=== PATIENT | female | born 1935 | race Caucasian/White ===

== ENCOUNTER 2020-02-25 03:10 | Emergency (ER) | payer MEDICARE, SELFPAY ==
--- NOTE | ~2020-02-25 | XR_ITS ---
EXAMINATION: XR shoulder RT min 2V INDICATION: Right shoulder pain, initial encounter TECHNIQUE: Four views of the right shoulder are submitted. COMPARISON: None FINDINGS: There is an acute, traumatic, closed greater tuberosity fracture of the right humerus. Alig nment at the glenohumeral and acromioclavicular joints appears normal. 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 Soft tissue swelling overlies the fracture. No additional acute osseous f indings are evident. IMPRESSION: 1. Acute greater tuberosity fracture of the right humerus. Reviewed, dictated and finalized at location A.
[2020-02-25 03:16] VITALS: BP 144/77; PULSE 74; RESP 18; TEMP 36.7; O2SAT 98
[2020-02-25 03:24] VITALS: RESP 18
[2020-02-25] MEDS: MORPHINE SULFATE 4 MG/ML INJ IV PUSH (03:51)
--- NOTE | 2020-02-25 03:53 | ED.FALL ---
HPI - Fall General Chief Complaint: Fall Stated Complaint: abd pain Time Seen by Provider: 02/25/20 03:14 History of Present Illness HPI Narrative: Patient is an 84-year-old female who presents ER with right shoulder pain. Patient was walking in her home with the lights off when she tripped over a case of bottled water fell onto her right side. Sudden onset pain. Did not strike her head or lose consciousness. No numbness or tingling to the extremity. Hurts at the shoulder anytime she moves it. Related Data Home Medications Medication Instructions Recorded Confirmed fluticasone propionate 50 2 spray NASAL DAILY 05/16/19 02/10/20 mcg/actuation nasal spray,suspension mirabegron 25 mg tablet,extended 25 mg PO DAILY 05/16/19 02/10/20 release 24 hr Allergies Allergy/AdvReac Type Severity Reaction Status Date / Time benzonatate Allergy Unknown Unknown Verified 02/25/20 03:22 ciprofloxacin Allergy Unknown Unknown Verified 02/25/20 03:22 diclofenac Allergy Unknown Unknown Verified 02/25/20 03:22 NSAIDS (Non-Steroidal Allergy Unknown Unknown Verified 02/25/20 03:22 Anti-Inflamma Review of Systems Gastrointestinal: Gastrointestinal: Denies nausea and Denies vomiting Genitourinary: Genitourinary: Denies nocturia and Denies dysuria Musculoskeletal: Musculoskeletal: Denies back pain, Reports arthralgias, Denies joint swelling and Denies muscle cramps Neurologic: Denies focal weakness and Denies numbness PMF Past Medical History Medical History (Updated 02/25/20 @ 03:58 by Ghulam Ang MD) Benzodiazepine dependence Bone spur of left foot Breast cancer History of recurrent UTI (urinary tract infection) HTN (hypertension) Knee pain Lymphoma Opioid use disorder Surgical History Surgical History H/O bilateral cataract extraction H/O breast reconstruction H/O hysterectomy with unilateral oophorectomy H/O: hysterectomy History of hip replacement History of knee replacement History of lumpectomy History of lumpectomy of left breast Social History Social History (Updated 02/10/20 @ 13:39 by Dilma Loza CMA) Smoking status: Former smoker Second hand tobacco smoke exposure: No Smoking end date: 06/26/90 Alcohol intake: current Substance use: never Substance use type: does not use Living arrangements: alone Occupation/Education: retired Gender identity (if verbalized by the patient): Female Exam Narrative: Exam Narrative: GENERAL: Well-appearing, well-nourished, and in no acute distress. HEAD: Normocephalic, atraumatic. ENT: Mucous membranes moist. CHEST: Clear to auscultation. No respiratory distress. HEART: Regular rate and rhythm. Normal peripheral pulses. EXTREMITIES: Focused exam of the right upper extremity reveals tenderness to the shoulder with limited range of motion due to pain. Normal range of motion no tenderness at the elbow or wrist. Neurovascular intact distal to the injury in the right upper extremity. SKIN: Warm, dry, no rash. NEURO: No focal deficits. Alert and oriented x3. Course Course Emergency Course: Patient informed of results. Placed in a sling by nursing staff. Contact orthopedic surgery. Follow-up outpatient. Vital Signs Vital signs: Vital Signs Temperature 98.1 F 02/25/20 03:16 Pulse Rate 74 02/25/20 03:16 Respiratory Rate 18 02/25/20 03:16 Blood Pressure 144/77 H 02/25/20 03:16 Pulse Oximetry 98 02/25/20 03:16 Temperature 98.1 F 02/25/20 03:16 Pulse Rate 74 02/25/20 03:16 Respiratory Rate 18 02/25/20 03:24 Blood Pressure 144/77 H 02/25/20 03:16 Pulse Oximetry 98 02/25/20 03:16 MDM - Fall Imaging Data My impression: X-ray right shoulder: Greater tuberosity fracture. Discharge Plan Discharge Clinical Impression: Closed fracture of greater tuberosity of humerus Patient Disposition: Home, Self-Care Condition: Stable Instructi
[2020-02-25 04:22] VITALS: BP 147/78; PULSE 77; RESP 17; O2SAT 96
--- NOTE | 2020-02-25 04:22 | PC.NURSE ---
sling applied to R arm
== END 2020-02-25 04:38 | disposition home or self-care (01) ==
PROVIDERS: Emergency Provider Emergency Medicine; PCP Family Medicine
DX: S42.251A Displaced fracture of greater tuberosity of right humerus, initial encounter for closed fracture (principal); I10 Essential (primary) hypertension; Z85.3 Personal history of malignant neoplasm of breast; Z85.72 Personal history of non-Hodgkin lymphomas; Z87.440 Personal history of urinary (tract) infections; Z98.42 Cataract extraction status, left eye; Z98.41 Cataract extraction status, right eye; Z96.649 Presence of unspecified artificial hip joint; Z96.659 Presence of unspecified artificial knee joint; Z87.891 Personal history of nicotine dependence; W18.09XA Striking against other object with subsequent fall, initial encounter
CPT/HCPCS: 73030; 96374; 99284; A4565; J2270

== ENCOUNTER 2020-03-04 02:23 | Outpatient (CLI) | payer MEDICARE, SELFPAY ==
[2020-03-04 19:20] LABS: SARS-CoV-2 RNA PCR Negative
== END 2020-03-04 02:24 | disposition home or self-care (01) ==
LOC: ANHCOVIDDT 02:24
PROVIDERS: PCP Family Medicine; Visit Provider Orthopaedic Surgery
DX: Z01.812 Encounter for preprocedural laboratory examination (principal); Z20.828 Contact with and (suspected) exposure to other viral communicable diseases
CPT/HCPCS: 87635; C9803; U0003

== ENCOUNTER 2020-03-06 14:52 | Inpatient (IN) | payer MEDICARE, SELFPAY ==
[2020-03-03 14:04] VITALS: BMI 28.3
[2020-03-06] VITALS (14 sets, daily range): BP systolic 134–178; BP diastolic 55–88; PULSE 76–97; RESP 12–18; TEMP 36.3–37.6; O2SAT 91–100; BMI 29.4; BMI 31.5
--- NOTE | ~2020-03-06 | XR_ITS ---
EXAMINATION: XR surgery orthopedic DATE: 03/06/2020 12:41 INDICATION: ORIF right humeral fracture. TECHNIQUE: 10 fluoroscopic spot images of the right humerus were obtained during procedure performed by Dr. Akins. Radiologist was not present for the imaging or procedure. The amount of fluoroscop y time used during this procedure was 1.5 minutes. COMPARISON: 02/25/2020 FINDINGS: Interval reduction and internal fixation of the previously noted comminuted fracture of the proximal right humerus with a lateral plate and screws. Alignment post fixation appears near-anatomic. There i s widening of the glenohumeral joint space which could be related to contraction or the presence of a joint effusion. IMPRESSION: 1. Near-anatomic alignment post open reduction internal fixation of a proximal right humeral fracture . Reviewed, dictated and finalized at location A. IMPRESSION: 1. Near-anatomic alignment post open reduction internal fixation of a proximal right humeral fracture.
[2020-03-06] MEDS: LACTATED RINGERS 1,000 ML 30 ML IV CONT ×2 (09:25→13:12)
[2020-03-06] MEDS: ACETAMINOPHEN 500 MG TABLET 1000 MG PO (09:27)
--- NOTE | 2020-03-06 09:39 | WPDANESEPPF ---
Anes - Initial Pre Proc Eval Procedure: Operation Date: 03/06/20 10:00 Proposed Procedures p Open Reduction Internal Fixation Right Proximal Humerus Fracture - Cruz Akins MD Date/Time: 03/06/20 09:39 Surgeon: Cruz Akins MD Pre Op Diagnosis: right proximal humerus fx Patient Data Age: 84 Gender: F Height: 5 ft 5 in Weight: 77.2 kg Allergies Allergy/AdvReac Type Severity Reaction Status Date / Time benzonatate Allergy Unknown Unknown Verified 03/06/20 09:11 ciprofloxacin Allergy Unknown Joint Pain Verified 03/06/20 09:11 diclofenac Allergy Unknown Confusion Verified 03/06/20 09:11 NSAIDS (Non-Steroidal Allergy Unknown Gastrointestinal Verified 03/06/20 09:11 Anti-Inflamma Upset/BLEEDING Home Medications Medication Instructions Recorded Confirmed Type fluticasone propionate 50 2 spray NASAL PRN PRN 05/16/19 03/06/20 History mcg/actuation nasal spray,suspension loratadine 5 mg-pseudoephedrine ER 1 tablet PO DAILY PRN #30 tablet 09/11/19 03/06/20 Rx 120 mg tablet,extended release,12hr alprazolam 0.5 mg tablet 0.5 mg PO TID PRN #90 tablet 11/28/19 03/06/20 Rx azelastine 137 mcg NASAL PRN PRN 03/03/20 03/06/20 History oxycodone-acetaminophen 1 tablet PO Q6H PRN 03/03/20 03/06/20 History Patient hx anesthesia problems: none Family hx anesthesia problems: none PMFSH Past Medical History Medical History Benzodiazepine dependence Bone spur of left foot Breast cancer History of recurrent UTI (urinary tract infection) HTN (hypertension) Knee pain Lymphoma Opioid use disorder Surgical History Surgical History H/O bilateral cataract extraction H/O breast reconstruction H/O hysterectomy with unilateral oophorectomy H/O: hysterectomy History of hip replacement History of knee replacement History of lumpectomy History of lumpectomy of left breast Social History Social History Smoking packs per day: 0.5 Smoking cigarettes per day: 10.0 Years smoked: 20 Smoking pack-years: 10.00 Smoking status: Former smoker Second hand tobacco smoke exposure: No Smoking end date: 06/26/94 Alcohol intake: current Substance use: never Substance use type: does not use Living arrangements: alone Gender identity (if verbalized by the patient): Female Spiritual care concerns: No Anes - Eval Final PreProcedure Day of Procedure 03/06/20 09:39 Patient weight: overweight Heart: regular rate and rhythm Lungs: clear to auscultation Airway: Mallampati scale class II Neurological: other (alert) Last oral intake: >/= 8 hours ASA classification: III Emergent: no Anesthetic plan: proceed Anesthesia type and monitoring: general ETT and standard monitoring Informed Consent: The patient's anesthetic plan and its attendant risks and benefits were discussed with the patient/family/POA. Questions were solicited and answers provided to the satisfaction of the patient/family/POA.
--- NOTE | 2020-03-06 09:59 | SUR.PREOP ---
IMMOBILIZER REMAINS ON PT FOR PAIN CONTROL
--- NOTE | 2020-03-06 10:00 | PM.PROC ---
Procedure Note - Detailed Date of procedure: 03/06/20 Pre-op diagnosis: right proximal humerus fx Post-op diagnosis: same Procedure performed: Open reduction internal fixation right displaced 3 part proximal humerus fracture. Description of procedure: Fixation with locking plate and suture. Greater tuberosity fragment reduced with suture. Bone quality fair. allograft cancellous bone chips placed at the lateral fracture to assist in supporting the impacted humeral head. Implants: [employer] proximal humeral locking plate system. Proximal seated plate, standard length. Anesthesia: GETA Surgeon: Cruz Akins MD Transport Analyst: Mary Jo Coto PA-C, 1st executive assistant to general counsel Estimated blood loss (mL): 200 Complications: None Condition: stable Disposition: PACU Findings: Preoperative antibiotics were given. A general anesthetic was administered. The patient was carefully placed in a slight beach chair position. The Mendez head waiter was used. Fluoroscopic images were taken to assure that AP and axillary lateral views could be taken. The shoulder was prepped and draped in the usual sterile fashion. The articulating arm rod was utilized. Longitudinal incision was created over the anterior shoulder. The deltopectoral interval was developed. The cephalic vein was protected and retracted medially. Significant hematoma and soft tissue swelling was encountered. The fracture site was carefully identified. Biceps tendon was used for orientation. Gentle manipulation brought the shaft in better alignment. The head impaction was disimpacted carefully. The greater tuberosity was sutured to the lesser and head fragment for initial provisional fixation. Thereby, creating a 2 part fracture. Bone quality was poor. The plate was fashioned to the lateral humerus. Biplanar fluoroscopy was used throughout the procedure to confirm anatomic reduction, and appropriate placement of all implants. Multiple diverging locking screws were placed proximally and distal fixation was obtained with the dynamic screw initially, followed by 2 locking screws. Supplemental suture fixation was used into the greater tuberosity to pull the fragment down into a nearly anatomic position. Overall the construct was quite stable. The wound was irrigated and closed with 1. Vicryl suture, 2 O Vicryl suture, running Quill suture followed by Steri-Strips. A Mepilex dressing was placed. The patient was placed in a sling, extubated, and brought to the recovery room in stable condition.
--- NOTE | 2020-03-06 10:02 | WPDHPUPDATE1 ---
History and Physical Update Update Date/Time: 03/06/20 10:02 History and Physical has been reviewed, including an updated exam of the patient. There are NO changes in the patient's condition. Risks, benefits, and alternatives have been discussed and questions answered. Patient agrees to proceed with procedure.
[2020-03-06] MEDS: ceFAZolin 2 GM/D5W 50 ML 2 GM/50 ML BAG IVPB (10:16)
--- NOTE | 2020-03-06 10:25 | SUR.PREOP ---
LATE NOTE, 0900; PT STATES OK TO USE LT ARM FOR IV AND BLOOD PRESSURE.
[2020-03-06] MEDS: BUPIVACAINE/EPINEPHRINE 0.5% 10 ML VIAL 20 ML INFILTRATE (10:45)
--- NOTE | 2020-03-06 14:31 | SUR.PHASEI ---
Dr. velasco is ok w/ BP and sending patient to floor.
--- NOTE | 2020-03-06 14:50 | ADMGEN ---
This patient, Fatmata Napier, was admitted to 2 Medical Room 256-. Patient/family oriented to hospital policies and general routines including ID bracelet, bed and alarms, visiting hours, pain management, procedures, bathroom and other care routines, personal items, smoking policy, room service/diet, and visiting hours. Valuables list has been completed. Information on how to activate the Rapid Response Team has been discussed. Patient/Family are encouraged to report perceived risks to care and to ask questions if they do not understand what they are told or what they should do.
[2020-03-06] MEDS: oxyCODONE/ACETAMINOPHEN 5-325 MG TABLET 2 TABLET PO ×2 (15:12→20:51)
[2020-03-06] MEDS: SODIUM CHLORIDE 0.9% IV 1,000 ML 125 ML IV CONT (15:13)
[2020-03-06] MEDS: ASPIRIN 81 MG ENTERIC TABLET PO (16:43)
[2020-03-06] MEDS: DOCUSATE SODIUM 100 MG CAPSULE PO (16:44)
--- NOTE | 2020-03-06 17:40 | PC.NURSE ---
Patient assisted to bathroom and tolerated activity well. Asked patient if she would like to sit up in the chair but patient declined and stated she would sit on the side of the bed to eat her dinner instead. Assisted to side of bed for dinner with bed alarm on.
[2020-03-06] MEDS: oxyCODONE/ACETAMINOPHEN 5-325 MG TABLET 1 TABLET PO (18:44)
[2020-03-06] MEDS: ALPRAZolam 0.5 MG TABLET PO (21:37)
[2020-03-07 00:37] VITALS: BP 119/49; PULSE 82; RESP 18; TEMP 36.7; O2SAT 95
[2020-03-07] MEDS: oxyCODONE/ACETAMINOPHEN 5-325 MG TABLET 1 TABLET PO ×3 (01:15→21:19)
[2020-03-07 04:37] VITALS: BP 146/51; PULSE 86; RESP 20; TEMP 37.3; O2SAT 93
[2020-03-07] MEDS: oxyCODONE/ACETAMINOPHEN 5-325 MG TABLET 2 TABLET PO ×2 (04:45→12:57)
[2020-03-07] MEDS: ASPIRIN 81 MG ENTERIC TABLET PO ×2 (08:10→17:12)
[2020-03-07] MEDS: DOCUSATE SODIUM 100 MG CAPSULE PO ×2 (08:10→17:12)
--- NOTE | 2020-03-07 09:28 | PM.PNORT ---
Progress Note: A&P Assessment and Plan (1) Displaced fracture of proximal end of right humerus: Code(s): S42.201A - Unspecified fracture of upper end of right humerus, initial encounter for closed fracture Status: Acute Assessment and Plan: Postop day 1 status post ORIF right proximal humerus. Doing well. Will start physical therapy and occupational therapy today. She will need 1-2 weeks of a rehab stay. Anticipate then home health care. She does live alone. She is significantly debilitated by the fracture at this time. Subjective Subjective Date/Time Seen: 03/07/20 09:28 Post Op day: 1 Interval history: Postop day 1 status post ORIF of the proximal humerus fracture. Patient is comfortable. Moderate pain. No neurologic deficit. She wishes to go to rehab, which is reasonable. Exam Narrative: Exam Narrative: Dressing intact. Moderate ecchymosis throughout the upper extremity and near the incision. She has a Mepilex dressing in place. No drainage. No erythema or warmth. No evidence for hematoma. Deltoid muscle fires. Axillary nerve sensation intact. Distal neurologic status normal. No edema mild edema. Alert oriented x3. Objective Data Vital Signs Vital Signs: Vital Signs - 24 hr 03/06/20 13:12 03/06/20 13:25 03/06/20 13:40 Temperature 36.4 C 36.4 C Pulse Rate 89 76 78 Respiratory Rate 15 14 16 Blood Pressure 173/81 H 176/77 H 161/73 H Pulse Oximetry 95 97 91 03/06/20 13:55 03/06/20 14:10 03/06/20 14:25 Temperature Pulse Rate 76 78 78 Respiratory Rate 16 18 12 Blood Pressure 175/80 H 176/79 H 169/88 H Pulse Oximetry 95 98 97 03/06/20 14:40 03/06/20 14:52 03/06/20 15:07 Temperature 36.3 C L 36.7 C Pulse Rate 79 79 79 Respiratory Rate 17 17 15 Blood Pressure 172/87 H 157/80 H 153/70 H Pulse Oximetry 97 100 100 03/06/20 15:37 03/06/20 15:52 03/06/20 16:37 Temperature 36.6 C 37.3 C Pulse Rate 77 78 77 Respiratory Rate 17 18 15 Blood Pressure 178/66 H 152/66 H Pulse Oximetry 99 95 100 03/06/20 18:50 03/07/20 00:37 03/07/20 04:37 Temperature 37.6 C 36.7 C 37.3 C Pulse Rate 97 82 86 Respiratory Rate 17 18 20 Blood Pressure 139/55 L 119/49 L 146/51 H Pulse Oximetry 98 95 93 Intake/Output Intake/Output: Intake & Output 03/04/20 03/05/20 03/06/20 03/07/20 23:59 23:59 23:59 23:59 Intake Total 985 190 Output Total 300 600 Balance 685 -410 Meds/Results Medications: Active Medications Generic Name Dose Route Start Last Admin Trade Name Freq PRN Reason Stop Dose Admin Alprazolam 0.5 mg 03/06/20 14:52 03/06/20 21:37 Xanax PO 0.5 mg TID PRN Administration anxiety Aspirin 81 mg 03/06/20 17:00 03/07/20 08:10 Aspirin Ec PO 81 mg BID ALBER Administration Azelastine HCl 1 spray 03/06/20 14:52 [place]elin NASAL PRN PRN Allergy Symptoms Docusate Sodium 100 mg 03/06/20 17:00 03/07/20 08:10 Colace Capsule PO 100 mg BID ALBER Administration Fluticasone Propionate 2 spray 03/06/20 14:52 Flonase 0.05% Nasal [place] NASAL PRN PRN Allergy Symptoms Non-Formulary Medication 1 tablet 03/06/20 14:52 Loratadine-Pseudoephedrine [Allergy Relief-D (Loratadine)] PO DAILY PRN sinus symptoms Oxycodone/Acetaminophen 1 tablet 03/06/20 14:52 03/07/20 01:15 Percocet 5-325 Mg PO 1 tablet Q6H PRN Administration pain Oxycodone/Acetaminophen 2 tablet 03/06/20 14:52 03/07/20 04:45 Percocet 5-325 Mg PO 2 tablet Q4H PRN Administration [facility] Results: ITS Impressions Intraoperative X-Ray 03/06/20 12:55 IMPRESSION: 1. Near-anatomic alignment post open reduction internal fixation of a proximal right humeral fracture.
[2020-03-07 10:15] VITALS: BP 136/60; PULSE 88; RESP 16; TEMP 37.2; O2SAT 93
[2020-03-07 14:00] VITALS: BP 132/60; PULSE 87; RESP 16; TEMP 36.6; O2SAT 95
[2020-03-07 18:00] VITALS: BP 148/60; PULSE 95; RESP 15; TEMP 36.7; O2SAT 96
[2020-03-07] MEDS: ALPRAZolam 0.5 MG TABLET PO (18:49)
[2020-03-07 22:54] VITALS: BP 144/56; PULSE 85; RESP 20; TEMP 36.6; O2SAT 96
[2020-03-08 05:55] VITALS: BP 154/65; PULSE 95; RESP 20; TEMP 36.6; O2SAT 93
[2020-03-08] MEDS: oxyCODONE/ACETAMINOPHEN 5-325 MG TABLET 1 TABLET PO ×3 (05:59→20:05)
[2020-03-08] MEDS: ASPIRIN 81 MG ENTERIC TABLET PO ×2 (08:34→16:56)
[2020-03-08] MEDS: DOCUSATE SODIUM 100 MG CAPSULE PO (08:34)
[2020-03-08] MEDS: ALPRAZolam 0.5 MG TABLET PO ×2 (10:07→16:56)
[2020-03-08 10:20] VITALS: BP 126/56; PULSE 81; RESP 16; TEMP 37.2; O2SAT 95
[2020-03-08 14:33] VITALS: BP 140/56; PULSE 79; RESP 15; TEMP 36.7; O2SAT 93
--- NOTE | 2020-03-08 16:23 | P.PNOP_ITS ---
Progress Note: A&P Assessment and Plan (1) Displaced fracture of proximal end of right humerus: Code(s): S42.201A - Unspecified fracture of upper end of right humerus, initial encounter for closed fracture Status: Acute Assessment and Plan: Pain adequately controlled. She had some confusion with 2 pain pills. The sling is ill-fitting but she can transition to the immobilizer. Making good progress with physical therapy. Neurologic status remains intact. Swelling is improving. Plan for rehab discharge tomorrow. Subjective Subjective Date/Time Seen: 03/08/20 16:23 Objective Data Vital Signs Vital Signs: Vital Signs - 24 hr 03/07/20 18:00 03/07/20 22:54 03/08/20 05:55 Temperature 36.7 C 36.6 C 36.6 C Pulse Rate 95 85 95 Respiratory Rate 15 20 20 Blood Pressure 148/60 H 144/56 H 154/65 H Pulse Oximetry 96 96 93 03/08/20 10:20 03/08/20 14:33 Temperature 37.2 C 36.7 C Pulse Rate 81 79 Respiratory Rate 16 15 Blood Pressure 126/56 L 140/56 L Pulse Oximetry 95 93 Intake/Output Intake/Output: Intake & Output 03/05/20 03/06/20 03/07/20 03/08/20 23:59 23:59 23:59 23:59 Intake Total 985 820 360 Output Total 300 1250 900 Balance 735 -836 -597 Meds/Results Medications: Active Medications Generic Name Dose Route Start Last Admin Trade Name Freq PRN Reason Stop Dose Admin Alprazolam 0.5 mg 03/06/20 14:52 03/08/20 10:07 Xanax PO 0.5 mg TID PRN Administration anxiety Aspirin 81 mg 03/06/20 17:00 03/08/20 08:34 Aspirin Ec PO 81 mg BID ALBER Administration Azelastine HCl 1 spray 03/06/20 14:52 Astelin NASAL PRN PRN Allergy Symptoms Docusate Sodium 100 mg 03/06/20 17:00 03/08/20 08:34 Colace Capsule PO 100 mg BID ALBER Administration Fluticasone Propionate 2 spray 03/06/20 14:52 Flonase 0.05% Nasal [place] NASAL PRN PRN Allergy Symptoms Mirabegron 25 mg 03/07/20 17:18 Myrbetriq PO DAILY PRN urinary frequency Oxycodone/Acetaminophen 1 tablet 03/06/20 14:52 03/08/20 13:17 Percocet 5-325 Mg PO 1 tablet Q6H PRN Administration pain Oxycodone/Acetaminophen 2 tablet 03/06/20 14:52 03/07/20 12:57 Percocet 5-325 Mg PO 2 tablet Q4H PRN Administration [facility] Results: ITS Impressions Intraoperative X-Ray 03/06/20 12:55 IMPRESSION: 1. Near-anatomic alignment post open reduction internal fixation of a proximal right humeral fracture.
[2020-03-08 18:15] VITALS: BP 144/65; PULSE 82; RESP 16; TEMP 37.2; O2SAT 95
[2020-03-08 20:00] VITALS: BP 138/58; PULSE 81; RESP 20; TEMP 36.9; O2SAT 100
[2020-03-09] MEDS: oxyCODONE/ACETAMINOPHEN 5-325 MG TABLET 1 TABLET PO ×3 (00:10→10:59)
[2020-03-09 04:00] VITALS: BP 118/64; PULSE 77; RESP 18; TEMP 36.9; O2SAT 97
[2020-03-09] MEDS: ALPRAZolam 0.5 MG TABLET PO (06:11)
[2020-03-09] MEDS: ASPIRIN 81 MG ENTERIC TABLET PO (08:15)
[2020-03-09 12:20] LABS: SARS-CoV-2 RNA PCR Negative
--- NOTE | 2020-03-25 17:07 | P.DS_ITS ---
DS: Admitting Diagnosis Admitting Diagnosis Admitting Diagnosis: right proximal humerus fx DS: Discharge Diagnosis Discharge Diagnosis (1) Displaced fracture of proximal end of right humerus: Code(s): S42.201A - Unspecified fracture of upper end of right humerus, initial encounter for closed fracture Status: Acute DS: Summary Hospital Course Reason for hospitalization: Open reduction and internal fixation of the displaced proximal humerus fracture. Hospital Course: Tolerated surgery well. Progressed appropriately with therapy. Status at Discharge Functional status at discharge: independent ambulation Overall status at discharge: patient is progressing back to baseline Time Spent with Patient Time attestation: Total time spent providing and/or coordinating discharge services: Exam Const: General: no acute distress Resp: Effort & Inspection: normal respiratory effort Skin: Other: Wound healing well. Mepilex dressing intact. No hematoma or drainage. Sling applied appropriately. Deltoid muscle fires. Axillary nerve sensation intact. Good coating machine helper strength. No edema. radial pulse palpable. Neuro: Motor exam (neuro): 5/5 motor strength present throughout Sensory Exam: normal sensation Psych: Mental Status: mental status grossly normal Speech and movement: Normal speech and movement present DS: Data Imaging Attestation: I personally reviewed and interpreted this imaging study as follows: ( Nearly anatomic ORIF of the right proximal humerus fracture. Implants intact.) Discharge Plan Discharge Attending physician on discharge: Cruz Akins Consulting providers: Shane Bill Discharging Clinician: Cruz Akins Patient Disposition: SNF Activity: may shower Diet: as tolerated Discharge Instructions: * Continue Mepilex dressing for 7 days. No further dressing needed. Steri- Strips can be removed. Use sling or immobilizer. May remove intermittently for comfort and hygiene and exercise. * Physical therapy and occupational consult evaluate and treat as indicated. Gentle range of motion passive and active-assist as tolerated. Patient Instructions: ORIF of an Arm Fracture (DC) Stand Alone Forms: General Discharge Information Discharge Medications: New oxycodone-acetaminophen 5-325 mg tablet 1 - 2 tablet PO Q6H MDD 8 tablets PRN (Reason: pain) Qty: 40 RF: 0 Continued fluticasone propionate [Allergy Relief (fluticasone)] 50 mcg/actuation spray,suspension 2 spray NASAL PRN PRN (Reason: Allergy Symptoms) RF: 0 azelastine 137 mcg (0.1 %) aerosol,spray 137 mcg NASAL PRN PRN (Reason: Allergy Symptoms) RF: 0 Myrbetriq 25 mg tablet extended release 24 hr 25 mg PO PRN PRN (Reason: urinary frequency) RF: 0 Allergy Relief-D (loratadine) 5-120 mg tablet extended release 12 hr 1 tablet PO DAILY PRN (Reason: sinus symptoms) Qty: 30 RF: 5 alprazolam 0.5 mg tablet 0.5 mg PO TID PRN (Reason: anxiety) Qty: 90 RF: 3 Discontinued oxycodone-acetaminophen 5-325 mg tablet 1 tablet PO Q6H PRN (Reason: pain) RF: 0 Date of admission: 03/06/20 14:52 Primary Care Provider: Ashlyn Pulido Admitting Provider: Cruz Akins Discharge Date/Time: 03/09/20 13:57 Attending physician on admission: Cruz Akins
== END 2020-03-09 13:57 | DRG 494 ==
LOC: ANH2MED 14:54
PROVIDERS: Admitting Provider Orthopaedic Surgery; PCP Family Medicine; Visit Provider Orthopaedic Surgery
PROC: 0PSC04Z Reposition Right Humeral Head with Internal Fixation Device, Open Approach (ICD-10-PCS; principal; 2020-03-06 10:00)
DX: S42.201A Unspecified fracture of upper end of right humerus, initial encounter for closed fracture (principal); Z87.891 Personal history of nicotine dependence; W19.XXXA Unspecified fall, initial encounter; Z23 Encounter for immunization; Z20.828 Contact with and (suspected) exposure to other viral communicable diseases
CPT/HCPCS: 87635; 90471; 90686; 97110; 97116; 97161; 97165; 97530; 97535; A4565; A9270; C1713; C9803; G0008; J0690; J2405; J2704; J3010; J7030; J7120; U0003

== ENCOUNTER 2020-05-11 09:05 | Emergency (ER) | payer MEDICARE, SELFPAY ==
--- NOTE | ~2020-05-11 | XR_ITS ---
EXAMINATION: XR tibia fibula LT 2V DATE: 05/11/2020 11:50 INDICATION: Left lower leg pain. TECHNIQUE: 2 views of left tibia and fibula were obtained. COMPARISON: Left knee radiographs 11/08/2013 FINDINGS: Bone alignment is normal. No fracture. There is mild left knee osteoarthritis. IMPRESSION: 1. Mild left knee osteoarthritis. Reviewed, dictated and finalized at location A. ASSISTANT
--- NOTE | ~2020-05-11 | US_ITS ---
EXAMINATION: US venous doppler [facility] EXAM DATE: 05/11/2020 10:34 INDICATION: left leg pain left lower leg swelling and bruising. TECHNIQUE: Multiple grayscale, color flow and Doppler images of the left lower extremity deep venous system were obtained and reviewed. There is no prior study for comparison. FINDINGS: The left common femoral, femoral and profunda veins demonstrate normal color flow, respirat ory variation, augmentation and compressibility. Compressibility, color flow confirmed within the le ft popliteal, posterior tibial, peroneal, and greater saphenous veins. IMPRESSION: 1. No left lower extremity deep venous thrombosis. Reviewed, dictated and finalized at location A. CIATE MATERIAL HANDLER
--- NOTE | ~2020-05-11 | CT_ITS ---
EXAMINATION: CT brain wo con DATE: 05/11/2020 13:35 INDICATION: Left leg paresis. TECHNIQUE: Computed tomography (CT) of the head was performed without intravenous contrast. The mA wa s adjusted according to patient size. Iterative reconstruction technique was employed. Exam dose: 52 9.67 mGy-cm total exam DLP. COMPARISON: 06/13/2019 CT brain FINDINGS: Bilateral vertebral artery and bilateral carotid siphon internal carotid artery calcificati ons are noted. No intracranial mass lesion or hemorrhage is evident. There is nonspecific diminished attenuation of the subcortical and periatrial ventricular cerebral white matter, likely due to chronic small vessel ischemic changes. No midline shift or mass effect. No subdural or epidural hematoma. No fracture or bone destruction of the cranial vault. Mastoid air cells and included paranasal sinuse s are unremarkable. IMPRESSION: Cerebral atherosclerosis and chronic small vessel ischemic changes of the cerebral white matter No acute intracranial finding Reviewed, dictated and finalized at Location A. Reviewed, dictated and finalized at location B. STOCKER
[2020-05-11 09:32] VITALS: BP 115/89; PULSE 69; RESP 18; TEMP 37.2; O2SAT 99
[2020-05-11 11:10] LABS: Basophils Absolute Auto 0.1 K/mm3 (0.0-0.1); Basophils Percent Auto 0.7 % (0.2-1.2); Eosinophils Absolute Auto 0.2 K/mm3 (0-0.3); Eosinophils Percent Auto 2.2 % (0-4.4); Immature Granulocyte Absolute 0.01 K/mm3 (0.00-0.031); Immature Granulocyte Percent A 0.1 % (0-0.5); Lymphocytes Absolute Auto 2.02 K/mm3 (0.9-3.2); Lymphocytes Percent Auto 27.6 % (18.3-44.2); Mean Corpuscular HGB Conc 33.3 g/dl (32-36); Mean Corpuscular Hemoglobin 33.2 pg (26-34); Mean Corpuscular Volume 99.5 fl (80-100); Mean Platelet Volume 8.7 fl (7.4-10.4); Monocytes Absolute Auto 0.6 K/mm3 (0.1-0.6); Monocytes Percent Auto 7.8 % (2.6-8.5); Neutrophils Absolute Auto 4.5 K/mm3 (1.3-6.7); Neutrophils Percent Auto 61.6 % (45.5-73.1); Platelet Count Result 268 k/mm3 (150-375); Red Blood Count 4.22 M/mm3 (4.2-5.4); White Blood Count 7.3 K/mm3 (4.5-10.0)
[2020-05-11 11:30] LABS: Alanine Aminotransferase 28 U/L (4-35); Albumin Level 4.4 g/dL (3.5-5.1); Alkaline Phosphatase 102 U/L (38-126); Anion Gap 8 mmol/L (8-16); Aspartate Amino Transferase 31 U/L (14-36); Bilirubin,Total 0.5 mg/dL (0.2-1.3); Blood Urea Nitrogen 15 mg/dL (7-17); Calcium 9.7 mg/dL (8.4-10.2); Carbon Dioxide 28 mmol/L (22-30); Chloride 103 mmol/L (98-107); Estimated CRCL calculation 52 ml/min; Estimated Glomerular Filt Rate > 60; Glucose 93 mg/dL (65-105); Potassium 3.8 mmol/L (3.4-5.0); Sodium 139 mmol/L (137-145)
[2020-05-11 12:40] VITALS: BP 148/70; PULSE 72; RESP 14; O2SAT 95
--- NOTE | 2020-05-11 13:07 | ED.GENADULT ---
HPI - General Adult General Chief complaint: Extremity Problem,Nontraumatic Stated complaint: leg pain Time Seen by Provider: 05/11/20 09:35 Source: patient and family History of Present Illness HPI narrative: Patient is a 85 y/o female complaining of left leg pain for 1-2 weeks. She describes her pain as aching and rates it as 5/10. She states that weight bearing aggravates her pain. She has difficulty with walking and she had several falls recently. Related Data Home Medications Medication Instructions Recorded Confirmed fluticasone propionate 50 2 spray NASAL PRN PRN 05/16/19 04/28/20 mcg/actuation nasal spray,suspension mirabegron [Myrbetriq] 25 mg PO PRN PRN 03/07/20 04/28/20 Allergies Allergy/AdvReac Type Severity Reaction Status Date / Time benzonatate Allergy Unknown Unknown Verified 05/11/20 09:38 ciprofloxacin Allergy Unknown Joint Pain Verified 05/11/20 09:38 diclofenac Allergy Unknown Confusion Verified 05/11/20 09:38 NSAIDS (Non-Steroidal Allergy Unknown Gastrointestinal Verified 05/11/20 09:38 Anti-Inflamma Upset/BLEEDING Review of Systems Constitutional: Constitutional: Denies chills, Denies fever(s), Denies headache(s) and Denies weakness Eyes: Eyes: Denies blurry vision ENT: Denies headache(s) and Denies neck pain Cardiovascular: Cardiovascular: Denies chest pain and Denies dyspnea Respiratory: Respiratory: Denies cough and Denies dyspnea Gastrointestinal: Gastrointestinal: Denies abdominal pain, Denies diarrhea, Denies nausea and Denies vomiting Genitourinary: Genitourinary: Denies hematuria and Denies dysuria Musculoskeletal: Musculoskeletal: Reports as per HPI, Denies back pain, Denies neck pain and Reports other (left lower leg pain) Neurologic: Denies headache(s) and Denies weakness [facility] Past Medical History Medical History Benzodiazepine dependence Bone spur of left foot Breast cancer History of recurrent UTI (urinary tract infection) HTN (hypertension) Knee pain Lymphoma Opioid use disorder Surgical History Surgical History H/O bilateral cataract extraction H/O breast reconstruction H/O hysterectomy with unilateral oophorectomy H/O: hysterectomy History of hip replacement History of knee replacement History of lumpectomy History of lumpectomy of left breast History of open reduction and internal fixation (ORIF) procedure (~03/06/20) Rt Proximal Humerus Family History Family History Other Carcinoma of colon Diabetes mellitus Family history of lung cancer Social History Social History Smoking packs per day: 0.5 Smoking cigarettes per day: 10.0 Years smoked: 20 Smoking pack-years: 10.00 Smoking status: Former smoker Second hand tobacco smoke exposure: No Smoking end date: 06/26/94 Alcohol intake: current Drinks per week: 1 Substance use: never Substance use type: does not use Gender identity (if verbalized by the patient): Female Spiritual care concerns: No Exam Const: General: no acute distress and well developed Orientation/consciousness: oriented to person, oriented to place, oriented to time and patient oriented x3 HENMT: Head: normocephalic Ears: external ears normal General nose exam: Normal external nose present Eyes: General: appearance normal, both eyes and all related structures Conjunctivae: conjunctivae normal Neck: Neck: normal visual inspection and full ROM Chest: Chest palpation & inspection: normal inspection of the chest and no tenderness Resp: Effort & Inspection: normal respiratory effort Auscultation: clear to auscultation bilaterally Cardio: Rate: regular rate Rhythm: regular rhythm GI: GI Palp: No abdominal tenderness and Yes Soft to palpation Skin: General skin exam: normal color,
[2020-05-11 14:16] VITALS: BP 132/70; PULSE 70; RESP 12; O2SAT 99
[2020-05-11 15:06] VITALS: BP 148/70; PULSE 96; RESP 12; O2SAT 100
== END 2020-05-11 15:06 | disposition home or self-care (01) ==
PROVIDERS: Emergency Provider Emergency Medicine; PCP Family Medicine
DX: M79.605 Pain in left leg (principal); R26.89 Other abnormalities of gait and mobility; Z85.3 Personal history of malignant neoplasm of breast; Z87.440 Personal history of urinary (tract) infections; I10 Essential (primary) hypertension; Z98.42 Cataract extraction status, left eye; Z98.41 Cataract extraction status, right eye; Z85.72 Personal history of non-Hodgkin lymphomas; Z96.649 Presence of unspecified artificial hip joint; Z96.659 Presence of unspecified artificial knee joint; Z87.891 Personal history of nicotine dependence; M17.12 Unilateral primary osteoarthritis, left knee; I67.2 Cerebral atherosclerosis
CPT/HCPCS: 36415; 70450; 73590; 80053; 85025; 93971; 99284

== ENCOUNTER → 2020-10-26 08:13 | Outpatient (CLI) | payer MEDICARE, SELFPAY ==
[2020-10-27 14:28] LABS: SARS-CoV-2 RNA PCR Negative
== END ==
PROVIDERS: Physician Assistant; PCP Family Medicine; Visit Provider Family Medicine
DX: R68.89 Other general symptoms and signs (principal); Z20.822 Contact with and (suspected) exposure to COVID-19
CPT/HCPCS: C9803; U0003; U0005

== ENCOUNTER 2021-10-03 16:42 | Emergency (ER) | payer MEDICARE, SELFPAY ==
[2021-10-03 17:14] VITALS: BP 122/63; PULSE 83; RESP 16; TEMP 36.2; O2SAT 97
--- NOTE | 2021-10-03 17:38 | ED.GENADULT ---
HPI - General Adult General Chief complaint: Eye Problems Stated complaint: drop hand engineering operator in eye Source: patient Mode of arrival: ambulatory Limitations: no limitations History of Present Illness HPI narrative: Patient presents for evaluation after getting a drop of hand engineering operator in her eye several hours ago. She states she mistakingly picked it up and accidentally placed a drop in her eye. She had some irritation immediately following the event. However, she was able to flush the eye and has no discomfort whatsoever at this time. She denies any redness, tearing, drainage or visual disturbance. She has no other concerns whatsoever. Related Data Home Medications Medication Instructions Recorded Confirmed Lactobacills gasseri-Bifidobac 1 cap PO DAILY 08/21/20 10/03/21 bifidum,longum 1.5 billion cell capsule cholecalciferol (vitamin D3) 75 75 mcg PO DAILY 08/21/20 10/03/21 mcg (3,000 unit) tablet pantoprazole 40 mg tablet,delayed 40 mg PO QAM 08/21/20 10/03/21 release Allergies Allergy/AdvReac Type Severity Reaction Status Date / Time benzonatate Allergy Unknown Unknown Verified 10/03/21 17:10 ciprofloxacin Allergy Unknown Joint Pain Verified 10/03/21 17:10 diclofenac Allergy Unknown Confusion Verified 10/03/21 17:10 NSAIDS (Non-Steroidal Allergy Unknown Gastrointestinal Verified 10/03/21 17:10 Anti-Inflamma Upset/BLEEDING Review of Systems Review of Systems: CONSTITUTIONAL: Denies fever, chills, or sweats. EYES: Reports right eye irritation earlier, now resolved. Denies any redness, tearing, drainage or visual disturbance. ENT: Denies rhinorrhea, congestion, sore throat, or otalgia. CARDIOVASCULAR: Denies chest pain, palpitations, or edema. RESPIRATORY: Denies cough or dyspnea. GASTROINTESTINAL: Denies abdominal pain, nausea, vomiting, or diarrhea. GENITOURINARY: Denies dysuria or hematuria. SKIN: Denies rash or itching. MUSCULOSKELETAL: Denies back pain, joint pain, or myalgia. NEUROLOGIC: Denies headache, numbness, dizziness, or weakness. PSYCHIATRIC: Denies anxiety or depression. [facility] Past Medical History Medical History Benzodiazepine dependence Bone spur of left foot Breast cancer PAULA (cerebral atherosclerosis) Chronic pain disorder DONNIE (generalized anxiety disorder) History of recurrent UTI (urinary tract infection) HTN (hypertension) Knee pain Lymphoma Opioid dependence Opioid use disorder Surgical History Surgical History H/O bilateral cataract extraction H/O breast reconstruction H/O hysterectomy with unilateral oophorectomy H/O: hysterectomy History of hip replacement History of knee replacement right History of lumpectomy History of lumpectomy of left breast History of open reduction and internal fixation (ORIF) procedure (~03/06/20) Rt Proximal Humerus Family History Family History Other Carcinoma of colon Diabetes mellitus Family history of lung cancer Social History Social History Social History: Smoking packs per day: 0.5 Smoking cigarettes per day: 10.0 Years smoked: 20 Smoking pack-years: 10.00 Smoking status: Former smoker Tobacco type: cigarettes Second hand tobacco smoke exposure: No Smoking end date: 06/26/94 Alcohol intake: former Substance use: never Substance use type: does not use Gender identity (if verbalized by the patient): Female Sexual Orientation (if Verbalized by the Patient): Straight or Heterosexual Spiritual care concerns: No Exam Narrative: GENERAL: Well-appearing, well-nourished, and in no acute distress. HEAD: Normocephalic, atraumatic. EYES: PERRLA and EOMI. There is no conjunctival injection or drainage from the eye. ENT: Nares clear, no rhinorr
== END 2021-10-03 17:55 | disposition home or self-care (01) ==
PROVIDERS: Emergency Provider Nurse Practitioner; PCP Family Medicine
DX: Z77.098 Contact with and (suspected) exposure to other hazardous, chiefly nonmedicinal, chemicals (principal); I10 Essential (primary) hypertension; Z85.3 Personal history of malignant neoplasm of breast; I67.2 Cerebral atherosclerosis; F41.1 Generalized anxiety disorder; Z85.72 Personal history of non-Hodgkin lymphomas; Z98.42 Cataract extraction status, left eye; Z98.41 Cataract extraction status, right eye; Z96.651 Presence of right artificial knee joint; Z96.649 Presence of unspecified artificial hip joint; Z87.891 Personal history of nicotine dependence
CPT/HCPCS: 99211; G0463

== ENCOUNTER 2022-06-16 10:39 | Observation (INO) | payer MEDICARE, SELFPAY ==
--- NOTE | ~2022-06-16 | MR_ITS ---
EXAMINATION: MR thoracic spine wo/w con DATE: 06/18/2022 12:58 INDICATION: Syringohydromyelia TECHNIQUE: Magnetic resonance imaging (MRI) of the thoracic spine was performed without and with 14 m L Multihance intravenous contrast and arise in the same contrast bolus as the cervical spine MRI whic h is been dictated separately. Sagittal localizer T1-weighted FSE of the cervicothoracic spine was ob tained. Sequences included sagittal T2-weighted FSE, sagittal T2-weighted FS FSE, sagittal T1-weighte d FSE and axial T1-weighted SE. Postcontrast sequences included axial T2-weighted FSE, sagittal T1-we ighted FS FSE, and axial T1-weighted FS SE. COMPARISON: Lumbar spine MR dated 06/17/2022 FINDINGS: 15 degree thoracic dextroscoliosis measured between T4 and T8. [id number] and T12 compression fractur es with 20% vertebral body height loss. Small Schmorl's nodes at the superior endplate of T7 and T8 a nd superior endplates of T9, T10 and T12. Mild fibrofatty and fibrous or degenerative endplate change s at a few levels throughout the thoracic spine. Marrow signal is otherwise unremarkable with no path ologic marrow replacing process. Moderate to severe disc height loss at T8-T9 and with right-sided do minance at T1-T2 and T2-T3 and left-sided predominance at T6-T7. Mild disc height loss at many of the remaining thoracic levels. Annular fissures and prominent disc bulges at T1-T2 and T2-T3 as well as at T11-T12 through L1-L2 resulting in mild central canal stenosis. There are smaller disc bulges and disc protrusions at several of the intervening levels which are without significant central canal janny nosis. There is central increased fluid signal in the cord beginning at T7-T8 and extending caudally to T11 and which is largest in transaxial dimensions at the level of T8 3 x 2 mm in maximal diameter. No abnormally enhancing cord lesions. The conus terminates at L1-L2. IMPRESSION: 1. 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 2. 15 degree thoracic dextroscoliosis with moderate to severe spondylosis. Reviewed, dictated and finalized at location A. LINE INSPECTOR IMPRESSION: 1. 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 2. 15 degree thoracic dextroscoliosis with moderate to severe spondylosis.
--- NOTE | ~2022-06-16 | XR_ITS ---
Lumbosacral Spine: AP, oblique, and lateral views Clinical History: Pain COMPARISON: 04/18/2018 Findings: 9 mm anterolisthesis of L4 over L5 is similar to prior exam. Facet joint degenerative mead es are similar to prior exam. Degenerative disc changes throughout the lumbar spine are similar to pr ior exam. The intervertebral disc spaces are preserved. The sacroiliac joints are normally outlined. Impression: No acute abnormality. Stable 9 mm anterolisthesis of L4 over L5. Additional degenerative changes are also similar to prior exam. Reviewed, dictated and finalized at location M. ITY WORKER FORGE Impression: No acute abnormality. Stable 9 mm anterolisthesis of L4 over L5. Additional degenerative changes are also similar to prior exam.
--- NOTE | ~2022-06-16 | MR_ITS ---
EXAMINATION: MR lumbar spine wo/w con DATE: 06/17/2022 09:15 INDICATION: Back pain. TECHNIQUE: Magnetic resonance imaging (MRI) of the lumbar spine was performed without and with 15 mL MultiHance intravenous contrast. COMPARISON: Lumbar spine radiographs 06/16/2022 FINDINGS: There is 17 degrees levoscoliosis of thoracolumbar spine. There is 3 mm anterolisthesis of L3 on L4 and 6 mm anterolisthesis of L4 on L5. There are chronic compression fractures of T10 and T12 with up to 1/5 loss of height. There is mildly decreased disc height at T11-T12, moderately decrease d disc height at T12-L1 and L2-L3, severely decreased disc height at L3-L4, mildly decreased disc hei ght at L4-L5, and severely decreased disc height at L5-S1 with endplate remodeling. There is ligament um flavum hypertrophy at most lumbar disc levels. Partially visualized is increased T2-weighted signa l intensity in the spinal cord at T9 and T10. The conus medullaris is at L1-L2. The following disc le vels are specifically discussed: L1-L2: The disc is bulging and has an annular fissure. There is mild right and severe left facet join t osteoarthritis. There is mild bilateral neural foraminal stenosis. There is mild central canal sten osis. L2-L3: The disc is bulging and has an annular fissure. There is severe bilateral facet joint osteoart hritis. There is mild right and moderate left neural foraminal stenosis. There is mild central canal stenosis. L3-L4: The disc is bulging and has an annular fissure. There is severe bilateral facet joint osteoart hritis. There is mild bilateral neural foraminal stenosis. There is mild central canal stenosis. L4-L5: The disc is bulging and has an annular fissure. There is severe bilateral facet joint osteoart hritis. There is mild right and moderate left neural foraminal stenosis. There is moderate central ca nal stenosis. L5-S1: The disc is bulging and has an annular fissure. There is severe bilateral facet joint osteoart hritis. There is mild bilateral neural foraminal stenosis. There is mild central canal stenosis. IMPRESSION: 1. Partially visualized increased T2-weighted signal intensity in the spinal cord at T8 and T9. 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 MRI of the cervical and thoracic spine without and with contrast i s recommended. 2. Severe lumbar spondylosis. 3. Thoracolumbar levoscoliosis. Reviewed, dictated and finalized at location A. ENT PARTNER IMPRESSION: 1. Partially visualized increased T2-weighted signal intensity in the spinal co rd at T8 and T9. 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 MRI of the cervical an d thoracic spine without and with contrast is recommended. 2. Severe lumbar spondylosis. 3. Thoracolumbar levoscoliosis.
--- NOTE | ~2022-06-16 | MR_ITS ---
EXAMINATION: MR cervical spine wo/w con DATE: 06/18/2022 12:58 INDICATION: Syringohydromyelia TECHNIQUE: Magnetic resonance imaging (MRI) of the cervical spine was performed without and with 14 m L Multihance intravenous contrast. Sequences included axial PD-weighted FSE-XL, sagittal T1-weighted SE, sagittal PD-weighted FS FRFSE-XL, axial T1-weighted SE, coronal PD-weighted FS FSE-XL, coronal T1 -weighted SE, axial T1-weighted FS SE. Postcontrast sequences included axial T1-weighted FS SE, sagit payal T1-wegihted FS SE, and sagittal STIR FSE-XL. COMPARISON: None FINDINGS: 15 degree cervical levocurvature. Straightening of the normal cervical lordosis. 2 mm anterolisthesis C7 on T1. Mild vertebral body height loss at C6 which appears chronic without signal changes. This m ay be degenerative in etiology with severe disc height loss and degenerative endplate remodeling at C 6-C7. Remaining vertebral body heights are normal. Additional severe disc height loss with developing fusion at the bilateral uncovertebral joints at C4-C5 and with pulmonary vascular degenerative endpl ate changes at C3-C4 and T1-T2. Moderate to severe right-sided predominant disc height loss at C5-C6. Mild disc height loss at C2-C3 and C7-T1. Cord signal intensity is normal with no syringohydromyelia or abnormally enhancing cord lesions in the cervical and visualized upper thoracic cord. Cerebellar tonsils remain well above the level of the foramen magnum with no Chiari malformation. Cervical soft tissues are unremarkable. The following disc levels are specifically discussed: C2-C3: The disc does not extend beyond the endplate margin. There is no uncovertebral joint osteoarth ritis. There is moderate left and severe right facet joint osteoarthritis. There is no neural foramin al stenosis. There is no central canal stenosis. C3-C4: Disc is bulging with annular fissure. There is moderate left and severe right uncovertebral mahesh int osteoarthritis. There is severe bilateral facet joint osteoarthritis. There is mild bilateral marielle ral foraminal stenosis. There is mild central canal stenosis with minimal flattening of the ventral s urface of the cord. C4-C5: Small central to left paracentral bridging posterior osteophyte. Bilateral uncovertebral joint s are fused with mild hypertrophic changes. Bilateral facet joints are also fused with prominent hype rtrophic change on the right and mild hypertrophic change on the left. There is mild bilateral neural foraminal stenosis. There is mild central canal stenosis with slight flattening of the left paracent ral ventral surface of the cord. C5-C6: Disc is bulging with annular fissure. There is severe bilateral uncovertebral joint osteoarthr itis. There is severe bilateral facet joint osteoarthritis. There is moderate bilateral neural forami nal stenosis. There is mild central canal stenosis with slight flattening of the left ventral surface of the cord. C6-C7: Posterior disc osteophyte complex. There is severe bilateral uncovertebral joint osteoarthriti s. There is mild left and moderate right facet joint osteoarthritis. There is moderate left and mild to moderate right neural foraminal stenosis. There is mild central canal stenosis with mild indentati on of the right ventral surface of the cord. C7-T1: Disc is mildly bulging with annular fissure. There is mild bilateral uncovertebral joint osteo arthritis. There is severe bilateral facet joint osteoarthritis. There is mild bilateral neural cade inal stenosis. There is mild central canal stenosis. IMPRESSION: 1. Severe cervical spondylosis. No acute osseous abnormality, cervical syringohydromyelia, abnormally enhancement or other abnormal cord lesions. Reviewed, dictated and finalized at location A. R COAT SPRAYER IMPRESS
--- NOTE | ~2022-06-16 | US_ITS ---
Duplex Sonography of the left extremity: Indication: Pain Sagittal and transverse B-mode images as well as color-flow imaging were performed on the left femora l and popliteal veins. B-mode examination was done without and with compression in the transverse pl ane. There is good visualization of the common femoral, proximal profunda femoral, superficial femor al, greater saphenous, and popliteal veins. Normal flow was seen on color-flow imaging. Normal compr essibility was demonstrated. Left posterior tibial, peroneal, and gastrocnemius veins also demonstrate normal flow and compressibi lity. Impression: No evidence of deep vein thrombosis involving the left lower extremity. Reviewed, dictated and finalized at location M. SKIDDER Impression: No evidence of deep vein thrombosis involving the left lower extrem ity.
--- NOTE | ~2022-06-16 | XR_ITS ---
EXAMINATION: XR knee LT min 4V DATE: 06/16/2022 14:03 INDICATION: Left knee pain radiating down the left lower leg. TECHNIQUE: Anteroposterior, 2 oblique and crosstable lateral views of the left knee were obtained COMPARISON: None. FINDINGS: Left total knee arthroplasty without patellar resurfacing which appears well seated in near-anatomic alignment. No fracture. Minimal left knee joint effusion versus synovitis at the suprapatellar pouch. Prominent enthesophyte at the proximal pole of the patella. IMPRESSION: 1. Left total knee arthroplasty. No acute osseous abnormality. Reviewed, dictated and finalized at location B. TAL LAPPER
--- NOTE | ~2022-06-16 | CT_ITS ---
EXAMINATION: CT brain wo con DATE: 06/16/2022 14:24 INDICATION: Left lower limb pain and weakness TECHNIQUE: Computed tomography (CT) of the head was performed without intravenous contrast. Sagittal and coronal reconstructions were performed. The mA was adjusted according to patient size. Iterative reconstruction technique was employed. The dose-length product was 605.33 mGy-cm. COMPARISON: 05/11/2020 FINDINGS: No acute intracranial hemorrhage, acute infarction or abnormal extra axial fluid collection. There is mild to moderate scattered white matter hypoattenuation consistent with chronic small vessel ischemi c disease. Ventricles are normal and symmetric. No mass/mass effect. The orbits, paranasal sinuses a nd mastoid air cells are normal. IMPRESSION: 1. No acute intracranial process. 2. Stable appearance of mild to moderate white matter hypoattenuation consistent with chronic small v essel ischemic disease. Reviewed, dictated and finalized at location B. NOLOGY INTERN IMPRESSION: 1. No acute intracranial process. 2. Stable appearance of mild to moderate white matter hypoattenuation consisten t with chronic small vessel ischemic disease.
[2022-06-16 11:03] VITALS: BP 134/70; PULSE 83; RESP 16; TEMP 36.1; O2SAT 100
--- NOTE | 2022-06-16 12:58 | ED.GENADULT ---
HPI - General Adult General Chief complaint: Back Pain/Injury Stated complaint: back, left knee pain Time Seen by Provider: 06/16/22 11:26 Source: patient, family and old records reviewed Mode of arrival: ambulatory Limitations: no limitations History of Present Illness HPI narrative: Patient is an 87 y/o female who presents to the ED with c/o LLE pain. Patient reports having pain for the last 5 to 6 days in her left lower extremity when she tries to ambulate. She denies any pain when laying or sitting, only when she attempts to bear weight on her left lower extremity. She has been using a walker for assistance with ambulation. She is afraid she is going to fall. She states pain is in entire leg and her leg feels . Denies numbness or tingling. Denies injury or fall. Denies specific hip or knee pain. Denies significant back pain. Denies swelling, wounds, redness to left lower extremity. Denies numbness, incontinence of bowel or bladder. Patient was seen at [facility] ED on Monday and had negative CT scans of her pelvis and back per patient's friend/POA via phone. Patient was prescribed Percocet and a Medrol Dosepak and has been taking these w/o relief. Related Data Home Medications Medication Instructions Recorded Confirmed Lactobacills gasseri-Bifidobac 1 cap PO DAILY 08/21/20 10/03/21 bifidum,longum 1.5 billion cell capsule (Probiotic Colon Care) cholecalciferol (vitamin D3) 75 75 mcg PO DAILY 08/21/20 10/03/21 mcg (3,000 unit) tablet pantoprazole 40 mg tablet,delayed 40 mg PO QAM 08/21/20 10/03/21 release Allergies Allergy/AdvReac Type Severity Reaction Status Date / Time benzonatate Allergy Unknown Unknown Verified 10/03/21 17:10 ciprofloxacin Allergy Unknown Joint Pain Verified 10/03/21 17:10 diclofenac Allergy Unknown Confusion Verified 10/03/21 17:10 NSAIDS (Non-Steroidal Allergy Unknown Gastrointestinal Verified 10/03/21 17:10 Anti-Inflamma Upset/BLEEDING Review of Systems Review of Systems: CONSTITUTIONAL: Denies fever, chills, or sweats. CARDIOVASCULAR: Denies chest pain. RESPIRATORY: Denies dyspnea. GI/: Denies nausea, vomiting, incontinence. SKIN: Denies wounds, swelling, redness to LLE. MUSCULOSKELETAL: Reports LLE pain. Denies back pain, hip or knee pain. NEUROLOGIC: Denies tingling, numbness, or weakness. All systems reviewed & are unremarkable except as noted in HPI and below PMFSH Past Medical History Medical History Benzodiazepine dependence Bone spur of left foot Breast cancer PAULA (cerebral atherosclerosis) Chronic pain disorder DONNIE (generalized anxiety disorder) History of recurrent UTI (urinary tract infection) HTN (hypertension) Knee pain Lymphoma Opioid dependence Opioid use disorder Surgical History Surgical History H/O bilateral cataract extraction H/O breast reconstruction H/O hysterectomy with unilateral oophorectomy H/O: hysterectomy History of hip replacement History of knee replacement right History of lumpectomy History of lumpectomy of left breast History of open reduction and internal fixation (ORIF) procedure (~03/06/20) Rt Proximal Humerus Family History Family History (Reviewed 10/03/21 @ 17:41 by Jorge A Dinero, [facility], ) Other Carcinoma of colon Diabetes mellitus Family history of lung cancer Social History Social History Social History: Smoking packs per day: 0.5 Smoking cigarettes per day: 10.0 Years smoked: 20 Smoking pack-years: 10.00 Smoking status: Former smoker Tobacco type: cigarettes Second hand tobacco smoke exposure: No Smoking end date: 06/26/94 Alcohol intake: former Substance use: never Substance use type: does not use Gender identity (if verbalized by the patient): Female Sexual Orientation (if Verbal
--- NOTE | 2022-06-16 18:04 | PC.NURSE ---
labs drawn by phlebotomy
[2022-06-16 18:09] LABS: Basophils Percent Auto 0.5 % (0.2-1.2); Eosinophils Absolute Auto 0.1 K/mm3 (0-0.3); Eosinophils Percent Auto 1.1 % (0-4.4); Hematocrit 42.2 % (37.0-47.0); Immature Granulocyte Absolute 0.01 K/mm3 (0.00-0.031); Immature Granulocyte Percent A 0.2 % (0-0.5); Lymphocytes Absolute Auto 1.27 K/mm3 (0.9-3.2); Lymphocytes Percent Auto 22.7 % (18.3-44.2); Mean Corpuscular HGB Conc 33.2 g/dl (32-36); Mean Corpuscular Hemoglobin 33.9 pg (26-34); Mean Corpuscular Volume 102.2 fl (80-100); Mean Platelet Volume 8.6 fl (7.4-10.4); Monocytes Absolute Auto 0.7 K/mm3 (0.1-0.6); Monocytes Percent Auto 11.6 % (2.6-8.5); Neutrophils Absolute Auto 3.6 K/mm3 (1.3-6.7); Neutrophils Percent Auto 63.9 % (45.5-73.1); Platelet Count Result 252 k/mm3 (150-375); Red Blood Count 4.13 M/mm3 (4.2-5.4); Red Cell Distribution Width 12.8 % (11.5-14.5); White Blood Count 5.6 K/mm3 (4.5-10.0)
[2022-06-16 18:21] LABS: Alanine Aminotransferase 25 U/L (6-35); Albumin Level 4.6 g/dL (3.5-5.1); Alkaline Phosphatase 108 U/L (38-126); Anion Gap 8 mmol/L (8-16); Aspartate Amino Transferase 27 U/L (14-36); Bilirubin,Total 0.8 mg/dL (0.2-1.3); Blood Urea Nitrogen 21 mg/dL (7-17); Calcium 9.4 mg/dL (8.4-10.2); Carbon Dioxide 27 mmol/L (22-30); Chloride 99 mmol/L (98-107); Estimated CRCL calculation 50 ml/min; Estimated Glomerular Filt Rate > 60; Glucose 91 mg/dL (65-110); Potassium 3.6 mmol/L (3.4-5.0); Sodium 134 mmol/L (137-145)
[2022-06-16 19:14] LABS: Influenza A QL RT-PCR Negative (Negative); Influenza B QL RT-PCR Negative (Negative); RSV RNA, RT-PCR Negative (Negative); SARS-CoV-2 RNA PCR Negative
--- NOTE | 2022-06-16 19:51 | PC.NURSE ---
Kaylee LEIGH notified that 4 RNs attempted IV access without success. Requested order for PO pain medications.
--- NOTE | 2022-06-16 20:12 | PM.IMHP ---
H&P: HPI History of Present Illness Date/Time: 06/16/22 20:12 Chief Complaint: Left knee pain Narrative: This is an 87-year-old female patient who resides in her own home. She stated that she is getting care at home but it within the next year she will probably need to go to in anesthesiologist assistant certified living. The patient stated that she has such severe pain to her left knee that she is not able to ambulate. This pain has been going on for 5-6 days. Patient has been using a walker for assistance with ambulation. She states that her entire leg and her foot feel . She denies numbness or tingling. She states that she does have some back pain at times. She is continent of bowel and bladder. The patient stated that she was scheduled to have an MRI to lower back tomorrow but since the weather is better she is not able to get over there. The patient stated that she was recently at [place] and her CT of the pelvis and back were negative. The patient has been on Percocet and a Medrol Dosepak. Without any relief. The patient is negative for influenza A/B RSV and COVID. Head CT was read as no acute intracranial process. Stable appearance of [id number] white matter hypoattenuation consistent with chronic small vessel ischemic disease. Knee x-ray was read as left total knee arthroplasty no acute osseous abnormality. Lumbar spine x-ray No acute abnormality. Stable 9 mm anterolisthesis of L4 over L5. Additional degenerative changes are also similar to prior exam. Ultrasound of the left leg shows no evidence of deep vein thrombosis involving the left lower extremity. ED staff attempted to ambulate the patient and the patient was unable to cooperate or bear weight on the left knee. Patient was given fentanyl in the emergency room. The patient is being admitted to observation status on the date of service of 06/16/2022 Review of Systems Review of Systems: See HPI All systems reviewed & are unremarkable except as noted in HPI and below Constitutional: Constitutional: Reports as per HPI and Reports no additional constitutional complaints Eyes: Eyes: Reports as per HPI and Reports no additional eye complaints ENT: Reports system reviewed and no additional complaints, except as documented and Reports Normal hearing present Cardiovascular: Cardiovascular: Reports no additional cardiovascular complaints Respiratory: Respiratory: Reports no additional respiratory complaints and Reports no additional respiratory complaints Gastrointestinal: Gastrointestinal: Reports as per HPI and Reports no additional gastrointestinal complaints Musculoskeletal: Musculoskeletal: Reports no additional musculoskeletal complaints Integumentary/Breasts: Skin/Breast: Reports system reviewed and no additional complaints, except as docu and Reports as per HPI Neurologic: Reports system reviewed and no additional complaints, except as documented, Reports as per HPI and Reports Normal hearing present Psychiatric: Psychiatric: Reports no additional psychiatric complaints and Reports as per HPI Endocrine: Endocrine: Reports no additional endocrine complaints Hematologic/Lymphatic: Hematologic/Lymphatic: Reports no additional hematologic/lymphatic complaints Allergic/Immunologic: Allergic/Immunologic: Reports no additional allergic/immunologic complaints [facility] Past Medical History Medical History (Updated 06/17/22 @ 00:25 by Christine Dior NP) Benzodiazepine dependence Bone spur of left foot Breast cancer PAULA (cerebral atherosclerosis) Chronic GERD Chronic pain disorder DONNIE (generalized anxiety disorder) History of recurrent UTI (urinary tract infection) HTN (hypertension) Knee pain Lymphoma Opioid dependence Opioid use disorder Surgical History Surgical History H/O bilateral cataract extraction H/O breast reconstruction H/O hysterectomy with unilateral oophorectomy H/O: hysterectomy History of hip repl
[2022-06-16 21:15] VITALS: BP 154/69; PULSE 82; RESP 18; TEMP 36.6; O2SAT 99
[2022-06-16 22:02] VITALS: BP 119/96; PULSE 77; RESP 20; TEMP 36.3; O2SAT 98; BMI 27.4
--- NOTE | 2022-06-16 22:08 | ADMGEN ---
This patient, Fatmata Napier, was admitted to Medical Room 249-01. Patient/family oriented to hospital policies and general routines including ID bracelet, bed and alarms, visiting hours, pain management, procedures, bathroom and other care routines, personal items, smoking policy, room service/diet, and visiting hours. Information on how to activate the Rapid Response Team has been discussed. Patient/Family are encouraged to report perceived risks to care and to ask questions if they do not understand what they are told or what they should do.
[2022-06-17 05:21] VITALS: BP 148/68; PULSE 73; RESP 18; TEMP 36.4; O2SAT 99
[2022-06-17 06:16] LABS: Basophils Percent Auto 0.6 % (0.2-1.2); Eosinophils Absolute Auto 0.1 K/mm3 (0-0.3); Eosinophils Percent Auto 0.9 % (0-4.4); Hematocrit 38.9 % (37.0-47.0); Hemoglobin 12.9 g/dL (12.0-15.0); Immature Granulocyte Absolute 0.01 K/mm3 (0.00-0.031); Immature Granulocyte Percent A 0.2 % (0-0.5); Lymphocytes Absolute Auto 1.08 K/mm3 (0.9-3.2); Lymphocytes Percent Auto 20.1 % (18.3-44.2); Mean Corpuscular HGB Conc 33.2 g/dl (32-36); Mean Corpuscular Hemoglobin 33.9 pg (26-34); Mean Corpuscular Volume 102.4 fl (80-100); Mean Platelet Volume 8.8 fl (7.4-10.4); Monocytes Absolute Auto 0.5 K/mm3 (0.1-0.6); Monocytes Percent Auto 9.9 % (2.6-8.5); Neutrophils Absolute Auto 3.7 K/mm3 (1.3-6.7); Neutrophils Percent Auto 68.3 % (45.5-73.1); Platelet Count Result 253 k/mm3 (150-375); Red Cell Distribution Width 12.7 % (11.5-14.5); White Blood Count 5.4 K/mm3 (4.5-10.0)
[2022-06-17 06:43] LABS: Alanine Aminotransferase 22 U/L (6-35); Albumin Level 3.9 g/dL (3.5-5.1); Alkaline Phosphatase 99 U/L (38-126); Anion Gap 5 mmol/L (8-16); Aspartate Amino Transferase 22 U/L (14-36); Bilirubin,Total 0.7 mg/dL (0.2-1.3); Blood Urea Nitrogen 19 mg/dL (7-17); Calcium 8.9 mg/dL (8.4-10.2); Carbon Dioxide 26 mmol/L (22-30); Chloride 107 mmol/L (98-107); Estimated CRCL calculation 58 ml/min; Estimated Glomerular Filt Rate > 60; Glucose 89 mg/dL (65-110); Lactate Dehydrogenase 160 U/L (120-246); Magnesium 2.2 mg/dL (1.6-2.3); Potassium 3.9 mmol/L (3.4-5.0); Sodium 138 mmol/L (137-145)
[2022-06-17] MEDS: FLUTICASONE PROPIONATE 0.05% NA SPR 16 GM BTL (*BKC) 1 SPRAY NASAL ×2 (08:28→16:44)
[2022-06-17] MEDS: PANTOPRAZOLE 40 MG TABLET PO (08:31)
[2022-06-17] MEDS: MIRABEGRON 25 MG ER TABLET PO (08:31)
[2022-06-17] MEDS: CHOLECALCIFEROL 1,000 UNITS TABLET 3000 UNITS PO (08:31)
[2022-06-17] MEDS: methylPREDNISolone 4 MG TABLET PO ×3 (08:31→20:59)
[2022-06-17 08:32] VITALS: RESP 18; O2SAT 99
[2022-06-17] MEDS: AZELASTINE HCL NASAL 0.1% 137 MCG/SPR 30 ML BTL 1 SPRAY NASAL ×2 (08:32→21:00)
--- NOTE | 2022-06-17 09:01 | PCPTNOTE ---
Pt off the floor for MRI. Will follow.
[2022-06-17 10:19] LABS: Folic Acid > 20.0 ng/mL (2.76->20)
[2022-06-17] MEDS: oxyCODONE/ACETAMINOPHEN (*CRX) 5-325 MG TABLET PO ×3 (10:47→20:57)
[2022-06-17] MEDS: ALPRAZolam (*CRX) 0.5 MG TABLET PO ×2 (13:13→20:57)
[2022-06-17 14:00] VITALS: BP 119/55; PULSE 85; RESP 16; TEMP 36.5; O2SAT 100
--- NOTE | 2022-06-17 16:44 | PM.IMPN ---
Progress Note: A&P Assessment and Plan (1) Acute pain of left lower extremity: Code(s): M79.605 - Pain in left leg Status: Acute Assessment and Plan: Patient presents to emergency room with inability to walk due to left leg weakness. Left lower extremity venous Doppler was negative for DVT Lumbar spine x-ray shows no acute abnormalities. Left knee x-ray shows left total knee arthroplasty without acute osseous abnormalities. Head CT shows no acute intracranial process. Lumbar spine MRI shows severe bilateral facet osteoarthritis at multiple levels, mild neural foraminal stenosis at multiple levels and mild -moderate central canal stenosis and multiple levels. Is also a partially visualized increased signal intensity in the spinal cord at T8-T9 which may be syringohydromyelia. This may have been noted at prior workup per patient's history and thus may be an old finding versus the etiology of her current condition. Patient's condition is improved with able to bear weight on the leg. This could be related to the steroids. Will continue steroid taper. Neurology consult. Will proceed with an MRI of the cervical and thoracic spine. Further recommendation as course dictates. Continue with PT and OT. Placement being arranged. (2) Unable to ambulate: Code(s): R26.2 - Difficulty in walking, not elsewhere classified Status: Acute Assessment and Plan: As above. Continue PT and OT. (3) DONNIE (generalized anxiety disorder): Code(s): F41.1 - Generalized anxiety disorder Status: Acute Assessment and Plan: Mood stable. Xanax available as needed. (4) Chronic GERD: Code(s): K21.9 - Gastro-esophageal reflux disease without esophagitis Status: Acute Assessment and Plan: Stable. Continue PPI. Subjective Date/time seen: 06/17/22 16:44 Interval history: 87yo female with HTN, DONNIE and breast CA here for left leg weakness. She has had this before in the past with similar workup. Surprisingly, this also happened around Xmas. She was told she had a 'bubble' in her back but felt to be chronic. She states her leg feels better. Able to bear weight on the left leg. She was able to walk to the bathroom but needed a WC to get back to the bed. Slept okay last night. No hx of MS or SLE. Exam Narrative: AF 97.7 119/55 85 16 100% ra Gen - NARD Chest - CTA bilaterally, nml RR CV - RRR S1/S2 Abd - Soft, NT/ND, Positive BS Ext - No pedal edema Neuro - Alert and oriented. Dorsiflexion and plantar flexion normal. No ankle clonus. No hyperreflexia. Left hip flexor 3-/5 Psych - Nml mood and affect Skin - Warm and dry Objective Data Vital Signs Vital Signs: Vital Signs - 24 hr 06/16/22 21:15 06/16/22 22:02 06/17/22 05:21 Temperature 97.8 F 97.4 F L 97.6 F Pulse Rate 82 77 73 Respiratory Rate 18 20 18 Blood Pressure 154/69 H 119/96 H 148/68 H Pulse Oximetry 99 98 99 Oxygen Delivery 06/17/22 10:10 06/17/22 08:32 06/17/22 11:25 Temperature Pulse Rate Respiratory Rate 18 Blood Pressure Pulse Oximetry 99 Oxygen Delivery Room Air Room Air Room Air 06/17/22 14:00 Temperature 97.7 F Pulse Rate 85 Respiratory Rate 16 Blood Pressure 119/55 L Pulse Oximetry 100 Oxygen Delivery Intake/Output Intake/Output: Intake & Output 06/14/22 06/15/22 06/16/22 06/17/22 23:59 23:59 23:59 23:59 Intake Total 565 Output Total 400 Balance 165 Meds/Results Medications: Active Medications Generic Name Dose Route Start Last Admin Trade Name Freq PRN Reason Stop Dose Admin Alprazolam 0.5 mg 06/17/22 00:16 06/17/22 13:13 Alprazolam (*Crx) 0.5 Mg Tablet PO 0.5 mg TID PRN Administration anxiety Azelastine HCl 1 spray 06/17/22 09:00 06/17/22 08:32 Azelastine Hcl Nasal 0.1% 137 Mcg/Spr 30 Ml Btl NASAL 1 spray Q12HR ALBER Administration Fentanyl Citrate 25 mcg 06/17/22 00:23 Fentanyl C
[2022-06-17 20:00] VITALS: PULSE 89; RESP 20; O2SAT 94
[2022-06-17 21:43] VITALS: BP 105/85; PULSE 89; RESP 20; TEMP 36.6; O2SAT 94
[2022-06-18 06:00] VITALS: BP 125/63; PULSE 71; RESP 16; TEMP 37.1; O2SAT 95
[2022-06-18] MEDS: PANTOPRAZOLE 40 MG TABLET PO (08:10)
[2022-06-18] MEDS: methylPREDNISolone 4 MG TABLET PO (08:10)
[2022-06-18] MEDS: CHOLECALCIFEROL 1,000 UNITS TABLET 3000 UNITS PO (08:10)
[2022-06-18] MEDS: AZELASTINE HCL NASAL 0.1% 137 MCG/SPR 30 ML BTL 1 SPRAY NASAL (08:10)
[2022-06-18] MEDS: MIRABEGRON 25 MG ER TABLET PO (08:10)
[2022-06-18] MEDS: oxyCODONE/ACETAMINOPHEN (*CRX) 5-325 MG TABLET PO ×3 (08:17→20:41)
--- NOTE | 2022-06-18 11:26 | PCPTNOTE ---
Attempted to see patient for PT, however patient out of room for testing.
--- NOTE | 2022-06-18 11:35 | PCPTNOTE ---
Patient refused treatment this session due to patient wanting to rest at this time. Encouraged patient to participate, however patient continued to refuse.
--- NOTE | 2022-06-18 12:16 | PM.IMPN ---
Progress Note: A&P Assessment and Plan (1) Acute pain of left lower extremity: Code(s): M79.605 - Pain in left leg Status: Acute Assessment and Plan: Patient presents to emergency room with inability to walk due to left leg weakness and pain. Left lower extremity venous Doppler was negative for DVT. Lumbar spine x-ray shows no acute abnormalities. Left knee x-ray shows left total knee arthroplasty without acute osseous abnormalities. Head CT shows no acute intracranial process. Lumbar spine MRI shows severe bilateral facet osteoarthritis at multiple levels, mild neural foraminal stenosis at multiple levels and mild -moderate central canal stenosis and multiple levels. 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 This may have been noted at prior workup per patient's history and thus may be an old finding versus the etiology of her current condition. Patient's condition is improving with able to walk better and exam is also improved. MRI of the cervical and thoracic spine ordered. Further recommendation as course dictates. Continue with PT and OT. Continue steroids. Placement being arranged. (2) Unable to ambulate: Code(s): R26.2 - Difficulty in walking, not elsewhere classified Status: Acute Assessment and Plan: As above. Continue PT and OT. (3) DONNIE (generalized anxiety disorder): Code(s): F41.1 - Generalized anxiety disorder Status: Acute Assessment and Plan: Mood stable. Xanax available as needed. (4) Chronic GERD: Code(s): K21.9 - Gastro-esophageal reflux disease without esophagitis Status: Acute Assessment and Plan: Stable. Continue PPI. Subjective Date/time seen: 06/18/22 12:16 Interval history: 87yo female with HTN, DONNIE and breast CA here for left leg weakness. No issues overnight. Slept well. She states she is now able to walk to the bathroom and back. Leg pain is improved Exam Narrative: AF 98.8 125/63 71 16 95% ra Gen - NARD Chest - CTA bilaterally, nml RR CV - RRR S1/S2 Abd - Soft, NT/ND, Positive BS Ext - No pedal edema Neuro - Dorsiflexion and plantar flexion normal. No ankle clonus. No hyperreflexia. Left hip flexor improved to 3/5 Psych - Nml mood and affect Skin - Warm and dry Objective Data Vital Signs Vital Signs: Vital Signs - 24 hr 06/17/22 14:00 06/17/22 21:43 06/17/22 20:00 Temperature 97.7 F 98 F Pulse Rate 85 89 89 Respiratory Rate 16 20 20 Blood Pressure 119/55 L 105/85 Pulse Oximetry 100 94 94 Oxygen Delivery Room Air 06/18/22 06:00 06/18/22 08:11 Temperature 98.8 F Pulse Rate 71 Respiratory Rate 16 Blood Pressure 125/63 Pulse Oximetry 95 Oxygen Delivery Room Air Intake/Output Intake/Output: Intake & Output 06/15/22 06/16/22 06/17/22 06/18/22 23:59 23:59 23:59 23:59 Intake Total 1635 120 Output Total 1000 Balance 635 120 Meds/Results Medications: Active Medications Generic Name Dose Route Start Last Admin Trade Name Freq PRN Reason Stop Dose Admin Alprazolam 0.5 mg 06/17/22 00:16 06/17/22 20:57 Alprazolam (*Crx) 0.5 Mg Tablet PO 0.5 mg TID PRN Administration anxiety Azelastine HCl 1 spray 06/18/22 12:03 Azelastine Hcl Nasal 0.1% 137 Mcg/Spr 30 Ml Btl NASAL Q12HR PRN Nasal Congestion Fentanyl Citrate 25 mcg 06/17/22 00:23 Fentanyl Citrate Inj (*Crx) 100 Mcg/2 Ml Vial IV PUSH Q4H PRN Pain Rated 7-10 Fluticasone Propionate 1 spray 06/17/22 09:00 06/18/22 08:11 Fluticasone Propionate 0.05% Na Spr 16 Gm Btl (*Bkc) NASAL Not Given BID ALBER Mirabegron 25 mg 06/17/22 00:16 06/18/22 08:10 Mirabegron 25 Mg Er Tablet PO 25 mg DAILY PRN Administration urinary frequency Oxycodone/Acetaminophen 1 - 2 tablet 06/17/22 00:16 06/18/22 08:17 Oxycodone/Acetaminophen (*Crx) 5-3
--- NOTE | 2022-06-18 13:12 | PCPTNOTE ---
Attempted to see patient for PT, however patient refused. Patient reported she just got back to the room from MRI and does not feel like doing PT today due to being worn out from testing. Patient reported she has been walking to and from bathroom with nursing.
[2022-06-18] MEDS: ALPRAZolam (*CRX) 0.5 MG TABLET PO ×2 (13:53→20:42)
[2022-06-18 14:00] VITALS: BP 127/62; PULSE 78; RESP 20; TEMP 36.8; O2SAT 91
[2022-06-18] MEDS: FLUTICASONE PROPIONATE 0.05% NA SPR 16 GM BTL (*BKC) 1 SPRAY NASAL (16:54)
[2022-06-18 20:00] VITALS: PULSE 90; RESP 16; O2SAT 95
[2022-06-18] MEDS: polyethylene glycoL 3350 17 GM POWD.PACK PO (20:42)
[2022-06-18 21:12] VITALS: BP 114/62; PULSE 90; RESP 16; TEMP 36.4; O2SAT 95
[2022-06-19 05:50] VITALS: BP 136/61; PULSE 69; RESP 16; TEMP 36.4; O2SAT 96
[2022-06-19] MEDS: CHOLECALCIFEROL 1,000 UNITS TABLET 3000 UNITS PO (08:27)
[2022-06-19] MEDS: FLUTICASONE PROPIONATE 0.05% NA SPR 16 GM BTL (*BKC) 1 SPRAY NASAL ×2 (08:27→16:57)
[2022-06-19] MEDS: oxyCODONE/ACETAMINOPHEN (*CRX) 5-325 MG TABLET PO ×3 (08:28→23:00)
[2022-06-19] MEDS: PANTOPRAZOLE 40 MG TABLET PO (08:28)
[2022-06-19] MEDS: ALPRAZolam (*CRX) 0.5 MG TABLET PO ×2 (10:22→23:00)
--- NOTE | 2022-06-19 14:25 | PM.IMPN ---
Progress Note: A&P Assessment and Plan (1) Acute pain of left lower extremity: Code(s): M79.605 - Pain in left leg Status: Acute Assessment and Plan: Patient presents to emergency room with inability to walk due to left leg weakness and pain. Left lower extremity venous Doppler was negative for DVT. Lumbar spine x-ray shows no acute abnormalities. Left knee x-ray shows left total knee arthroplasty without acute osseous abnormalities. Head CT shows no acute intracranial process. Lumbar spine MRI shows severe bilateral facet osteoarthritis at multiple levels, mild neural foraminal stenosis at multiple levels and mild -moderate central canal stenosis and multiple levels. 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 This may have been noted at prior workup per patient's history and thus may be an old finding versus the etiology of her current condition. Patient's condition is improving with able to walk better and exam is also improved. MRI of the cervical and thoracic spine ordered. Further recommendation as course dictates. Continue with PT and OT. Continue steroids. Placement being arranged. (2) Unable to ambulate: Code(s): R26.2 - Difficulty in walking, not elsewhere classified Status: Acute Assessment and Plan: As above. Continue PT and OT. (3) DONNIE (generalized anxiety disorder): Code(s): F41.1 - Generalized anxiety disorder Status: Acute Assessment and Plan: Mood stable. Xanax available as needed. (4) Chronic GERD: Code(s): K21.9 - Gastro-esophageal reflux disease without esophagitis Status: Acute Assessment and Plan: Stable. Continue PPI. Subjective Date/time seen: 06/19/22 14:25 No new complaints Exam Narrative: AF 98.8 125/63 71 16 95% ra Gen - NARD Chest - CTA bilaterally, nml RR CV - RRR S1/S2 Abd - Soft, NT/ND, Positive BS Ext - No pedal edema Neuro - Dorsiflexion and plantar flexion normal. No ankle clonus. No hyperreflexia. Left hip flexor improved to 3/5 Psych - Nml mood and affect Skin - Warm and dry Objective Data Vital Signs Vital Signs: Vital Signs - 24 hr 06/18/22 21:12 06/18/22 20:00 06/19/22 05:50 Temperature 97.6 F 97.6 F Pulse Rate 90 90 69 Respiratory Rate 16 16 16 Blood Pressure 114/62 136/61 Pulse Oximetry 95 95 96 Oxygen Delivery Room Air 06/19/22 08:00 Temperature Pulse Rate Respiratory Rate Blood Pressure Pulse Oximetry Oxygen Delivery Room Air Intake/Output Intake/Output: Intake & Output 06/16/22 06/17/22 06/18/22 06/19/22 23:59 23:59 23:59 23:59 Intake Total 4486 705 9714 Output Total 1000 550 700 Balance 635 390 680 Meds/Results Medications: Active Medications Generic Name Dose Route Start Last Admin Trade Name Freq PRN Reason Stop Dose Admin Alprazolam 0.5 mg 06/17/22 00:16 06/19/22 10:22 Alprazolam (*Crx) 0.5 Mg Tablet PO 0.5 mg TID PRN Administration anxiety Azelastine HCl 1 spray 06/18/22 12:03 Azelastine Hcl Nasal 0.1% 137 Mcg/Spr 30 Ml Btl NASAL Q12HR PRN Nasal Congestion Fentanyl Citrate 25 mcg 06/17/22 00:23 Fentanyl Citrate Inj (*Crx) 100 Mcg/2 Ml Vial IV PUSH Q4H PRN Pain Rated 7-10 Fluticasone Propionate 1 spray 06/17/22 09:00 06/19/22 08:27 Fluticasone Propionate 0.05% Na Spr 16 Gm Btl (*Bkc) NASAL 1 spray BID ALBER Administration Mirabegron 25 mg 06/17/22 00:16 06/18/22 08:10 Mirabegron 25 Mg Er Tablet PO 25 mg DAILY PRN Administration urinary frequency Oxycodone/Acetaminophen 1 - 2 tablet 06/17/22 00:16 06/19/22 08:28 Oxycodone/Acetaminophen (*Crx) 5-325 Mg Tablet PO 1 tablet Q6H PRN Administration Pain Rated 4-6 Pantoprazole Sodium 40 mg 06/17/22 09:00 06/19/22 08:28 Pantoprazole 40 Mg Tablet PO 40 mg QAM ALBER Administration Polye
[2022-06-19 14:26] VITALS: BP 132/65; PULSE 99; RESP 18; TEMP 36.8; O2SAT 97
[2022-06-19 21:15] VITALS: BP 125/51; PULSE 75; RESP 17; TEMP 36.5; O2SAT 96
[2022-06-20 05:10] VITALS: BP 124/67; PULSE 77; RESP 17; TEMP 36.8; O2SAT 98
--- NOTE | 2022-06-20 08:05 | PCOTNOTE ---
Attempted to see patient this AM, patient requested to wait to do therapy until after receiving pain pill for her back. Encouraged patient to get OOB and move to reduce pain, patient continued to ask to hold off until after med for pain. Will continue OT plan of care.
[2022-06-20] MEDS: oxyCODONE/ACETAMINOPHEN (*CRX) 5-325 MG TABLET PO (08:12)
[2022-06-20 08:15] VITALS: O2SAT 98
[2022-06-20] MEDS: FLUTICASONE PROPIONATE 0.05% NA SPR 16 GM BTL (*BKC) 1 SPRAY NASAL (08:15)
[2022-06-20] MEDS: CHOLECALCIFEROL 1,000 UNITS TABLET 3000 UNITS PO (08:16)
[2022-06-20] MEDS: PANTOPRAZOLE 40 MG TABLET PO (08:16)
[2022-06-20] MEDS: polyethylene glycoL 3350 17 GM POWD.PACK PO (08:21)
--- NOTE | 2022-06-20 11:35 | PM.DS ---
DS: Admitting Diagnosis Discharge Date June 20, 2022 Admitting Diagnosis Back pain weakness DS: Discharge Diagnosis Discharge Diagnosis (1) Acute pain of left lower extremity: Code(s): M79.605 - Pain in left leg Status: Acute Assessment and Plan: Likely related to osteoarthritis. Continue pain medication and prednisone on discharge. Syringomyelia noted of the thoracic spine. This is likely not contributing to her pain. (2) Unable to ambulate: Code(s): R26.2 - Difficulty in walking, not elsewhere classified Status: Acute Assessment and Plan: As above. Continue PT and OT. (3) DONNIE (generalized anxiety disorder): Code(s): F41.1 - Generalized anxiety disorder Status: Acute Assessment and Plan: Mood stable. Xanax available as needed. (4) Chronic GERD: Code(s): K21.9 - Gastro-esophageal reflux disease without esophagitis Status: Acute Assessment and Plan: Stable. Continue PPI. DS: Summary Hospital Course Hospital Course: This 87-year-old female comes in with back pain and inability to walk. MRIs of her spine reveal osteoarthritis which is likely the cause of her pain and debility. She will be discharged to skilled facility for ongoing rehab. Patient be sent home on prednisone and continue pain medication. 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 She will need to follow up with neurologist as an outpatient. Patient reports she has done this before and she has had some imaging before several years ago. She is not interested in any type of surgery or anything like that. Nonetheless this could be managed by her primary care physician. Time Spent with Patient Time attestation: Total time spent providing and/or coordinating discharge services: Exam Narrative: AF 98.8 125/63 71 16 95% ra Gen - NARD Chest - CTA bilaterally, nml RR CV - RRR S1/S2 Abd - Soft, NT/ND, Positive BS Ext - No pedal edema Neuro - Dorsiflexion and plantar flexion normal. No ankle clonus. No hyperreflexia. Left hip flexor improved to 3/5 Psych - Nml mood and affect Skin - Warm and dry Discharge Plan Discharge Attending physician on discharge: Greg Thomas Consulting providers: Kaylee Shepherd ; Andres Rangel Discharging Clinician: Greg Thomas Patient Disposition: SNF Activity: no preference Diet: as tolerated Patient Instructions: Antibiotic Form Stand Alone Forms: General Discharge Information Discharge Medications: New prednisone 10 mg tablet 10 mg PO DAILY Qty: 7 0RF Continued pantoprazole 40 mg tablet,delayed release (DR/EC) 40 mg PO QAM Probiotic Colon Care 1.5 billion cell capsule 1 cap PO DAILY cholecalciferol (vitamin D3) 75 mcg (3,000 unit) tablet 75 mcg PO DAILY fluticasone propionate 50 mcg/actuation spray,suspension 1 spray intranasal BID Qty: 30 3RF Rx Instructions: administer into each nostril oxycodone-acetaminophen [Percocet] 5-325 mg tablet 1 - 2 tablet PO Q6H MDD 8 tablets PRN (Reason: pain) alprazolam [Xanax] 0.5 mg tablet 0.5 mg PO TID PRN (Reason: anxiety) lactulose 10 gram/15 mL solution 10 g PO DAILY PRN (Reason: constipation) Qty: 473 0RF Myrbetriq 25 mg tablet extended release 24 hr 25 mg PO PRN PRN (Reason: urinary frequency) Qty: 30 2RF Allergy Relief-D (loratadine) 5-120 mg tablet extended release 12 hr 1 tablet PO DAILY PRN (Reason: sinus symptoms) Qty: 30 0RF azelastine 137 mcg (0.1 %) aerosol,spray See Rx Instructions .ROUTE .COMPLEX Qty: 30 0RF Dose Instruction: INHALE 1 PUFFS INTO EACH NOSTRIL EVERY 12 HOURS Rx Instructions: INHALE 1 PUFFS INTO EACH NOSTRIL EVERY 12 HOURS Discontinued methylprednisolone [Methylpred DP] 4 mg tablets,dose pack 4 mg PO PER PKG DIR Rx Instructions: ON DAY 4 Date of admissi
--- NOTE | 2022-06-20 12:10 | WPDNEURCNPN ---
Assessment and Plan Assessment and plan (1) Acute pain of left lower extremity: Code(s): M79.605 - Pain in left leg Status: Acute (2) Unable to ambulate: Code(s): R26.2 - Difficulty in walking, not elsewhere classified Status: Acute (3) Chronic pain disorder: Code(s): G89.4 - Chronic pain syndrome Status: Acute (4) Syringomyelia: Code(s): G95.0 - Syringomyelia and syringobulbia Status: Acute Plan 1. Chronic pain for which patient is under the treatment at [facility], but syringomyelia from T7 through T11 3x2mm in maximal trance Hudson dimensions without any enhancement or any other cord lesion 3. 15? thoracic dextroscoliosis with severe spondylosis 4. Chronic pain related to underlying arthritic condition as well as the underlying syringomyelia Consult date: 06/20/22 HPI: Fatmata Napier is a 87 year old female admitted to the hospital through the emergency room for the complaints of left lower extremity pain of 5 days duration aggravated by ambulation with relief from sitting or laying down in bed . she gave no history of associated numbness patient has been followed at [facility] for the chronic pain and has been receiving the pain relieving medication through the clinic, does have a history of lymphoma in the past and chronic pain disorder has undergone hip replacement and knee replacement in addition to auris of the right humerus, she is a former smoker 10 packs year years smoked 20 and former alcohol intake initial examination in the emergency room documented decreased range of motion of the left lower extremity due to the pain inability to lift the left lower extremity of the bed with minimal calf tenderness no edema and no midline spinal tenderness vital signs were stable initial CT scan of the head in the emergency room was negative she was notably stiff in her lower extremities even after receiving the pain medications and was unable ambulate which resulted in the admission routine labs were normal venous Doppler study of left lower extremity was negative was no acute fracture on lumbar spine x-rays and a CT scan of the head was stable except the changes compatible with chronic small vessel ischemic disease since admission she has been gradually improving pain medications are prednisone therapy was continued as mentioned before, lumbar spine MR regular lumbar levoscoliosis with some signal change at the level of T8 and T9 raising the possibility of syringomyelia and thoracic spine MRI documented central increased fluid signal intensity in the lower thoracic cord extending from T7 T8 through T11 measuring up to 3x2mm in maximal dimension that is compatible with single hydromyelia in addition to underlying 15? thoracic deck stroke scoliosis and severe spondylosis Review of Systems Review of Systems: All systems reviewed & are unremarkable except as noted in HPI and below PMFSH Past Medical History Medical History (Updated 06/20/22 @ 12:20 by Andres Rangel MD) Benzodiazepine dependence Bone spur of left foot Breast cancer PAULA (cerebral atherosclerosis) Chronic GERD Chronic pain disorder DONNIE (generalized anxiety disorder) History of recurrent UTI (urinary tract infection) HTN (hypertension) Knee pain Lymphoma Opioid dependence Opioid use disorder Surgical History Surgical History H/O bilateral cataract extraction H/O breast reconstruction H/O hysterectomy with unilateral oophorectomy H/O: hysterectomy History of hip replacement History of knee replacement right History of lumpectomy History of lumpectomy of left breast History of open reduction and internal fixation (ORIF) procedure (~03/06/20) Rt Proximal Humerus Family History Family History Other Carcinoma of colon Diabetes mellitus Family history of lung cancer Social History Social His
[2022-06-20 13:16] LABS: EDCOVIDSCREEN Negative (Negative)
[2022-06-20] MEDS: ALPRAZolam (*CRX) 0.5 MG TABLET PO (13:59)
== END 2022-06-20 15:10 ==
LOC: ANHED 16:55 → ANH2MED 06-17 08:33 → ANH3MEDSUR 06-22 08:52
PROVIDERS: Nurse Practitioner; Physician Assistant; Admitting Provider Internal Medicine; Emergency Provider Emergency Medicine; PCP Family Medicine; Visit Provider Chiropractor
DX: M79.662 Pain in left lower leg (principal); R26.2 Difficulty in walking, not elsewhere classified; G89.4 Chronic pain syndrome; I10 Essential (primary) hypertension; G95.0 Syringomyelia and syringobulbia; K21.9 Gastro-esophageal reflux disease without esophagitis; F41.1 Generalized anxiety disorder; I70.0 Atherosclerosis of aorta; M47.816 Spondylosis without myelopathy or radiculopathy, lumbar region; M41.35 Thoracogenic scoliosis, thoracolumbar region; R90.82 White matter disease, unspecified; Z20.822 Contact with and (suspected) exposure to COVID-19; Z85.3 Personal history of malignant neoplasm of breast; Z96.649 Presence of unspecified artificial hip joint; Z96.651 Presence of right artificial knee joint; Z87.891 Personal history of nicotine dependence; Z79.891 Long term (current) use of opiate analgesic; Z79.899 Other long term (current) drug therapy
CPT/HCPCS: 36415; 70450; 72110; 72156; 72157; 72158; 73564; 80053; 82607; 82746; 83615; 83735; 84443; 85025; 87426; 87637; 93971; 97110; 97161; 97165; 97530; 97535; 99285; A9270; A9577; C9803; G0378; J3010

== ENCOUNTER 2022-06-26 17:18 | Inpatient (IN) | payer MEDICARE, SELFPAY ==
--- NOTE | ~2022-06-26 | CT_ITS ---
EXAMINATION: CT pelvis wo con DATE: 06/26/2022 23:52 INDICATION: Left hip and pelvic pain. TECHNIQUE: Computed tomography (CT) of the pelvis was performed without intravenous contrast. Automat ed exposure control and iterative reconstruction technique were employed. The dose-length product was 719.32 mGy-cm. COMPARISON: None FINDINGS: There are no dilated loops of bowel. There are no pathologically enlarged lymph nodes. Ther e is no free intraperitoneal fluid. There is a total right hip arthroplasty in near-anatomic alignmen t. No periprosthetic lucency to suggest loosening or infection. There is a subcapital fracture of lef t femoral neck. The distal fracture fragment demonstrates 17 degrees posterior angulation, 27 degrees varus angulation, and impaction. There is moderate left hip osteoarthritis. There is severe lumbar s pondylosis. IMPRESSION: 1. Subcapital fracture of left femoral neck. 2. Moderate left hip osteoporosis. 3. Total right hip arthroplasty in near-anatomic alignment. Reviewed, dictated and finalized at location A. COLLECTION COORDINATOR
--- NOTE | ~2022-06-26 | XR_ITS ---
EXAM: XR hip LT 2V w AP pelvis DATE: 06/27/2022 14:47 HISTORY: left hip fracture . COMPARISON: 04/02/2018, CT pelvis 06/26/2022. FINDINGS: Uncomplicated right hip arthroplasty. Decreased mineralization. Redemonstration of the sub capital left femoral neck fracture, with slightly increased degree of superior displacement and media l angulation. No lytic or blastic lesion. Degenerative change in the lumbar spine. Moderate left hip osteoarthritis. No erosion or periosteal change. Soft tissues within normal limits. IMPRESSION: Slightly increased superior displacement and medial angulation of the left subcapital fem oral neck fracture. Reviewed, dictated and finalized at location K. R AND INSPECTOR IMPRESSION: Slightly increased superior displacement and medial angulation of t he left subcapital femoral neck fracture.
--- NOTE | ~2022-06-26 | XR_ITS ---
Left Hip Technique: AP and lateral views Clinical History: Status post hip arthroplasty Findings: Patient is status post left hip arthroplasty. Orthopedic hardware alignment appears anatomi c. No hardware complication is evident. Subcutaneous emphysema and swelling is likely postoperative in nature. No acute osseous fracture is seen. Impression: Status post total left hip arthroplasty, without evidence of hardware complication. Reviewed, dictated and finalized at location . E EXAMINER Impression: Status post total left hip arthroplasty, without evidence of hardware complicat ion.
--- NOTE | ~2022-06-26 | XR_ITS ---
EXAMINATION: XR hip LT 2V w AP pelvis DATE: 07/04/2022 09:32 INDICATION: Total hip arthroplasties presenting with severe left hip pain. TECHNIQUE: Anteroposterior view of the pelvis and anteroposterior and cross-table lateral views of th e left hip were obtained. COMPARISON: 06/29/2022 and 06/27/2022 FINDINGS: Bilateral total hip arthroplasties which remain in near anatomic alignment with no evident dislocatio n or fracture. Mild to moderate bilateral sacroiliac osteoarthritis. Severe lumbar spondylosis. IMPRESSION: 1. Expected appearance of bilateral total hip arthroplasties which remain in near anatomic alignment with no acute osseous abnormality. Reviewed, dictated and finalized at location A. GEMENT AIDE IMPRESSION: 1. Expected appearance of bilateral total hip arthroplasties which remain in ne ar anatomic alignment with no acute osseous abnormality.
[2022-06-26 18:18] VITALS: BP 136/83; PULSE 99; RESP 18; TEMP 36.8; O2SAT 97
--- NOTE | 2022-06-26 23:00 | ED.GENADULT ---
HPI - General Adult General Chief complaint: Extremity Problem,Nontraumatic Stated complaint: left hip/graoin pain Time Seen by Provider: 06/26/22 22:53 Source: RN notes reviewed History of Present Illness HPI narrative: Patient presents emergency department from home for left hip pain. Patient states that she has been having severe pain in her left hip and groin for the past 2 days. She denies any trauma or injury states that she is unable to walk she has taken a total of 4 Percocets today with no change in her pain. Patient was recently admitted to the hospital for pain in the left leg secondary to being unable to walk last week and had just been discharged on Monday the . Patient that she had been doing better and went to rehab but now is back to the point where she cannot ambulate she has any fevers or chills she denies any abdominal pain nausea or vomiting she denies any numbness or weakness of the extremities or any other symptoms she denies falling Related Data Home Medications Medication Instructions Recorded Confirmed Lactobacills gasseri-Bifidobac 1 cap PO DAILY 08/21/20 06/16/22 bifidum,longum 1.5 billion cell capsule (Probiotic Colon Care) cholecalciferol (vitamin D3) 75 75 mcg PO DAILY 08/21/20 06/16/22 mcg (3,000 unit) tablet pantoprazole 40 mg tablet,delayed 40 mg PO QAM 08/21/20 06/16/22 release alprazolam 0.5 mg tablet (Xanax) 0.5 mg PO TID PRN anxiety 06/16/22 06/16/22 oxycodone-acetaminophen 5 mg-325 1 - 2 tablet PO Q6H PRN pain 06/16/22 06/16/22 mg tablet (Percocet) Allergies Allergy/AdvReac Type Severity Reaction Status Date / Time benzonatate Allergy Unknown Unknown Verified 06/16/22 22:16 ciprofloxacin Allergy Unknown Joint Pain Verified 06/16/22 22:16 diclofenac Allergy Unknown Confusion Verified 06/16/22 22:16 NSAIDS (Non-Steroidal Allergy Unknown Gastrointestinal Verified 06/16/22 22:16 Anti-Inflamma Upset/BLEEDING Review of Systems Review of Systems: Gen.: Denies fevers or chills ENT: Denies congestion Respiratory: Denies shortness of breath CV: Denies chest pain GI: Denies abdominal pain nausea, emesis or diarrhea denies burning, urgency, frequency or hematuria Musculoskeletal: See HPI Neuro: Denies numbness, tingling, weakness or focal weakness Skin: Denies rash Except as documented, all other systems reviewed and negative [facility] Past Medical History Medical History Benzodiazepine dependence Bone spur of left foot Breast cancer PAULA (cerebral atherosclerosis) Chronic GERD Chronic pain disorder DONNIE (generalized anxiety disorder) History of recurrent UTI (urinary tract infection) HTN (hypertension) Knee pain Lymphoma Opioid dependence Opioid use disorder Surgical History Surgical History H/O bilateral cataract extraction H/O breast reconstruction H/O hysterectomy with unilateral oophorectomy H/O: hysterectomy History of hip replacement History of knee replacement right History of lumpectomy History of lumpectomy of left breast History of open reduction and internal fixation (ORIF) procedure (~03/06/20) Rt Proximal Humerus Family History Family History Other Carcinoma of colon Diabetes mellitus Family history of lung cancer Social History Social History Social History: The patient is . She is a retired [employer]. 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 Her friend laureen hammonds is her durable power personal injury attorney for healthcare. The patient is a former smoker. She denies any alcohol marijuana or illicit drugs. Code status full code Smoking packs per day: 0.5 Smoking cigarettes per day: 10.0 Years smoked: 20 Smoking pack-years: 10.00 Smoking status: Former smoker Tobacco type: cigarettes Second hand tobacco smoke exposu
--- NOTE | 2022-06-27 00:41 | PC.NURSE ---
Multiple attempts by this automotive glass technician and RN unsuccessful for lab draw. Phlebotomy called
[2022-06-27] MEDS: MORPHINE SULFATE (*CRX) 2 MG/ML INJ IV PUSH ×5 (01:20→23:02)
[2022-06-27 01:45] LABS: Influenza A QL RT-PCR Negative (Negative); Influenza B QL RT-PCR Negative (Negative); SARS-CoV-2 RNA PCR Negative
[2022-06-27] MEDS: SODIUM CHLORIDE 0.9% IV 1,000 ML 999 ML IV CONT (02:16)
[2022-06-27 02:28] LABS: Add Urine Microscopic? NO; Appearance Urine Clear (Clear); Bilirubin Urine Negative (Negative); Blood Urine Negative (Negative); Color Urine Yellow (Yellow); Glucose Urine UA Negative (Negative); Ketones Urine Negative (Negative); Leukocyte Esterase Ur Negative LEU/UL (Negative); Nitrate Urine Negative (Negative); Protein Urine Negative (Negative); Specific Grav Ur 1.015 (1.001-1.035); Urobilinogen Urine 0.2 mg/dL (<2.0); pH Urine 6.5 (5.0-9.0)
[2022-06-27 02:34] LABS: Bacteria Urine Trace /hpf; RBC Urine 0-2 /hpf (0-2); WBC Urine 0-3 /hpf
[2022-06-27 04:46] VITALS: BMI 61.7
[2022-06-27 04:54] VITALS: BP 176/72; PULSE 81; RESP 18; TEMP 36.2; O2SAT 97
[2022-06-27] MEDS: SODIUM CHLORIDE 0.9% IV 1,000 ML 100 ML IV CONT (05:08)
[2022-06-27] MEDS: ALPRAZolam (*CRX) 0.5 MG TABLET PO ×2 (05:15→23:02)
--- NOTE | 2022-06-27 05:48 | PM.IMHP ---
H&P: HPI History of Present Illness Date/Time: 06/27/22 05:48 Chief Complaint: Left hip pain Narrative: Patient is 87-year-old female with past medical history of breast cancer, generalized anxiety disorder, GERD, essential hypertension, history of lymphoma who presents ED with left hip pain. Of note patient was recently hospitalized from 06/16/2022- 06/20/22 with similar complaints. At that time imaging was negative for fracture and patient was told she had pain likely secondary to osteoarthritis and was given prednisone and pain meds on discharge. Of so patient was found to have syringomyelia on thoracic spine which was thought to be unrelated. she work with PT and OT. She did with home med now presents from home with worsening left hip pain for last 2 days. She has been taking Percocet for pain control which appears not to be helping anymore. In the ED: CT pelvis shows signs of left femoral neck fracture. orthopedics Dr. Akins was consulted. patient to be admitted for acute left femoral neck fracture. Review of Systems Review of Systems: Constitutional: No Fever, No Chills, No Night Sweats, No Fatigue, No Malaise ENT/Mouth: No Hearing Changes, No Ear Pain, No Nasal Congestion, No Sinus Pain, No Hoarseness, No sore throat, No Rhinorrhea, No Swallowing Difficulty Eyes: No Eye Pain, No Redness, No Vision Changes Cardiovascular: No Chest Pain, No Palpitations, No Dyspnea on Exertion, No Orthopnea, No Claudication, No Edema Respiratory: No Cough, No Sputum, No Wheezing, No Shortness of Breath Gastrointestinal: No Nausea, No Vomiting, No Diarrhea, No Constipation, No Abdominal Pain, No Heartburn, No Hematochezia, No Melena Genitourinary: No Dysuria, No Urinary Frequency, No Hematuria, No Urinary Incontinence, No Urgency Musculoskeletal: left hip pain Skin: No Skin Lesions, No Pruritis, No Hair Changes Neuro: No Weakness, No Numbness, No Paresthesias, No Loss of Consciousness, No Syncope, No Dizziness, No Headache Psych: No Anxiety/Panic, No Depression, No Insomnia Heme: No Bruising, No Bleeding Lymph: No Adenopathy Endocrine: No Polyuria, No Polydipsia, No Temperature Intolerance PMFSH Past Medical History Medical History Benzodiazepine dependence Bone spur of left foot Breast cancer PAULA (cerebral atherosclerosis) Chronic GERD Chronic pain disorder DONNIE (generalized anxiety disorder) History of recurrent UTI (urinary tract infection) HTN (hypertension) Knee pain Lymphoma Opioid dependence Opioid use disorder Surgical History Surgical History H/O bilateral cataract extraction H/O breast reconstruction H/O hysterectomy with unilateral oophorectomy H/O: hysterectomy History of hip replacement History of knee replacement right History of lumpectomy History of lumpectomy of left breast History of open reduction and internal fixation (ORIF) procedure (~03/06/20) Rt Proximal Humerus Family History Family History Other Carcinoma of colon Diabetes mellitus Family history of lung cancer Social History Social History Social History: The patient is . She is a retired [employer]. 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 Her friend laureen hammonds is her durable power attorney recruiter for healthcare. The patient is a former smoker. She denies any alcohol marijuana or illicit drugs. Code status full code Smoking packs per day: 0.5 Smoking cigarettes per day: 10.0 Years smoked: 20 Smoking pack-years: 10.00 Smoking status: Former smoker Tobacco type: cigarettes Second hand tobacco smoke exposure: No Smoking end date: 06/26/94 Alcohol intake: never Substance use: never Substance use type: does not use Lack of Transportation: No Lack of Food: Never True Curr
[2022-06-27 06:01] LABS: Basophils Percent Auto 0.4 % (0.2-1.2); Eosinophils Absolute Auto 0.1 K/mm3 (0-0.3); Eosinophils Percent Auto 0.6 % (0-4.4); Hematocrit 46.2 % (37.0-47.0); Hemoglobin 15.1 g/dL (12.0-15.0); Immature Granulocyte Absolute 0.03 K/mm3 (0.00-0.031); Immature Granulocyte Percent A 0.3 % (0-0.5); Immature Platelet Fraction Pct 2.3 % (0.9-11.2); Lymphocytes Absolute Auto 1.11 K/mm3 (0.9-3.2); Lymphocytes Percent Auto 11.6 % (18.3-44.2); Mean Corpuscular HGB Conc 32.7 g/dl (32-36); Mean Corpuscular Hemoglobin 33.6 pg (26-34); Mean Corpuscular Volume 102.9 fl (80-100); Monocytes Absolute Auto 0.7 K/mm3 (0.1-0.6); Monocytes Percent Auto 7.3 % (2.6-8.5); Neutrophils Absolute Auto 7.6 K/mm3 (1.3-6.7); Neutrophils Percent Auto 79.8 % (45.5-73.1); Platelet Count Result 194 k/mm3 (150-375); Red Blood Count 4.49 M/mm3 (4.2-5.4); Red Cell Distribution Width 12.8 % (11.5-14.5); White Blood Count 9.6 K/mm3 (4.5-10.0)
[2022-06-27 06:15] LABS: Prothrombin Time 12.6 Seconds (11.1-14.7)
[2022-06-27 06:16] LABS: Partial Thromboplastin Time 29.2 SECONDS (22.3-36.8)
[2022-06-27 06:30] LABS: Anion Gap 10 mmol/L (8-16); Blood Urea Nitrogen 17 mg/dL (7-17); Calcium 9.2 mg/dL (8.4-10.2); Carbon Dioxide 24 mmol/L (22-30); Chloride 106 mmol/L (98-107); Estimated CRCL calculation 92 ml/min; Estimated Glomerular Filt Rate > 60; Glucose 95 mg/dL (65-110); Potassium 3.8 mmol/L (3.4-5.0); Sodium 140 mmol/L (137-145)
[2022-06-27] MEDS: FLUTICASONE PROPIONATE 0.05% NA SPR 16 GM BTL (*BKC) 1 SPRAY NASAL ×2 (08:46→17:14)
[2022-06-27] MEDS: CHOLECALCIFEROL 1,000 UNITS TABLET 3000 UNITS PO (08:46)
[2022-06-27 10:36] VITALS: BP 138/60; PULSE 82; RESP 16; TEMP 36.1; O2SAT 93
[2022-06-27] MEDS: HEPARIN SODIUM 5,000 UNITS/ML VIAL 5000 UNITS SUB-Q ×2 (12:11→20:03)
--- NOTE | 2022-06-27 12:26 | PM.IMPN ---
Progress Note: A&P Assessment and Plan (1) Closed fracture of neck of left femur: Code(s): S72.002A - Fracture of unspecified part of neck of left femur, initial encounter for closed fracture Status: Acute Plan # left femoral neck fracture - likely underlying osteoporosis. patient was complaining of left hip pain during recent hospitalization, at that time imaging was negative for fracture. perhaps patient was developing this fracture and had an area that was prone to injury. she was treated with steroids and pain control - orthopedics Dr. Akins consulted - pain control: Tylenol, [place], morphine - try to obtain labs, very difficult stick, may need ultrasound-guided IV - while NPO continue IV fluids normal saline 100 cc/hour # other chronic conditions - constipation: At home use lactulose p.r.n. - likely osteoporosis: Continue home vitamin-D supplement - allergies: Continue fluticasone, loratadine - anxiety: Continue home Xanax Diet: NPO for surgery DVT prophylaxis: Will start postop Code status: Do not resuscitate Disposition: Pending clinical course likely surgery then rehab afterwards Subjective Date/time seen: 06/27/22 12:26 No complaints Exam Narrative: - GENERAL: pleasant older woman in no acute distress. Well-nourished. - EYES: EOMI. Anicteric. - HENT: Moist mucous membranes. - LUNGS: Clear to auscultation bilaterally, no wheezing, rhonchi, or rales. - CARDIOVASCULAR: Regular rate and rhythm. No murmur. No JVD. - ABDOMEN: Soft, non-tender and non-distended. No palpable masses. - EXTREMITIES: No edema. Peripheral pulses 2+. Non-tender. left lower extremity internally rotated, tender on any manipulation - NEUROLOGIC: No focal neurological deficits. CN II-XII grossly intact. - PSYCHIATRIC: Awake, Alert and oriented x 3. intelligent, Appropriate mood and affect. - SKIN: No rashes or lesions. Warm. - LYMPH: No cervical lymphadenopathy. Objective Data Vital Signs Vital Signs: Vital Signs - 24 hr 06/26/22 18:18 06/27/22 04:23 06/27/22 04:54 Temperature 98.2 F 97.2 F L Pulse Rate 99 81 Respiratory Rate 18 18 Blood Pressure 136/83 176/72 H Pulse Oximetry 97 97 Oxygen Delivery Room Air Room Air 06/27/22 10:36 Temperature 97.0 F L Pulse Rate 82 Respiratory Rate 16 Blood Pressure 138/60 Pulse Oximetry 93 Oxygen Delivery Intake/Output Intake/Output: Intake & Output 06/24/22 06/25/22 06/26/22 06/27/22 23:59 23:59 23:59 23:59 Intake Total 1100 Output Total 450 Balance 650 Meds/Results Medications: Active Medications Generic Name Dose Route Start Last Admin Trade Name Freq PRN Reason Stop Dose Admin Acetaminophen 650 mg 06/27/22 05:00 Acetaminophen 325 Mg Tablet PO Q4H PRN Mild Pain (1-3) or Fever Hydrocodone Bitart/Acetaminophen 1 tab 06/27/22 05:00 Hydrocodone/Acetaminophen (*Crx) 5-325 Mg Tablet PO Q4H PRN Moderate Pain (4-6) Al Hydrox/Mg Hydrox/Simethicone 30 ml 06/27/22 05:00 Mag Hydrox/Al Hydrox/Simeth 30 Ml Udc PO QID PRN Dyspepsia Alprazolam 0.5 mg 06/27/22 04:59 06/27/22 05:15 Alprazolam (*Crx) 0.5 Mg Tablet PO 0.5 mg TID PRN Administration anxiety Azelastine HCl 1 spray 06/27/22 21:00 Azelastine Hcl Nasal 0.1% 137 Mcg/Spr 30 Ml Btl NASAL HS ALBER Bisacodyl 5 mg 06/27/22 05:00 Bisacodyl 5 Mg Tablet Ec PO DAILY PRN Constipation Fluticasone Propionate 1 spray 06/27/22 09:00 06/27/22 08:46 Fluticasone Propionate 0.05% Na Spr 16 Gm Btl (*Bkc) NASAL 1 spray BID ALBER Administration Heparin Sodium (Porcine) 5,000 units 06/27/22 09:00 06/27/22 12:11 Heparin Sodium 5,000 Units/Ml Vial SUB-Q 5,000 units Q12HR ALBER Administration Sodium Chloride 1,000 mls @ 100 mls/hr 06/27/22 02:10 06/27/22 05:08 Normal Saline Iv IV CONT 100 mls/hr .Q10H ALBER Administration Lactulose 10 gm 06/27/22 05:08 Lactulose 20 Gm/30 Ml Udc PO
--- NOTE | 2022-06-27 13:04 | PM.CNOR ---
Assessment and Plan Assessment and plan (1) Closed fracture of neck of left femur: Code(s): S72.002A - Fracture of unspecified part of neck of left femur, initial encounter for closed fracture Status: Acute Assessment and Plan: Left subcapital femoral neck fracture. No fall. Patient had been having leg pain for weeks and was discharged from the hospital June 20 to rehab. Patient states she was doing better and yesterday 06/26/21 she was ambulating just fine and putting away her Randall decorations. That evening after sitting in a recliner, she states she could not get up or walk. Patient does take chronic narcotic pain medications. CT scan reviewed and reviewed left subcapital femoral neck fracture. Moderate left hip osteoarthritis. Xray ordered. Will consult with Dr. Akins tomorrow regarding definitive plan. Likely surgical intervention with Bipolar hemiarthroplasty vs total hip arthroplasty. Patient may have Oxycodone for pain control. Discussed plan with patient. She shows good understanding. History of Present Illness HPI Consult date: 06/27/22 Chief complaint: Left Femoral Neck Fracture Narrative: Patient was admitted through the emergency room for definitive treatment for left subcapital femoral neck fracture. Patient states yesterday 06/26/21 she was able to walk around just fine. In the evening, was unable to get up and walk after sitting in a recliner. She states she did not fall. Notes she has had pain that she thought was knee pain for the last few weeks. Patient was recently admitted to the hospital for pain in the left leg secondary to being unable to walk last week and had just been discharged on MondayJune 20.?Today she notes pain in the left hip that is tolerable and rest. Patient does take chronic pain medications. History of proximal humerus fracture in [address] Akins. History of Total hip arthroplasty on the right. Review of Systems Review of Systems: All systems reviewed & are unremarkable except as noted in HPI and below PMFSH Past Medical History Medical History Benzodiazepine dependence Bone spur of left foot Breast cancer PAULA (cerebral atherosclerosis) Chronic GERD Chronic pain disorder DONNIE (generalized anxiety disorder) History of recurrent UTI (urinary tract infection) HTN (hypertension) Knee pain Lymphoma Opioid dependence Opioid use disorder Surgical History Surgical History H/O bilateral cataract extraction H/O breast reconstruction H/O hysterectomy with unilateral oophorectomy H/O: hysterectomy History of hip replacement History of knee replacement right History of lumpectomy History of lumpectomy of left breast History of open reduction and internal fixation (ORIF) procedure (~03/06/20) Rt Proximal Humerus Family History Family History Other Carcinoma of colon Diabetes mellitus Family history of lung cancer Social History Social History Social History: The patient is . 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 Her friend laureen hammonds is her durable power director of exhibit development for healthcare. The patient is a former smoker. She denies any alcohol marijuana or illicit drugs. Code status full code Smoking packs per day: 0.5 Smoking cigarettes per day: 10.0 Years smoked: 20 Smoking pack-years: 10.00 Smoking status: Former smoker Tobacco type: cigarettes Second hand tobacco smoke exposure: No Smoking end date: 06/26/94 Alcohol intake: never Substance use: never Substance use type: does not use Lack of Transportation: No Lack of Food: Never True Current Housing: I Have Housing Concerned About Future Housing: No Difficulty Paying Gas/Electric Bills: No Difficulty
[2022-06-27] MEDS: oxyCODONE HCL (*CRX) 5 MG TAB IR 10 MG PO (14:17)
[2022-06-27] MEDS: ACETAMINOPHEN 500 MG TABLET 1000 MG PO ×3 (14:17→23:01)
[2022-06-27] MEDS: AZELASTINE HCL NASAL 0.1% 137 MCG/SPR 30 ML BTL 1 SPRAY NASAL (20:04)
[2022-06-27 21:52] VITALS: BP 135/76; PULSE 75; RESP 14; TEMP 36.1; O2SAT 93
[2022-06-28 05:52] VITALS: BP 139/63; PULSE 66; RESP 14; TEMP 36.3; O2SAT 95
[2022-06-28] MEDS: ACETAMINOPHEN 500 MG TABLET 1000 MG PO ×4 (06:06→23:03)
[2022-06-28 07:18] LABS: Alanine Aminotransferase 22 U/L (6-35); Albumin Level 3.4 g/dL (3.5-5.1); Alkaline Phosphatase 102 U/L (38-126); Anion Gap 5 mmol/L (8-16); Aspartate Amino Transferase 25 U/L (14-36); Bilirubin,Total 0.7 mg/dL (0.2-1.3); Blood Urea Nitrogen 14 mg/dL (7-17); Calcium 8.8 mg/dL (8.4-10.2); Carbon Dioxide 26 mmol/L (22-30); Chloride 103 mmol/L (98-107); Estimated CRCL calculation 60 ml/min; Estimated Glomerular Filt Rate > 60; Glucose 85 mg/dL (65-110); Potassium 3.8 mmol/L (3.4-5.0); Sodium 134 mmol/L (137-145)
[2022-06-28 07:25] LABS: Basophils Absolute Auto 0.1 K/mm3 (0.0-0.1); Basophils Percent Auto 1.2 % (0.2-1.2); Eosinophils Absolute Auto 0.1 K/mm3 (0-0.3); Eosinophils Percent Auto 2.6 % (0-4.4); Hemoglobin 12.7 g/dL (12.0-15.0); Immature Granulocyte Absolute 0.01 K/mm3 (0.00-0.031); Immature Granulocyte Percent A 0.2 % (0-0.5); Lymphocytes Absolute Auto 1.09 K/mm3 (0.9-3.2); Mean Corpuscular HGB Conc 32.6 g/dl (32-36); Mean Corpuscular Hemoglobin 33.2 pg (26-34); Mean Corpuscular Volume 101.8 fl (80-100); Mean Platelet Volume 8.9 fl (7.4-10.4); Monocytes Absolute Auto 0.5 K/mm3 (0.1-0.6); Monocytes Percent Auto 9.9 % (2.6-8.5); Neutrophils Absolute Auto 3.2 K/mm3 (1.3-6.7); Neutrophils Percent Auto 64.1 % (45.5-73.1); Platelet Count Result 207 k/mm3 (150-375); Red Blood Count 3.83 M/mm3 (4.2-5.4); Red Cell Distribution Width 12.8 % (11.5-14.5)
[2022-06-28] MEDS: oxyCODONE HCL (*CRX) 5 MG TAB IR 10 MG PO ×3 (08:57→17:03)
[2022-06-28] MEDS: CHOLECALCIFEROL 1,000 UNITS TABLET 3000 UNITS PO (08:58)
[2022-06-28] MEDS: HEPARIN SODIUM 5,000 UNITS/ML VIAL 5000 UNITS SUB-Q ×2 (08:58→20:20)
[2022-06-28] MEDS: FLUTICASONE PROPIONATE 0.05% NA SPR 16 GM BTL (*BKC) 1 SPRAY NASAL (08:58)
--- NOTE | 2022-06-28 12:26 | PM.IMPN ---
Progress Note: A&P Assessment and Plan (1) Closed fracture of neck of left femur: Code(s): S72.002A - Fracture of unspecified part of neck of left femur, initial encounter for closed fracture Status: Acute Plan # left femoral neck fracture - likely underlying osteoporosis. patient was complaining of left hip pain during recent hospitalization, at that time imaging was negative for fracture. perhaps patient was developing this fracture and had an area that was prone to injury. she was treated with steroids and pain control - orthopedics Dr. Akins consulted - pain control: Tylenol, [place], morphine - try to obtain labs, very difficult stick, may need ultrasound-guided IV - while NPO continue IV fluids normal saline 100 cc/hour # other chronic conditions - constipation: At home use lactulose p.r.n. - likely osteoporosis: Continue home vitamin-D supplement - allergies: Continue fluticasone, loratadine - anxiety: Continue home Xanax Diet: NPO for surgery DVT prophylaxis: Will start postop Code status: Do not resuscitate Disposition: Pending clinical course likely surgery then rehab afterwards Subjective Date/time seen: 06/28/22 12:26 Pain under control. No new complaints Exam Narrative: - GENERAL: pleasant older woman in no acute distress. Well-nourished. - EYES: EOMI. Anicteric. - HENT: Moist mucous membranes. - LUNGS: Clear to auscultation bilaterally, no wheezing, rhonchi, or rales. - CARDIOVASCULAR: Regular rate and rhythm. No murmur. No JVD. - ABDOMEN: Soft, non-tender and non-distended. No palpable masses. - EXTREMITIES: No edema. Peripheral pulses 2+. Non-tender. left lower extremity internally rotated, tender on any manipulation - NEUROLOGIC: No focal neurological deficits. CN II-XII grossly intact. - PSYCHIATRIC: Awake, Alert and oriented x 3. intelligent, Appropriate mood and affect. - SKIN: No rashes or lesions. Warm. - LYMPH: No cervical lymphadenopathy. Objective Data Vital Signs Vital Signs: Vital Signs - 24 hr 06/27/22 21:52 06/27/22 20:00 06/28/22 05:52 Temperature 97.0 F L 97.3 F L Pulse Rate 75 66 Respiratory Rate 14 14 Blood Pressure 135/76 139/63 Pulse Oximetry 93 95 Oxygen Delivery Room Air Intake/Output Intake/Output: Intake & Output 06/25/22 06/26/22 06/27/22 06/28/22 23:59 23:59 23:59 23:59 Intake Total 2790 740 Output Total 1350 900 Balance 1440 -160 Meds/Results Medications: Active Medications Generic Name Dose Route Start Last Admin Trade Name Freq PRN Reason Stop Dose Admin Acetaminophen 1,000 mg 06/27/22 14:05 06/28/22 06:06 Acetaminophen 500 Mg Tablet PO 1,000 mg Q6HR ALBER Administration Al Hydrox/Mg Hydrox/Simethicone 30 ml 06/27/22 05:00 Mag Hydrox/Al Hydrox/Simeth 30 Ml Udc PO QID PRN Dyspepsia Alprazolam 0.5 mg 06/27/22 04:59 06/27/22 23:02 Alprazolam (*Crx) 0.5 Mg Tablet PO 0.5 mg TID PRN Administration anxiety Azelastine HCl 1 spray 06/27/22 21:00 06/27/22 20:04 Azelastine Hcl Nasal 0.1% 137 Mcg/Spr 30 Ml Btl NASAL 1 spray HS ALBER Administration Bisacodyl 5 mg 06/27/22 05:00 Bisacodyl 5 Mg Tablet Ec PO DAILY PRN Constipation Sodium Chloride 38.7 ml/ 0 ml 06/29/22 06:00 Morphine Sulfate 2 mg/ INFILTRATE 06/29/22 06:01 Ropivacaine 200 mg/ ONCE ONE Epinephrine HCl 0.3 mg Fluticasone Propionate 1 spray 06/27/22 09:00 06/28/22 08:58 Fluticasone Propionate 0.05% Na Spr 16 Gm Btl (*Bkc) NASAL 1 spray BID ALBER Administration Heparin Sodium (Porcine) 5,000 units 06/27/22 09:00 06/28/22 08:58 Heparin Sodium 5,000 Units/Ml Vial SUB-Q 5,000 units Q12HR ALBER Administration Lactulose 10 gm 06/27/22 05:08 Lactulose 20 Gm/30 Ml Udc PO DAILY PRN constipation Loratadine/Pseudoephedrine Sulfate 1 tab 06/27/22 05:09 Loratadine/Pseudoephedrine (*Crx) 10/240 Mg Tablet Er 24 Hr PO DAILY PRN sinus symptoms
--- NOTE | 2022-06-28 13:12 | WPDANESEPPF ---
Anes - Initial Pre Proc Eval Procedure: Operation Date: 06/29/22 09:00 Proposed Procedures p Left Total Hip Arthroplasty - Cruz Akins MD <Olvin Gill MD - Last Filed: 06/30/22 12:46> Date/Time: 06/28/22 13:12 <Olvin Gill MD - Last Filed: 06/30/22 12:46> Surgeon: Donta Delgado DO <Olvin Gill MD - Last Filed: 06/30/22 12:46> Pre Op Diagnosis: Left Femoral Neck Fracture <Olvin Gill MD - Last Filed: 06/30/22 12:46> Patient Data Age: 87 Gender: F Height: 1.65 m Weight: 81.5 kg <Olvin Gill MD - Last Filed: 06/30/22 12:46> Last Vital Signs Temp 36.3 C L 06/28/22 05:52 Pulse 66 06/28/22 05:52 Resp 14 06/28/22 05:52 BP 139/63 06/28/22 05:52 Pulse Ox 95 06/28/22 05:52 O2 Del Method Room Air 06/27/22 20:00 <Olvin Gill MD - Last Filed: 06/30/22 12:46> Allergies Allergy/AdvReac Type Severity Reaction Status Date / Time benzonatate Allergy Unknown Unknown Verified 06/27/22 04:42 ciprofloxacin Allergy Unknown Joint Pain Verified 06/27/22 04:42 diclofenac Allergy Unknown Confusion Verified 06/27/22 04:42 NSAIDS (Non-Steroidal Allergy Unknown Gastrointestinal Verified 06/27/22 04:42 Anti-Inflamma Upset/BLEEDING <Olvin Gill MD - Last Filed: 06/30/22 12:46> Home Medications Medication Instructions Recorded Confirmed Type cholecalciferol (vitamin D3) 75 75 mcg PO DAILY 08/21/20 06/27/22 History mcg (3,000 unit) tablet fluticasone propionate 50 1 spray intranasal BID #30 mL 10/30/20 06/27/22 Rx mcg/actuation nasal spray,suspension lactulose 10 gram/15 mL oral 10 g (15 mL) PO DAILY PRN 02/21/21 06/27/22 Rx solution constipation #473 mL loratadine 5 mg-pseudoephedrine ER 1 tablet PO DAILY PRN sinus 05/26/21 06/27/22 Rx 120 mg tablet,extended symptoms #30 tabs release,12hr (Allergy Relief-D (loratadine)) alprazolam 0.5 mg tablet (Xanax) 0.5 mg PO TID PRN anxiety 06/16/22 06/27/22 History oxycodone-acetaminophen 5 mg-325 1 - 2 tablet PO Q4H PRN pain 06/16/22 06/27/22 History mg tablet (Percocet) azelastine 137 mcg (0.1 %) nasal 1 spray intranasal DAILY 06/27/22 06/27/22 History spray aerosol <Olvin Gill MD - Last Filed: 06/30/22 12:46> Laboratory Tests 06/28/22 06/28/22 06:37 06:37 WBC 5.0 K/mm3 K/mm3 (4.5-10.0) RBC 3.83 M/mm3 L M/mm3 (4.2-5.4) Hgb 12.7 g/dL g/dL (12.0-15.0) Hct 39.0 % % (37.0-47.0) MCV 101.8 fl H fl (80-100) MCH 33.2 pg pg (26-34) MCHC 32.6 g/dl g/dl (32-36) RDW 12.8 % % (11.5-14.5) Plt Count 207 k/mm3 k/mm3 (150-375) MPV 8.9 fl fl (7.4-10.4) Immature Gran % (Auto) 0.2 % % (0-0.5) Neut % (Auto) 64.1 % % (45.5-73.1) Lymph % (Auto) 22.0 % % (18.3-44.2) [place] % (Auto) 9.9 % H % (2.6-8.5) Eos % (Auto) 2.6 % % (0-4.4) Baso % (Auto) 1.2 % % (0.2-1.2) Lymph # (Auto) 1.09 K/mm3 K/mm3 (0.9-3.2) [place] # (Auto) 0.5 K/mm3 K/mm3 (0.1-0.6) Eos # (Auto) 0.1 K/mm3 K/mm3 (0-0.3) Baso # (Auto) 0.1 K/mm3 K/mm3 (0.0-0.1) Abs Immat Gran (auto) 0.01 K/mm3 K/mm3 (0.00-0.031) Absolute Neuts (auto) 3.2 K/mm3 K/mm3 (1.3-6.7) Absolute Nucleated RBC 0.0 K/mm3 K/mm3 (0.0-0.012) Nucleated RBC % 0.0 % % (0.0-0.2) Sodium 134 mmol/L L mmol/L (137-145) Potassium 3.8 mmol/L mmol/L (3.4-5.0) Chloride 103 mmol/L mmol/L (98-107) Carbon Dioxide 26 mmol/L mmol/L (22-30) Anion Gap 5 mmol/L L mmol/L (8-16) BUN 14 mg/dL mg/dL (7-17) Creatinine 0.60 mg/dL L mg/dL (0.7-1.0) Estim Creat Clear Calc 60 ml/min ml/min Estimated GFR > 60 (59 - ) Glucose 85 mg/dL mg/dL (65-110) Calcium 8.8 mg/dL mg/dL (8.4-10.2) Total Bilirubin 0.7 mg/dL mg/dL (0.2-1.3)
[2022-06-28 14:00] VITALS: BP 139/67; PULSE 76; RESP 18; TEMP 36.4; O2SAT 94
--- NOTE | 2022-06-28 15:25 | PM.CNOR ---
Assessment and Plan Assessment and plan (1) Closed fracture of neck of left femur: Code(s): S72.002A - Fracture of unspecified part of neck of left femur, initial encounter for closed fracture Status: Acute Assessment and Plan: Displaced femoral neck fracture. Prodrome of hip pain over several months. Not relieved by knee arthroplasty and therapy. Acute worsening likely due to displacement of a chronic pathological fracture. Due to the fact that she is a community ambulator and has chronic hip pain, I recommend total hip arthroplasty. We discussed the risks, benefits, and alternatives to surgery. Proceed with left total hip arthroplasty. History of Present Illness HPI Consult date: 06/28/22 Chief complaint: Left Femoral Neck Fracture Narrative: Patient was admitted through the emergency room for definitive treatment for left subcapital femoral neck fracture. Patient states that on 06/26/21 she was able to walk around just fine. In the evening, was unable to get up and walk after sitting in a recliner. She states she did not fall. Notes she has had pain that she thought was knee pain for the last few weeks. Patient was recently admitted to the hospital for pain in the left leg secondary to being unable to walk last week and had just been discharged on MondayJune 20. Review of Systems Review of Systems: All systems reviewed & are unremarkable except as noted in HPI and below PMFSH Past Medical History Medical History Benzodiazepine dependence Bone spur of left foot Breast cancer PAULA (cerebral atherosclerosis) Chronic GERD Chronic pain disorder DONNIE (generalized anxiety disorder) History of recurrent UTI (urinary tract infection) HTN (hypertension) Knee pain Lymphoma Opioid dependence Opioid use disorder Surgical History Surgical History H/O bilateral cataract extraction H/O breast reconstruction H/O hysterectomy with unilateral oophorectomy H/O: hysterectomy History of hip replacement History of knee replacement right History of lumpectomy History of lumpectomy of left breast History of open reduction and internal fixation (ORIF) procedure (~03/06/20) Rt Proximal Humerus Family History Family History Other Carcinoma of colon Diabetes mellitus Family history of lung cancer Social History Social History Social History: The patient is . 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 Her friend laureen hammonds is her durable power banking attorney for healthcare. The patient is a former smoker. She denies any alcohol marijuana or illicit drugs. Code status full code Smoking packs per day: 0.5 Smoking cigarettes per day: 10.0 Years smoked: 20 Smoking pack-years: 10.00 Smoking status: Former smoker Tobacco type: cigarettes Second hand tobacco smoke exposure: No Smoking end date: 06/26/94 Alcohol intake: never Substance use: never Substance use type: does not use Lack of Transportation: No Lack of Food: Never True Current Housing: I Have Housing Concerned About Future Housing: No Difficulty Paying Gas/Electric Bills: No Difficulty Paying for Meds: No Currently Unemployed: No Education: Master's Degree or Higher Difficulty w/ Childcare or Family Care: No Gender identity (if verbalized by the patient): Female Sexual Orientation (if Verbalized by the Patient): Straight or Heterosexual Spiritual care concerns: No Meds Home Medications and Allergies Home Medications Medication Instructions Recorded Confirmed Type cholecalciferol (vitamin D3) 75 75 mcg PO DAILY 08/21/20 06/27/22 History mcg (3,000 unit) tablet fluticasone propionate 50 1 spray intranasal BID #30 mL 10/30/20 06/27/22 Rx mcg/actuatio
[2022-06-28] MEDS: ALPRAZolam (*CRX) 0.5 MG TABLET PO ×2 (15:39→23:04)
[2022-06-28] MEDS: AZELASTINE HCL NASAL 0.1% 137 MCG/SPR 30 ML BTL 1 SPRAY NASAL (20:20)
[2022-06-28 22:00] VITALS: BP 139/65; PULSE 81; RESP 18; TEMP 36.3; O2SAT 93
[2022-06-28] MEDS: MORPHINE SULFATE (*CRX) 2 MG/ML INJ IV PUSH (23:03)
[2022-06-28 23:31] VITALS: O2SAT 93
[2022-06-29] VITALS (14 sets, daily range): BP systolic 118–159; BP diastolic 53–87; PULSE 70–115; RESP 12–22; TEMP 36.2–37.3; O2SAT 93–100
[2022-06-29] MEDS: ACETAMINOPHEN 500 MG TABLET 1000 MG PO ×3 (06:09→17:50)
--- NOTE | 2022-06-29 07:47 | WPDANESEPPF ---
Anes - Initial Pre Proc Eval Procedure: Operation Date: 06/29/22 09:00 Proposed Procedures p Left Total Hip Arthroplasty - Cruz Akins MD Date/Time: 06/29/22 07:47 Surgeon: Donta Delgado DO Pre Op Diagnosis: Left Femoral Neck Fracture Patient Data Age: 87 Gender: F Height: 1.65 m Weight: 81.5 kg Last Vital Signs Temp 36.4 C L 06/29/22 06:00 Pulse 72 06/29/22 06:00 Resp 16 06/29/22 06:00 BP 118/53 L 06/29/22 06:00 Pulse Ox 96 06/29/22 06:00 O2 Del Method Room Air 06/28/22 23:31 Allergies Allergy/AdvReac Type Severity Reaction Status Date / Time benzonatate Allergy Unknown Unknown Verified 06/27/22 04:42 ciprofloxacin Allergy Unknown Joint Pain Verified 06/27/22 04:42 diclofenac Allergy Unknown Confusion Verified 06/27/22 04:42 NSAIDS (Non-Steroidal Allergy Unknown Gastrointestinal Verified 06/27/22 04:42 Anti-Inflamma Upset/BLEEDING Home Medications Medication Instructions Recorded Confirmed Type cholecalciferol (vitamin D3) 75 75 mcg PO DAILY 08/21/20 06/27/22 History mcg (3,000 unit) tablet fluticasone propionate 50 1 spray intranasal BID #30 mL 10/30/20 06/27/22 Rx mcg/actuation nasal spray,suspension lactulose 10 gram/15 mL oral 10 g (15 mL) PO DAILY PRN 02/21/21 06/27/22 Rx solution constipation #473 mL loratadine 5 mg-pseudoephedrine ER 1 tablet PO DAILY PRN sinus 05/26/21 06/27/22 Rx 120 mg tablet,extended symptoms #30 tabs release,12hr (Allergy Relief-D (loratadine)) alprazolam 0.5 mg tablet (Xanax) 0.5 mg PO TID PRN anxiety 06/16/22 06/27/22 History oxycodone-acetaminophen 5 mg-325 1 - 2 tablet PO Q4H PRN pain 06/16/22 06/27/22 History mg tablet (Percocet) azelastine 137 mcg (0.1 %) nasal 1 spray intranasal DAILY 06/27/22 06/27/22 History spray aerosol Results Review: All pre-operative results and documents have been reviewed as part of the pre-operative evaluation. [facility] Past Medical History Medical History (Updated 06/29/22 @ 07:50 by Ernesto Grider DO) Benzodiazepine dependence Bone spur of left foot Breast cancer PAULA (cerebral atherosclerosis) Chronic GERD Chronic pain disorder DONNIE (generalized anxiety disorder) History of recurrent UTI (urinary tract infection) HTN (hypertension) Knee pain Lymphoma Neuropathy Opioid dependence Opioid use disorder Surgical History Surgical History (Updated 06/29/22 @ 07:50 by Ernesto Grider DO) H/O bilateral cataract extraction H/O breast reconstruction H/O hysterectomy with unilateral oophorectomy H/O: hysterectomy History of appendectomy History of hip replacement History of knee replacement right History of lumpectomy History of lumpectomy of left breast History of open reduction and internal fixation (ORIF) procedure (~03/06/20) Rt Proximal Humerus Family History Family History Other Carcinoma of colon Diabetes mellitus Family history of lung cancer Social History Social History Social History: The patient is . 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 Her friend laureen hammonds is her durable power ip technology transactions attorney for healthcare. The patient is a former smoker. She denies any alcohol marijuana or illicit drugs. Code status full code Smoking packs per day: 0.5 Smoking cigarettes per day: 10.0 Years smoked: 20 Smoking pack-years: 10.00 Smoking status: Former smoker Tobacco type: cigarettes Second hand tobacco smoke exposure: No Smoking end date: 06/26/94 Alcohol intake: never Substance use: never Substance use type: does not use Lack of Transportation: No Lack of Food: Never True Current Housing: I Have Housing Concerned About Future Housing: No Difficulty Paying Gas/Electric Bills: No Difficulty Paying for Meds: No Currently Unemployed: No Education: M
[2022-06-29] MEDS: LACTATED RINGERS 1,000 ML 30 ML IV CONT ×2 (08:20→11:40)
[2022-06-29] MEDS: TRANEXAMIC ACID 1,000MG/ISO100 1,000 MG/100 ML BAG 200 MG IVPB (08:21)
--- NOTE | 2022-06-29 08:53 | WPDHPUPDATE1 ---
History and Physical Update Update Date/Time: 06/29/22 08:53 History and Physical has been reviewed, including an updated exam of the patient. There are NO changes in the patient's condition. Risks, benefits, and alternatives have been discussed and questions answered. Patient agrees to proceed with procedure.
[2022-06-29] MEDS: ceFAZolin 2 GM/D5W 50 ML 2 GM/50 ML BAG IVPB ×2 (08:58→17:45)
[2022-06-29] MEDS: fentaNYL CITRATE INJ (*CRX) 100 MCG/2 ML VIAL 25 MCG IV PUSH ×3 (11:49→12:23)
[2022-06-29] MEDS: MORPHINE SULFATE (*CRX) 2 MG/ML INJ IV PUSH (13:20)
--- NOTE | 2022-06-29 15:04 | PCPTNOTE ---
Attempted PT evaluation, pt refused due to pain and I want to talk to my doctor first. RN aware. Will Follow.
--- NOTE | 2022-06-29 15:35 | PCOTNOTE ---
Attempted to see pt. for occupational therapy evaluation. Pt. lightly sleeping, awoke pt. for therapy, requesting to be seen tomorrow. Nursing aware.
[2022-06-29] MEDS: oxyCODONE HCL (*CRX) 5 MG TAB IR PO ×2 (16:03→17:49)
[2022-06-29] MEDS: FLUTICASONE PROPIONATE 0.05% NA SPR 16 GM BTL (*BKC) 1 SPRAY NASAL (16:05)
[2022-06-29] MEDS: CHOLECALCIFEROL 1,000 UNITS TABLET 3000 UNITS PO (16:05)
[2022-06-29] MEDS: HEPARIN SODIUM 5,000 UNITS/ML VIAL 5000 UNITS SUB-Q ×2 (16:05→21:21)
[2022-06-29] MEDS: SENNA/DOCUSATE SODIUM TABLET 2 TAB PO (16:06)
--- NOTE | 2022-06-29 16:38 | W.PM.PROC2 ---
Procedure Note - Detailed Date of Procedure 06/29/22 Pre-op Diagnosis Left Femoral Neck Fracture Post-op Diagnosis Other (1.Left hip displaced femoral neck fracture 2.Left hip chronic abductor muscle tear.) Procedure Performed 1.Left Total Hip Arthroplasty 2.Left hip abductor muscle repair. Surgeon Cruz Akins MD Anesthesia General Findings Abductor muscle high-grade partial tear of the gluteus medius. Obesity. Tissue laxity noted. Fair bone quality. Description of Procedure The patient was given preoperative antibiotics. A general anesthetic was administered. The patient was carefully placed in the lateral decubitus position on the PEG board. The shoulders and hips were carefully positioned for component and leg length positioning reference. The hip was prepped and draped in the usual sterile fashion. A longitudinal incision was created over the posterior aspect of the greater trochanter. Careful dissection was brought down through the deep fascia with electrocautery. A minimally invasive optimized posterior approach to the hip was performed. The short external rotators and capsule were taken down in an L-shaped capsulotomy. The tissue was tagged for later repair using number 2 high strength suture. The femoral neck was measured and taken in situ. The femoral head was removed. The acetabulum was carefully exposed. The inferior capsule was released. The labrum was resected. The acetabulum was sequentially reamed to the intended cup size. The cup was impacted into position with excellent press-fit. Typical anatomic landmarks, including the bony contact points as well as the inferior transverse acetabular ligament were used to confirm cup positioning with preoperative templating. A single screw was placed superiorly for additional acetabular component stability. Attention was turned to the femur, which was carefully exposed. The hip was reamed and then broached sequentially. Excellent press-fit was obtained with the broach. The hip was trialed. Measurements were utilized, including the lesser trochanter as well as the center of the femoral head and the tip of the trochanter, and excellent assessment of the offset and leg lengths were confirmed. The real component was impacted into position. Trialing confirmed appropriate leg length and offset with soft tissue balancing as well apparent feel of the leg, both at the knee and the heel. Soft tissues were assessed using the the iliotibial band. Reduction of the posterior capsule and external rotators were also used as a secondary assessment. The +5 head provided optimal soft tissue stability and removed the laxity in the tissues. Given her higher risk for dislocation, it was felt that the increased stability from the +5 head was optimal, despite slight leg lengthening. The hip was copiously irrigated with pulsatile lavage antibiotic solution periodically throughout the procedure. The real components were then assembled and reduced. The hip was stable throughout typical maneuvers, including extension, external rotation to 70 degrees, the position of sleep as well as flexion to 90 degrees with internal rotation past 30 degrees. The shake test confirmed stability without impingement. Osteophytes were removed as necessary. The short external rotators and capsule were repaired back to the posterior trochanter through drill holes. The gluteus medius abductor muscle showed high-grade partial tearing. Multiple 5. Ethibond sutures were passed through the tendon in into the greater trochanter bone. This provided a margin convergence and reattachment to the bone in a typical fashion. The repair was penn. The deep fascia was repaired with running number 2 Quill suture, followed by 0 Stratafix suture and 2-0 Stratafix suture in the dermis. Steri-Strips were placed on the skin, followed by a sterile silver occlusive dressing. There were no complications. Meticulous hemostasis was maintained with
--- NOTE | 2022-06-29 17:07 | PM.IMPN ---
Progress Note: A&P Assessment and Plan (1) Closed fracture of neck of left femur: Code(s): S72.002A - Fracture of unspecified part of neck of left femur, initial encounter for closed fracture Status: Acute Plan # left femoral neck fracture - likely underlying osteoporosis. patient was complaining of left hip pain during recent hospitalization, at that time imaging was negative for fracture. perhaps patient was developing this fracture and had an area that was prone to injury. she was treated with steroids and pain control - orthopedics Dr. Akins consulted, performed of hip arthroplasty on June 29 - pain control: Tylenol, [place], morphine -consult PT OT # other chronic conditions - constipation: At home use lactulose p.r.n. - likely osteoporosis: Continue home vitamin-D supplement - allergies: Continue fluticasone, loratadine - anxiety: Continue home Xanax Diet: Resume with okay for orthopedic surgeon DVT prophylaxis: Will start postop per orthopedic recommendations Code status: Do not resuscitate Disposition: Pending clinical course likely surgery then rehab afterwards Subjective Date/time seen: 06/29/22 17:07 Saw and examined patient today, patient underwent left total hip arthroplasty under general anesthesia. Extubated successfully, without complication. One ascites and patient, patient denies chest pain, shortness of breath, and limping, nausea vomiting diarrhea, patient is afebrile, hemodynamically stable Exam Narrative: - GENERAL: pleasant older woman in no acute distress. Well-nourished. - EYES: EOMI. Anicteric. - HENT: Moist mucous membranes. - LUNGS: Clear to auscultation bilaterally, no wheezing, rhonchi, or rales. - CARDIOVASCULAR: Regular rate and rhythm. No murmur. No JVD. - ABDOMEN: Soft, non-tender and non-distended. No palpable masses. - EXTREMITIES: No edema. Peripheral pulses 2+. Non-tender. left hip is restricted with movement, some tender on any manipulation, surgical wound dry and clean - NEUROLOGIC: No focal neurological deficits. CN II-XII grossly intact. - PSYCHIATRIC: Awake, Alert and oriented x 3. intelligent, Appropriate mood and affect. - SKIN: No rashes or lesions. Warm. - LYMPH: No cervical lymphadenopathy. Objective Data Vital Signs Vital Signs: Vital Signs - 24 hr 06/28/22 22:00 06/28/22 20:00 06/28/22 23:31 Temperature 97.3 F L Pulse Rate 81 Respiratory Rate 18 Blood Pressure 139/65 Pulse Oximetry 93 93 Oxygen Delivery Room Air Room Air Oxygen Flow Rate 06/29/22 06:00 06/29/22 08:14 06/29/22 11:40 Temperature 97.5 F L 98.1 F 97.1 F L Pulse Rate 72 70 80 Respiratory Rate 16 16 22 H Blood Pressure 118/53 L 122/54 L 150/63 H Pulse Oximetry 96 94 100 Oxygen Delivery Room Air Simple Face Mask Oxygen Flow Rate 8 06/29/22 11:55 06/29/22 12:10 06/29/22 12:25 Temperature Pulse Rate 80 72 74 Respiratory Rate 18 16 12 Blood Pressure 154/77 H 154/59 H 145/58 H Pulse Oximetry 100 100 97 Oxygen Delivery Simple Face Mask Simple Face Mask Nasal Cannula Oxygen Flow Rate 8 8 2 06/29/22 12:40 06/29/22 12:50 06/29/22 13:15 Temperature 97.8 F Pulse Rate 79 83 89 Respiratory Rate 18 18 16 Blood Pressure 153/68 H 151/67 H 153/71 H Pulse Oximetry 98 97 97 Oxygen Delivery Nasal Cannula Nasal Cannula Oxygen Flow Rate 2 2 06/29/22 13:30 06/29/22 14:00 06/29/22 15:00 Temperature 98.7 F 98.5 F 98.0 F Pulse Rate 88 90 97 Respiratory Rate 18 16 18 Blood Pressure 151/87 H 159/66 H 153/78 H Pulse Oximetry 97 97 93 Oxygen Delivery Oxygen Flow Rate Intake/Output Intake/Output: Intake & Output 06/26/22 06/27/22 06/28/22 06/29/22 23:59 23:59 23:59 23:59 Intake Total 2790 1580 750 Output Total 1350 1850 610 Balance 1440 -270 140 Meds/Results Medications: Active Medications Generic Name Dose Route Start Last Admin Trade Name Freq PRN Reason Stop Dose Admin Acetaminophen 1,000 mg 06/27/22 14:05
--- NOTE | 2022-06-29 20:08 | PC.NURSE ---
This RN gave 5mg oxycodone IR at 1603. Pain decreasing. At 1749, pt c/o pain increasing. This RN made aware by previous day RN pt sees a pain doctor and regularly takes oxycodone. Gave 2-5mg to equate the 10 mg she was eligible to have, but that I was unaware she would likely need. Pt states she will take all the meds she can have as soon as she can. I let her know we would ask pain score and treat accordingly. At bedside shift report, pt told night nurse just to bring the meds as often as she can. Re-educated pt about pain scale.
[2022-06-29] MEDS: AZELASTINE HCL NASAL 0.1% 137 MCG/SPR 30 ML BTL 1 SPRAY NASAL (21:16)
[2022-06-29] MEDS: FAMOTIDINE 20 MG TABLET PO (21:16)
[2022-06-29] MEDS: oxyCODONE HCL (*CRX) 5 MG TAB IR 10 MG PO (21:16)
[2022-06-29] MEDS: ALPRAZolam (*CRX) 0.5 MG TABLET PO (22:54)
[2022-06-30] VITALS: BP 152/65; PULSE 108; RESP 18; TEMP 36.8; O2SAT 96
[2022-06-30] MEDS: oxyCODONE HCL (*CRX) 5 MG TAB IR PO ×2 (01:05→05:52)
--- NOTE | 2022-06-30 01:16 | PC.NURSE ---
Patient has been continuously asking for pain medication throughout night. She has been slightly confused since beginning of shift, making statements that don't make sense and preforming unusual actions like using the remote for the wrong TV. Patient requested a xanax which was given, and shortly requested another pain pill after. I told her I did not feel comfortable giving her that much pain medication close together with the xanax, due to her acts of confusion. Patient got angry with me and refused tylenol, stating she only wanted the oxycodone. Had conversation with patient that I did not feel comfortable giving her any more narcotics until more time has passed. She has stated multiple times that pain is 6/10.
[2022-06-30] MEDS: ceFAZolin 2 GM/D5W 50 ML 2 GM/50 ML BAG IVPB ×2 (01:59→08:31)
[2022-06-30 04:00] VITALS: BP 121/48; PULSE 96; RESP 16; TEMP 36.6; O2SAT 92
--- NOTE | 2022-06-30 04:37 | PC.NURSE ---
Patient is confused. Asked if she was in hospital. Reoriented her to surroundings. Stated she just got up and out of bed which is not true. Will continue to monitor. Resting comfortably now.
[2022-06-30 07:11] LABS: Basophils Percent Auto 0.2 % (0.2-1.2); Hematocrit 37.3 % (37.0-47.0); Hemoglobin 12.5 g/dL (12.0-15.0); Immature Granulocyte Absolute 0.05 K/mm3 (0.00-0.031); Immature Granulocyte Percent A 0.4 % (0-0.5); Immature Platelet Fraction Pct 4.1 % (0.9-11.2); Lymphocytes Absolute Auto 0.94 K/mm3 (0.9-3.2); Lymphocytes Percent Auto 7.7 % (18.3-44.2); Mean Corpuscular HGB Conc 33.5 g/dl (32-36); Mean Corpuscular Hemoglobin 33.6 pg (26-34); Mean Corpuscular Volume 100.3 fl (80-100); Mean Platelet Volume 9.9 fl (7.4-10.4); Monocytes Percent Auto 8.6 % (2.6-8.5); Neutrophils Absolute Auto 10.1 K/mm3 (1.3-6.7); Neutrophils Percent Auto 83.1 % (45.5-73.1); Platelet Count Result 163 k/mm3 (150-375); Red Blood Count 3.72 M/mm3 (4.2-5.4); White Blood Count 12.1 K/mm3 (4.5-10.0)
[2022-06-30 07:21] LABS: Alanine Aminotransferase 34 U/L (6-35); Albumin Level 3.4 g/dL (3.5-5.1); Alkaline Phosphatase 116 U/L (38-126); Anion Gap 4 mmol/L (8-16); Aspartate Amino Transferase 43 U/L (14-36); Bilirubin,Total 0.8 mg/dL (0.2-1.3); Blood Urea Nitrogen 14 mg/dL (7-17); Calcium 8.6 mg/dL (8.4-10.2); Carbon Dioxide 25 mmol/L (22-30); Chloride 103 mmol/L (98-107); Estimated CRCL calculation 52 ml/min; Estimated Glomerular Filt Rate > 60; Glucose 119 mg/dL (65-110); Potassium 4.6 mmol/L (3.4-5.0); Sodium 132 mmol/L (137-145)
--- NOTE | 2022-06-30 08:11 | PM.PNORT ---
Progress Note: A&P Assessment and Plan (1) Closed fracture of neck of left femur: Code(s): S72.002A - Fracture of unspecified part of neck of left femur, initial encounter for closed fracture Status: Acute Plan Postop day 1: Total hip arthroplasty post hip fracture. Patient tolerated procedure well. She was found to have an abductor tendon tear. This was repaired at the time of surgery. I recommend partial weight bearing with a walker for the next 4 weeks. Pain manageable with pain medication. No numbness or tingling. We had a lengthy discussion regarding postoperative wound care, limitations, expectations, and exercises. Patient shows good understanding. Patient has had initial physical therapy. We discussed the importance of participating with physical therapy. Patient's pain has been difficult to control. She is on chronic pain medications. Patient is refusing compression socks. Discussed the importance of them to decrease risk of blood clots. Ortho instructions: (DOS: 06/29/21) D/C to SNF/rehab Follow up in 4 weeks with xrays in the office. Please call for appointment. [facility] orthopedics Wound Care: Hip: Remove Mepilex dressing at 7 days post op. Remove steristrips at 14 days post op. May shower. No soaking. PT: Partial weight bearing with a walker for 4 weeks. DVT prophylaxis: continue Lovenox for 30 days total Pain medication: Oxycodone Subjective Subjective Date/Time Seen: 06/30/22 08:11 Interval history: Patient resting comfortably in bed. Notes pain at rest. No other complaints. Review of Systems Review of Systems: All systems reviewed & are unremarkable except as noted in HPI and below Exam Narrative: Overweight 87 y/o female. Resting comfortably in bed. Not wearing compression socks bilaterally. Dressing dry and intact with no drainage. Mild swelling. No ecchymosis. No erythema. No hematoma. Range of motion limited due to pain. Calf nontender. Thigh nontender. Neurologic status intact. No varicosities. Distal pulses palpable. Objective Data Vital Signs Vital Signs: Vital Signs - 24 hr 06/29/22 08:14 06/29/22 11:40 06/29/22 11:55 Temperature 98.1 F 97.1 F L Pulse Rate 70 80 80 Respiratory Rate 16 22 H 18 Blood Pressure 122/54 L 150/63 H 154/77 H Pulse Oximetry 94 100 100 Oxygen Delivery Room Air Simple Face Mask Simple Face Mask Oxygen Flow Rate 8 8 06/29/22 12:10 06/29/22 12:25 06/29/22 12:40 Temperature Pulse Rate 72 74 79 Respiratory Rate 16 12 18 Blood Pressure 154/59 H 145/58 H 153/68 H Pulse Oximetry 100 97 98 Oxygen Delivery Simple Face Mask Nasal Cannula Nasal Cannula Oxygen Flow Rate 8 2 2 06/29/22 12:50 06/29/22 13:15 06/29/22 13:30 Temperature 97.8 F 98.7 F Pulse Rate 83 89 88 Respiratory Rate 18 16 18 Blood Pressure 151/67 H 153/71 H 151/87 H Pulse Oximetry 97 97 97 Oxygen Delivery Nasal Cannula Oxygen Flow Rate 2 06/29/22 14:00 06/29/22 15:00 06/29/22 18:00 Temperature 98.5 F 98.0 F 99.2 F Pulse Rate 90 97 115 H Respiratory Rate 16 18 16 Blood Pressure 159/66 H 153/78 H 146/69 H Pulse Oximetry 97 93 93 Oxygen Delivery Oxygen Flow Rate 06/29/22 21:00 06/30/22 00:00 06/29/22 21:16 Temperature 97.6 F 98.2 F Pulse Rate 97 108 H Respiratory Rate 18 18 Blood Pressure 132/58 L 152/65 H Pulse Oximetry 94 96 Oxygen Delivery Room Air Oxygen Flow Rate 06/30/22 04:00 Temperature 97.9 F Pulse Rate 96 Respiratory Rate 16 Blood Pressure 121/48 L Pulse Oximetry 92 Oxygen Delivery Oxygen Flow Rate Intake/Output Intake/Output: Intake & Output 06/27/22 06/28/22 06/29/22 06/30/22 23:59 23:59 23:59 23:59 Intake Total 2790 1580 1120 200 Output Total 1350 1850 1360 700 Balance 5840 -455 -240 -500 Meds/Results Medications: Active Medications Generic Name Dose Route Start Last Admin Trade Name Freq PRN Reason Stop Dose Admin Acetaminophen 1,000 mg 06/27/22 14:05
[2022-06-30] MEDS: HEPARIN SODIUM 5,000 UNITS/ML VIAL 5000 UNITS SUB-Q ×2 (08:31→22:03)
[2022-06-30] MEDS: polyethylene glycoL 3350 17 GM POWD.PACK PO (08:32)
[2022-06-30] MEDS: FAMOTIDINE 20 MG TABLET PO ×2 (08:32→22:03)
[2022-06-30] MEDS: CYCLOBENZAPRINE HCL 10 MG TABLET PO (08:32)
[2022-06-30] MEDS: SENNA/DOCUSATE SODIUM TABLET 2 TAB PO (08:32)
[2022-06-30 08:33] LABS: Atypical Lymphocytes Present; Platelet Estimate Adequate (Adequate); Schistocytes None Seen (NORMAL)
--- NOTE | 2022-06-30 09:48 | P.PNAN_ITS ---
Anes - Prog Note Post-Op Date/Time: 06/30/22 09:48 Cardiovascular status: normal Respiratory status: normal Airway patency: baseline Mental status: baseline Post-Op hydration status: normal Vital Signs: Last Vital Signs Temp 36.6 C 06/30/22 04:00 Pulse 96 06/30/22 04:00 Resp 16 06/30/22 04:00 BP 121/48 L 06/30/22 04:00 Pulse Ox 92 06/30/22 04:00 O2 Del Method Nasal Cannula 06/30/22 08:21 O2 Flow Rate 2 06/30/22 08:21 Pain Score (VAS): 09/02 I/O: Intake & Output 06/29/22 06/30/22 06/30/22 23:59 07:59 15:59 Intake Total 370 200 Output Total 750 700 Balance -380 -500 Laboratory Tests 06/30/22 06:35 06/30/22 06:35 06/30/22 06/30/22 06:35 06:35 WBC 12.1 H RBC 3.72 L Hgb 12.5 Hct 37.3 MCV 100.3 H MCH 33.6 MCHC 33.5 RDW 13.0 Plt Count 163 MPV 9.9 Immature Gran % (Auto) 0.4 Neut % (Auto) 83.1 H Lymph % (Auto) 7.7 L [place] % (Auto) 8.6 H Eos % (Auto) 0.0 Baso % (Auto) 0.2 Lymph # (Auto) 0.94 [place] # (Auto) 1.0 H Eos # (Auto) 0.0 Baso # (Auto) 0.0 Abs Immat Gran (auto) 0.05 H Absolute Neuts (auto) 10.1 H Absolute Nucleated RBC 0.0 Nucleated RBC % 0.0 Atypical Lymphocytes Present Platelet Estimate Adequate % Immature Plt Fraction 4.1 Schistocytes None seen Sodium 132 L Potassium 4.6 Chloride 103 Carbon Dioxide 25 Anion Gap 4 L BUN 14 Creatinine 0.70 Estim Creat Clear Calc 52 Estimated GFR > 60 Glucose 119 H Calcium 8.6 Total Bilirubin 0.8 AST 43 H ALT 34 Alkaline Phosphatase 116 Total Protein 6.0 L Albumin 3.4 L Post-procedural complaints: none Patient Feedback: Patient satisfied with anesthetic care.
[2022-06-30 09:56] VITALS: BP 116/61; PULSE 104; RESP 18; TEMP 37; O2SAT 95
[2022-06-30] MEDS: oxyCODONE HCL (*CRX) 5 MG TAB IR 10 MG PO (11:42)
[2022-06-30] MEDS: ACETAMINOPHEN 500 MG TABLET 1000 MG PO ×2 (11:44→23:58)
[2022-06-30] MEDS: CHOLECALCIFEROL 1,000 UNITS TABLET 3000 UNITS PO (11:45)
--- NOTE | 2022-06-30 12:06 | PC.NURSE ---
Pt acting very odd and suspicious. Pt opening dividing curtain in room; demanding to fix the pump of the other pt. Pt states she knows how to take her meds, that we just need to bring them when she asks. Pt annoyed with roommate pump beeping and is talking about shutting off her phone as people won't quit calling. Pt A/Ox2, thinks people are talking about her when this RN is talking to bed 1 pt. Pt very aggressive with and offended by PT and OT seeing her and encouraging her. She stated that she is not going to follow the doctor's advice as last time she did it caused her hip to break. Informed Ashish, ENGINEERING MANAGER/PA, who stated that she is a well known pt to them who often has random thought patterns and takes pain medication prior to admission.
[2022-06-30 14:30] VITALS: BP 107/71; PULSE 87; RESP 16; TEMP 36.5; O2SAT 98
[2022-06-30 16:39] LABS: Hematocrit 37.6 % (37.0-47.0); Hemoglobin 12.3 g/dL (12.0-15.0); Mean Corpuscular HGB Conc 32.7 g/dl (32-36); Mean Corpuscular Hemoglobin 34.5 pg (26-34); Mean Corpuscular Volume 105.3 fl (80-100); Mean Platelet Volume 8.6 fl (7.4-10.4); Platelet Count Result 201 k/mm3 (150-375); Red Blood Count 3.57 M/mm3 (4.2-5.4); Red Cell Distribution Width 13.2 % (11.5-14.5)
--- NOTE | 2022-06-30 17:15 | PM.IMPN ---
Progress Note: A&P Assessment and Plan (1) Closed fracture of neck of left femur: Code(s): S72.002A - Fracture of unspecified part of neck of left femur, initial encounter for closed fracture Status: Acute Plan # left femoral neck fracture - likely underlying osteoporosis. patient was complaining of left hip pain during recent hospitalization, at that time imaging was negative for fracture. perhaps patient was developing this fracture and had an area that was prone to injury. she was treated with steroids and pain control - orthopedics Dr. Akins consulted, performed of hip arthroplasty on June 29 - pain control: Tylenol, [place], morphine -consult PT OT # other chronic conditions - constipation: At home use lactulose p.r.n. - likely osteoporosis: Continue home vitamin-D supplement - allergies: Continue fluticasone, loratadine - anxiety: Continue home Xanax Diet: Resume with okay for orthopedic surgeon DVT prophylaxis: Will start postop per orthopedic recommendations Code status: Do not resuscitate Disposition: Pending clinical course likely surgery then rehab afterwards Subjective Date/time seen: 06/30/22 17:15 Saw and assessed the patient a.m. no new issue events over the night. Patient denies chest pain, abdomen pain, shortness of breath. Still has left hip pain with ambulation Exam Narrative: - GENERAL: pleasant older woman in no acute distress. Well-nourished. - EYES: EOMI. Anicteric. - HENT: Moist mucous membranes. - LUNGS: Clear to auscultation bilaterally, no wheezing, rhonchi, or rales. - CARDIOVASCULAR: Regular rate and rhythm. No murmur. No JVD. - ABDOMEN: Soft, non-tender and non-distended. No palpable masses. - EXTREMITIES: No edema. Peripheral pulses 2+. Non-tender. left hip is restricted with movement, some tender on any manipulation, surgical wound dry and clean - NEUROLOGIC: No focal neurological deficits. CN II-XII grossly intact. - PSYCHIATRIC: Awake, Alert and oriented x 3. intelligent, Appropriate mood and affect. - SKIN: No rashes or lesions. Warm. - LYMPH: No cervical lymphadenopathy. Objective Data Vital Signs Vital Signs: Vital Signs - 24 hr 06/29/22 18:00 06/29/22 21:00 06/30/22 00:00 Temperature 99.2 F 97.6 F 98.2 F Pulse Rate 115 H 97 108 H Respiratory Rate 16 18 18 Blood Pressure 146/69 H 132/58 L 152/65 H Pulse Oximetry 93 94 96 Oxygen Delivery Oxygen Flow Rate 06/29/22 21:16 06/30/22 04:00 06/30/22 08:05 Temperature 97.9 F Pulse Rate 96 Respiratory Rate 16 Blood Pressure 121/48 L Pulse Oximetry 92 Oxygen Delivery Room Air Room Air Oxygen Flow Rate 06/30/22 08:21 06/30/22 09:56 06/30/22 14:30 Temperature 98.6 F 97.7 F Pulse Rate 104 H 87 Respiratory Rate 18 16 Blood Pressure 116/61 107/71 Pulse Oximetry 95 98 Oxygen Delivery Nasal Cannula Oxygen Flow Rate 2 Intake/Output Intake/Output: Intake & Output 06/27/22 06/28/22 06/29/22 06/30/22 23:59 23:59 23:59 23:59 Intake Total 2790 1580 1120 680 Output Total 1350 1850 1360 700 Balance 1440 -270 -240 -20 Meds/Results Medications: Active Medications Generic Name Dose Route Start Last Admin Trade Name Freq PRN Reason Stop Dose Admin Acetaminophen 1,000 mg 06/27/22 14:05 06/30/22 11:44 Acetaminophen 500 Mg Tablet PO 1,000 mg Q6HR ALBER Administration Al Hydrox/Mg Hydrox/Simethicone 30 ml 06/27/22 05:00 Mag Hydrox/Al Hydrox/Simeth 30 Ml Udc PO QID PRN Dyspepsia Alprazolam 0.5 mg 06/27/22 04:59 06/29/22 22:54 Alprazolam (*Crx) 0.5 Mg Tablet PO 0.5 mg TID PRN Administration anxiety Azelastine HCl 1 spray 06/27/22 21:00 06/29/22 21:16 Azelastine Hcl Nasal 0.1% 137 Mcg/Spr 30 Ml Btl NASAL 1 spray HS ALBER Administration Bisacodyl 5 mg 06/27/22 05:00 Bisacodyl 5 Mg Tablet Ec PO DAILY PRN Constipation Cyclobenzaprine HCl 10 mg 06/29/22 12:54 06/30/22 08:32 Cyclobenzaprine Hcl 10
--- NOTE | 2022-06-30 18:37 | PC.NURSE ---
Pt had been very confused, agitated and slightly combative this morning. She appears to be more mentally clear now, and is A/Ox3. She states pain is at a 2. Reminded pt to call us if she starts to have any pain.
[2022-06-30 22:00] VITALS: BP 103/90; PULSE 108; RESP 18; TEMP 36.6; O2SAT 90
[2022-06-30] MEDS: AZELASTINE HCL NASAL 0.1% 137 MCG/SPR 30 ML BTL 1 SPRAY NASAL (22:04)
[2022-07-01 06:00] VITALS: BP 104/71; PULSE 87; RESP 18; TEMP 36.5; O2SAT 97
[2022-07-01] MEDS: polyethylene glycoL 3350 17 GM POWD.PACK PO (08:10)
[2022-07-01] MEDS: CHOLECALCIFEROL 1,000 UNITS TABLET 3000 UNITS PO (08:10)
[2022-07-01] MEDS: HEPARIN SODIUM 5,000 UNITS/ML VIAL 5000 UNITS SUB-Q ×2 (08:10→20:15)
[2022-07-01] MEDS: FAMOTIDINE 20 MG TABLET PO ×2 (08:11→20:15)
[2022-07-01] MEDS: SENNA/DOCUSATE SODIUM TABLET 2 TAB PO ×2 (08:11→17:00)
[2022-07-01] MEDS: oxyCODONE HCL (*CRX) 5 MG TAB IR 10 MG PO ×2 (12:15→20:20)
[2022-07-01 14:00] VITALS: BP 129/62; PULSE 91; RESP 18; TEMP 36.4; O2SAT 97
--- NOTE | 2022-07-01 16:04 | PM.PNORT ---
Progress Note: A&P Assessment and Plan (1) Closed fracture of neck of left femur: Code(s): S72.002A - Fracture of unspecified part of neck of left femur, initial encounter for closed fracture Status: Acute Plan Postop day 2: Total hip arthroplasty post hip fracture. Patient was able to get up to a chair today. Patient tolerated procedure well. She was found to have an abductor tendon tear. This was repaired at the time of surgery. I recommend partial weight bearing with a walker for the next 4 weeks. Pain manageable with pain medication. No numbness or tingling. Okay for discharge once medically cleared. Ortho instructions: (DOS: 06/29/21) D/C to SNF/rehab Follow up in 4 weeks with xrays in the office. Please call for appointment. [facility] orthopedics Wound Care: Hip: Remove Mepilex dressing at 7 days post op. Remove steristrips at 14 days post op. May shower. No soaking. PT: Partial weight bearing with a walker for 4 weeks. DVT prophylaxis: continue Lovenox for 30 days total Pain medication: Oxycodone Subjective Subjective Date/Time Seen: 07/01/22 16:04 Interval history: Patient resting comfortably in bed. Notes pain at rest. No other complaints. Exam Narrative: Overweight 87 y/o female. Resting comfortably in bed. Not wearing compression socks bilaterally. Dressing dry and intact with no drainage. Mild swelling. No ecchymosis. No erythema. No hematoma. Range of motion limited due to pain. Calf nontender. Thigh nontender. Neurologic status intact. No varicosities. Distal pulses palpable. Objective Data Vital Signs Vital Signs: Vital Signs - 24 hr 06/30/22 22:00 07/01/22 06:00 07/01/22 08:00 Temperature 97.9 F 97.7 F Pulse Rate 108 H 87 Respiratory Rate 18 18 Blood Pressure 103/90 104/71 Pulse Oximetry 90 97 Oxygen Delivery Room Air 07/01/22 14:00 Temperature 97.5 F L Pulse Rate 91 Respiratory Rate 18 Blood Pressure 129/62 Pulse Oximetry 97 Oxygen Delivery Intake/Output Intake/Output: Intake & Output 06/28/22 06/29/22 06/30/22 07/01/22 23:59 23:59 23:59 23:59 Intake Total 1580 1120 2120 390 Output Total 1850 1360 1275 700 Balance -270 -240 845 -310 Meds/Results Medications: Active Medications Generic Name Dose Route Start Last Admin Trade Name Freq PRN Reason Stop Dose Admin Acetaminophen 1,000 mg 06/27/22 14:05 07/01/22 12:15 Acetaminophen 500 Mg Tablet PO Not Given Q6HR ALBER Al Hydrox/Mg Hydrox/Simethicone 30 ml 06/27/22 05:00 Mag Hydrox/Al Hydrox/Simeth 30 Ml Udc PO QID PRN Dyspepsia Alprazolam 0.5 mg 06/27/22 04:59 06/29/22 22:54 Alprazolam (*Crx) 0.5 Mg Tablet PO 0.5 mg TID PRN Administration anxiety Azelastine HCl 1 spray 06/27/22 21:00 06/30/22 22:04 Azelastine Hcl Nasal 0.1% 137 Mcg/Spr 30 Ml Btl NASAL 1 spray HS ALBER Administration Bisacodyl 5 mg 06/27/22 05:00 Bisacodyl 5 Mg Tablet Ec PO DAILY PRN Constipation Cyclobenzaprine HCl 10 mg 06/29/22 12:54 06/30/22 08:32 Cyclobenzaprine Hcl 10 Mg Tablet PO 10 mg Q8H PRN Administration Muscle Spasm Famotidine 20 mg 06/29/22 21:00 07/01/22 08:11 Famotidine 20 Mg Tablet PO 20 mg Q12HR ALBER Administration Fentanyl Citrate 25 mcg 06/28/22 13:11 06/29/22 12:23 Fentanyl Citrate Inj (*Crx) 100 Mcg/2 Ml Vial IV PUSH 25 mcg Q2M PRN Administration Pain Fluticasone Propionate 1 spray 06/27/22 09:00 07/01/22 08:11 Fluticasone Propionate 0.05% Na Spr 16 Gm Btl (*Bkc) NASAL Not Given BID ALBER Heparin Sodium (Porcine) 5,000 units 06/27/22 09:00 07/01/22 08:10 Heparin Sodium 5,000 Units/Ml Vial SUB-Q 5,000 units Q12HR ALBER Administration Lactulose 10 gm 06/27/22 05:08 Lactulose 20 Gm/30 Ml Udc PO DAILY PRN constipation Loratadine/Pseudoephedrine Sulfate 1 tab 06/27/22 05:09 Loratadine/Pseudoephedrine (*Crx) 10/240 Mg Tablet Er 24 Hr P
[2022-07-01] MEDS: ACETAMINOPHEN 500 MG TABLET 1000 MG PO ×2 (17:00→23:43)
[2022-07-01] MEDS: oxyCODONE HCL (*CRX) 5 MG TAB IR PO (17:04)
[2022-07-01 17:18] LABS: Hematocrit 37.9 % (37.0-47.0); Hemoglobin 12.3 g/dL (12.0-15.0); Mean Corpuscular HGB Conc 32.5 g/dl (32-36); Mean Corpuscular Hemoglobin 33.8 pg (26-34); Mean Corpuscular Volume 104.1 fl (80-100); Mean Platelet Volume 8.9 fl (7.4-10.4); Platelet Count Result 222 k/mm3 (150-375); Red Blood Count 3.64 M/mm3 (4.2-5.4); Red Cell Distribution Width 13.1 % (11.5-14.5); White Blood Count 10.9 K/mm3 (4.5-10.0)
--- NOTE | 2022-07-01 17:42 | PM.IMPN ---
Progress Note: A&P Assessment and Plan (1) Closed fracture of neck of left femur: Code(s): S72.002A - Fracture of unspecified part of neck of left femur, initial encounter for closed fracture Status: Acute Plan # left femoral neck fracture - likely underlying osteoporosis. patient was complaining of left hip pain during recent hospitalization, at that time imaging was negative for fracture. perhaps patient was developing this fracture and had an area that was prone to injury. she was treated with steroids and pain control - orthopedics Dr. Akins consulted, performed of hip arthroplasty on June 29 - pain control: Tylenol, [place], morphine patient is unable to ambulate by herself -consult PT OT patient may benefit from rehab placement # other chronic conditions - constipation: At home use lactulose p.r.n. - likely osteoporosis: Continue home vitamin-D supplement - allergies: Continue fluticasone, loratadine - anxiety: Continue home Xanax Diet: Resume with okay for orthopedic surgeon DVT prophylaxis: Will start postop per orthopedic recommendations Code status: Do not resuscitate Disposition: Pending clinical course likely surgery then rehab afterwards Subjective Date/time seen: 07/01/22 17:42 Interval history: Patient resting comfortably in bed. but patient still has difficulty with ambulation with assistance. patient denies chest pain, shortness breast, abdomen pain, nausea vomiting diarrhea, fever, chills Exam Narrative: - GENERAL: pleasant older woman in no acute distress. Well-nourished. - EYES: EOMI. Anicteric. - HENT: Moist mucous membranes. - LUNGS: Clear to auscultation bilaterally, no wheezing, rhonchi, or rales. - CARDIOVASCULAR: Regular rate and rhythm. No murmur. No JVD. - ABDOMEN: Soft, non-tender and non-distended. No palpable masses. - EXTREMITIES: No edema. Peripheral pulses 2+. Non-tender. left hip is restricted with movement, some tender on any manipulation, surgical wound dry and clean - NEUROLOGIC: No focal neurological deficits. CN II-XII grossly intact. - PSYCHIATRIC: Awake, Alert and oriented x 3. intelligent, Appropriate mood and affect. - SKIN: No rashes or lesions. Warm. - LYMPH: No cervical lymphadenopathy. Objective Data Vital Signs Vital Signs: Vital Signs - 24 hr 06/30/22 22:00 07/01/22 06:00 07/01/22 08:00 Temperature 97.9 F 97.7 F Pulse Rate 108 H 87 Respiratory Rate 18 18 Blood Pressure 103/90 104/71 Pulse Oximetry 90 97 Oxygen Delivery Room Air 07/01/22 14:00 Temperature 97.5 F L Pulse Rate 91 Respiratory Rate 18 Blood Pressure 129/62 Pulse Oximetry 97 Oxygen Delivery Intake/Output Intake/Output: Intake & Output 06/28/22 06/29/22 06/30/22 07/01/22 23:59 23:59 23:59 23:59 Intake Total 1580 1120 2120 390 Output Total 1850 1360 1275 700 Balance -270 -240 845 -310 Meds/Results Medications: Active Medications Generic Name Dose Route Start Last Admin Trade Name Freq PRN Reason Stop Dose Admin Acetaminophen 1,000 mg 06/27/22 14:05 07/01/22 17:00 Acetaminophen 500 Mg Tablet PO 1,000 mg Q6HR ALBER Administration Al Hydrox/Mg Hydrox/Simethicone 30 ml 06/27/22 05:00 Mag Hydrox/Al Hydrox/Simeth 30 Ml Udc PO QID PRN Dyspepsia Alprazolam 0.5 mg 06/27/22 04:59 06/29/22 22:54 Alprazolam (*Crx) 0.5 Mg Tablet PO 0.5 mg TID PRN Administration anxiety Azelastine HCl 1 spray 06/27/22 21:00 06/30/22 22:04 Azelastine Hcl Nasal 0.1% 137 Mcg/Spr 30 Ml Btl NASAL 1 spray HS ALBER Administration Bisacodyl 5 mg 06/27/22 05:00 Bisacodyl 5 Mg Tablet Ec PO DAILY PRN Constipation Cyclobenzaprine HCl 10 mg 06/29/22 12:54 06/30/22 08:32 Cyclobenzaprine Hcl 10 Mg Tablet PO 10 mg Q8H PRN Administration Muscle Spasm Famotidine 20 mg 06/29/22 21:00 07/01/22 08:11 Famotidine 20 Mg Tablet PO 20 mg Q12HR ALBER Administration Fentanyl Citrate 25 mcg 01
[2022-07-01] MEDS: ALPRAZolam (*CRX) 0.5 MG TABLET PO (18:28)
[2022-07-01 20:00] VITALS: PULSE 101; RESP 18; O2SAT 97
[2022-07-01] MEDS: AZELASTINE HCL NASAL 0.1% 137 MCG/SPR 30 ML BTL 1 SPRAY NASAL (20:15)
[2022-07-01] MEDS: CYCLOBENZAPRINE HCL 10 MG TABLET PO (20:22)
[2022-07-01 22:00] VITALS: BP 122/58; PULSE 101; RESP 18; TEMP 37; O2SAT 97
[2022-07-02 06:00] VITALS: BP 132/56; PULSE 88; RESP 18; TEMP 36.6; O2SAT 96
[2022-07-02] MEDS: oxyCODONE HCL (*CRX) 5 MG TAB IR 10 MG PO (06:04)
[2022-07-02] MEDS: CYCLOBENZAPRINE HCL 10 MG TABLET PO ×3 (06:04→23:01)
[2022-07-02] MEDS: ACETAMINOPHEN 500 MG TABLET 1000 MG PO ×2 (06:04→17:06)
[2022-07-02 07:42] LABS: Basophils Percent Auto 0.3 % (0.2-1.2); Eosinophils Absolute Auto 0.1 K/mm3 (0-0.3); Eosinophils Percent Auto 0.6 % (0-4.4); Hematocrit 31.1 % (37.0-47.0); Hemoglobin 10.3 g/dL (12.0-15.0); Immature Granulocyte Absolute 0.03 K/mm3 (0.00-0.031); Immature Granulocyte Percent A 0.4 % (0-0.5); Lymphocytes Absolute Auto 0.61 K/mm3 (0.9-3.2); Lymphocytes Percent Auto 7.8 % (18.3-44.2); Mean Corpuscular HGB Conc 33.1 g/dl (32-36); Mean Corpuscular Hemoglobin 34.2 pg (26-34); Mean Corpuscular Volume 103.3 fl (80-100); Mean Platelet Volume 8.8 fl (7.4-10.4); Monocytes Absolute Auto 0.8 K/mm3 (0.1-0.6); Monocytes Percent Auto 10.6 % (2.6-8.5); Neutrophils Absolute Auto 6.3 K/mm3 (1.3-6.7); Neutrophils Percent Auto 80.3 % (45.5-73.1); Platelet Count Result 212 k/mm3 (150-375); Red Blood Count 3.01 M/mm3 (4.2-5.4); Red Cell Distribution Width 13.2 % (11.5-14.5); White Blood Count 7.9 K/mm3 (4.5-10.0)
[2022-07-02 08:08] LABS: Alanine Aminotransferase 33 U/L (6-35); Albumin Level 3.1 g/dL (3.5-5.1); Alkaline Phosphatase 207 U/L (38-126); Anion Gap 4 mmol/L (8-16); Aspartate Amino Transferase 51 U/L (14-36); Bilirubin,Total 0.8 mg/dL (0.2-1.3); Blood Urea Nitrogen 13 mg/dL (7-17); Calcium 8.4 mg/dL (8.4-10.2); Carbon Dioxide 26 mmol/L (22-30); Chloride 101 mmol/L (98-107); Estimated CRCL calculation 60 ml/min; Estimated Glomerular Filt Rate > 60; Glucose 102 mg/dL (65-110); Potassium 3.8 mmol/L (3.4-5.0); Sodium 131 mmol/L (137-145)
[2022-07-02] MEDS: FLUTICASONE PROPIONATE 0.05% NA SPR 16 GM BTL (*BKC) 1 SPRAY NASAL ×2 (08:10→17:06)
[2022-07-02] MEDS: polyethylene glycoL 3350 17 GM POWD.PACK PO (08:11)
[2022-07-02] MEDS: HEPARIN SODIUM 5,000 UNITS/ML VIAL 5000 UNITS SUB-Q ×2 (08:11→20:00)
[2022-07-02] MEDS: SENNA/DOCUSATE SODIUM TABLET 2 TAB PO ×2 (08:12→17:06)
[2022-07-02] MEDS: CHOLECALCIFEROL 1,000 UNITS TABLET 3000 UNITS PO (08:12)
[2022-07-02] MEDS: FAMOTIDINE 20 MG TABLET PO ×2 (08:12→20:00)
--- NOTE | 2022-07-02 11:07 | PCOTNOTE ---
Attempted to see pt for occupational therapy treatment today. Pt declined to participate in therapeutic activities and/or self care tasks. Pt also declined to get out of bed at this time stating I just got back into bed and and am not going to do anything that is causing pain... . Pt was educated on the importance of continued therapy participation for independence. Pt verbally agrees, however, continues to refuse. Will continue per poc duration/frequency tomorrow.
[2022-07-02 14:00] VITALS: BP 139/59; PULSE 88; RESP 18; TEMP 36.5; O2SAT 99
[2022-07-02] MEDS: ALPRAZolam (*CRX) 0.5 MG TABLET PO ×3 (14:30→20:00)
--- NOTE | 2022-07-02 15:39 | PM.IMPN ---
Progress Note: A&P Assessment and Plan (1) Closed fracture of neck of left femur: Code(s): S72.002A - Fracture of unspecified part of neck of left femur, initial encounter for closed fracture Status: Acute (2) Hyponatremia: Code(s): E87.1 - Hypo-osmolality and hyponatremia Status: Acute Plan # left femoral neck fracture - likely underlying osteoporosis. patient was complaining of left hip pain during recent hospitalization, at that time imaging was negative for fracture. perhaps patient was developing this fracture and had an area that was prone to injury. she was treated with steroids and pain control - orthopedics Dr. Akins consulted, performed of hip arthroplasty on June 29 - pain control: Tylenol, [place], morphine patient is unable to ambulate by herself -consult PT OT patient may benefit from rehab placement # other chronic conditions - constipation: At home use lactulose p.r.n. - likely osteoporosis: Continue home vitamin-D supplement - allergies: Continue fluticasone, loratadine - anxiety: Continue home Xanax -hyponatremia. Replete w/ sodium chloride 1 g b.i.d. p.o. Diet: Resume with okay for orthopedic surgeon DVT prophylaxis: Will start postop per orthopedic recommendations Code status: Do not resuscitate Disposition: Pending clinical course likely surgery then rehab afterwards Subjective Date/time seen: 07/02/22 15:39 Saw and examined the patient. Patient needs assistance for ambulation. Denies chest pain, shortness of breath, abdominal pain, nausea vomiting diarrhea Exam Narrative: - GENERAL: pleasant older woman in no acute distress. Well-nourished. - EYES: EOMI. Anicteric. - HENT: Moist mucous membranes. - LUNGS: Clear to auscultation bilaterally, no wheezing, rhonchi, or rales. - CARDIOVASCULAR: Regular rate and rhythm. No murmur. No JVD. - ABDOMEN: Soft, non-tender and non-distended. No palpable masses. - EXTREMITIES: No edema. Peripheral pulses 2+. Non-tender. left hip is restricted with movement, some tender on any manipulation, surgical wound dry and clean - NEUROLOGIC: No focal neurological deficits. CN II-XII grossly intact. - PSYCHIATRIC: Awake, Alert and oriented x 3. intelligent, Appropriate mood and affect. - SKIN: No rashes or lesions. Warm. - LYMPH: No cervical lymphadenopathy. Objective Data Vital Signs Vital Signs: Vital Signs - 24 hr 07/01/22 22:00 07/01/22 20:00 07/02/22 06:00 Temperature 98.6 F 97.8 F Pulse Rate 101 H 101 H 88 Respiratory Rate 18 18 18 Blood Pressure 122/58 L 132/56 L Pulse Oximetry 97 97 96 Oxygen Delivery Room Air 07/02/22 08:00 07/02/22 14:00 Temperature 97.7 F Pulse Rate 88 Respiratory Rate 18 Blood Pressure 139/59 L Pulse Oximetry 99 Oxygen Delivery Room Air Intake/Output Intake/Output: Intake & Output 06/29/22 06/30/22 07/01/22 07/02/22 23:59 23:59 23:59 23:59 Intake Total 1120 2120 1230 580 Output Total 1360 1275 1350 0 Balance -240 845 -120 580 Meds/Results Medications: Active Medications Generic Name Dose Route Start Last Admin Trade Name Freq PRN Reason Stop Dose Admin Acetaminophen 1,000 mg 06/27/22 14:05 07/02/22 11:51 Acetaminophen 500 Mg Tablet PO Not Given Q6HR ALBER Al Hydrox/Mg Hydrox/Simethicone 30 ml 06/27/22 05:00 Mag Hydrox/Al Hydrox/Simeth 30 Ml Udc PO QID PRN Dyspepsia Alprazolam 0.5 mg 06/27/22 04:59 07/02/22 14:30 Alprazolam (*Crx) 0.5 Mg Tablet PO 0.5 mg TID PRN Administration anxiety Azelastine HCl 1 spray 06/27/22 21:00 07/01/22 20:15 Azelastine Hcl Nasal 0.1% 137 Mcg/Spr 30 Ml Btl NASAL 1 spray HS ALBER Administration Bisacodyl 5 mg 06/27/22 05:00 Bisacodyl 5 Mg Tablet Ec PO DAILY PRN Constipation Cyclobenzaprine HCl 10 mg 06/29/22 12:54 07/02/22 14:30 Cyclobenzaprine Hcl 10 Mg Tablet PO 10 mg Q8H PRN Administration Muscle Spasm Famotidine 20 mg 06/29/22 21:00
[2022-07-02] MEDS: SODIUM CHLORIDE 1 GM TABLET PO (17:06)
[2022-07-02] MEDS: AZELASTINE HCL NASAL 0.1% 137 MCG/SPR 30 ML BTL 1 SPRAY NASAL (20:00)
[2022-07-02 22:00] VITALS: BP 133/50; PULSE 98; RESP 18; TEMP 36.5; O2SAT 98
[2022-07-03] MEDS: ACETAMINOPHEN 500 MG TABLET 1000 MG PO ×2 (05:18→12:53)
[2022-07-03 05:32] VITALS: BP 120/51; PULSE 88; RESP 16; TEMP 36.8; O2SAT 94
[2022-07-03 06:33] LABS: Hematocrit 29.1 % (37.0-47.0); Hemoglobin 9.8 g/dL (12.0-15.0); Mean Corpuscular HGB Conc 33.7 g/dl (32-36); Mean Corpuscular Hemoglobin 33.4 pg (26-34); Mean Corpuscular Volume 99.3 fl (80-100); Mean Platelet Volume 8.6 fl (7.4-10.4); Platelet Count Result 262 k/mm3 (150-375); Red Blood Count 2.93 M/mm3 (4.2-5.4); Red Cell Distribution Width 13.1 % (11.5-14.5)
[2022-07-03 07:01] LABS: Anion Gap 5 mmol/L (8-16); Blood Urea Nitrogen 13 mg/dL (7-17); Calcium 8.5 mg/dL (8.4-10.2); Carbon Dioxide 26 mmol/L (22-30); Chloride 102 mmol/L (98-107); Estimated CRCL calculation 60 ml/min; Estimated Glomerular Filt Rate > 60; Glucose 104 mg/dL (65-110); Potassium 3.4 mmol/L (3.4-5.0); Sodium 133 mmol/L (137-145)
[2022-07-03] MEDS: HEPARIN SODIUM 5,000 UNITS/ML VIAL 5000 UNITS SUB-Q ×2 (08:56→21:07)
[2022-07-03] MEDS: FLUTICASONE PROPIONATE 0.05% NA SPR 16 GM BTL (*BKC) 1 SPRAY NASAL (08:57)
[2022-07-03] MEDS: ALPRAZolam (*CRX) 0.5 MG TABLET PO ×3 (08:58→21:07)
[2022-07-03] MEDS: CHOLECALCIFEROL 1,000 UNITS TABLET 3000 UNITS PO (08:58)
[2022-07-03] MEDS: polyethylene glycoL 3350 17 GM POWD.PACK PO (08:58)
[2022-07-03] MEDS: SODIUM CHLORIDE 1 GM TABLET PO ×2 (08:59→15:29)
[2022-07-03] MEDS: FAMOTIDINE 20 MG TABLET PO ×2 (08:59→21:07)
[2022-07-03] MEDS: CYCLOBENZAPRINE HCL 10 MG TABLET PO ×2 (08:59→15:29)
[2022-07-03] MEDS: SENNA/DOCUSATE SODIUM TABLET 2 TAB PO ×2 (08:59→15:29)
--- NOTE | 2022-07-03 10:18 | PC.NURSE ---
I received a call from the PT/OT therapist stating that pt was combative, angry, and overly aggressive. The therapist stated she was worried that pt was going to punch her, or anyone who attempted to get pt to do any type of physical activity. The therapist also stated that she was concerned for her safety if she continued working with pt and was wanting to stop current session as a result. The therapist also explained that pt was refusing to try or to move and required anyone working with her to push and pull and do all the movement for pt (this is also what the night and day techs stated when attempting to transfer pt to the bedside commode).
--- NOTE | 2022-07-03 10:36 | PCPTNOTE ---
Patient became aggravated with exercises this date. When discussing getting up to chair patient refused and states she wants to be left alone. Patient became comparative with exercises saying I can do it but i am not going to do . Patient kicking legs and showing irritation with staff with attempting lower extremity exercises. Held on transfers this date due to not being safe and appropriate at this time. RN notified of patient status.
[2022-07-03 14:00] VITALS: BP 100/64; PULSE 91; RESP 18; TEMP 36.7; O2SAT 98
[2022-07-03] MEDS: oxyCODONE HCL (*CRX) 5 MG TAB IR 10 MG PO (15:29)
--- NOTE | 2022-07-03 18:23 | PM.IMPN ---
Progress Note: A&P Assessment and Plan (1) Closed fracture of neck of left femur: Code(s): S72.002A - Fracture of unspecified part of neck of left femur, initial encounter for closed fracture Status: Acute (2) Hyponatremia: Code(s): E87.1 - Hypo-osmolality and hyponatremia Status: Acute Plan # left femoral neck fracture - likely underlying osteoporosis. patient was complaining of left hip pain during recent hospitalization, at that time imaging was negative for fracture. perhaps patient was developing this fracture and had an area that was prone to injury. she was treated with steroids and pain control - orthopedics Dr. Akins consulted, performed of hip arthroplasty on June 29 - pain control: Tylenol, [place], morphine patient is unable to ambulate by herself -consult PT OT patient benefit from rehab placement. plans to dc to rehab on Monday. they dont accept pt during the weekend # other chronic conditions - constipation: At home use lactulose p.r.n. - likely osteoporosis: Continue home vitamin-D supplement - allergies: Continue fluticasone, loratadine - anxiety: Continue home Xanax -hyponatremia. Replete w/ sodium chloride 1 g b.i.d. p.o. improving Diet: Resume with okay for orthopedic surgeon DVT prophylaxis: Will start postop per orthopedic recommendations Code status: Do not resuscitate Disposition: Pending clinical course likely surgery then rehab afterwards Subjective Date/time seen: 07/03/22 18:23 Interval history: Patient resting comfortably in chair. t patient still has difficulty with ambulation with assistance because of pain of left hip. patient denies chest pain, shortness breast, abdomen pain, nausea vomiting diarrhea, fever, chills Exam Narrative: - GENERAL: pleasant older woman in no acute distress. Well-nourished. - EYES: EOMI. Anicteric. - HENT: Moist mucous membranes. - LUNGS: Clear to auscultation bilaterally, no wheezing, rhonchi, or rales. - CARDIOVASCULAR: Regular rate and rhythm. No murmur. No JVD. - ABDOMEN: Soft, non-tender and non-distended. No palpable masses. - EXTREMITIES: No edema. Peripheral pulses 2+. Non-tender. left hip is restricted with movement, some tender on any manipulation, surgical wound dry and clean - NEUROLOGIC: No focal neurological deficits. CN II-XII grossly intact. - PSYCHIATRIC: Awake, Alert and oriented x 3. intelligent, Appropriate mood and affect. - SKIN: No rashes or lesions. Warm. - LYMPH: No cervical lymphadenopathy. Objective Data Vital Signs Vital Signs: Vital Signs - 24 hr 07/02/22 22:00 07/02/22 20:00 07/03/22 05:32 Temperature 97.7 F 98.2 F Pulse Rate 98 88 Respiratory Rate 18 16 Blood Pressure 133/50 L 120/51 L Pulse Oximetry 98 94 Oxygen Delivery Room Air 07/03/22 08:00 07/03/22 14:00 Temperature 98.1 F Pulse Rate 91 Respiratory Rate 18 Blood Pressure 100/64 Pulse Oximetry 98 Oxygen Delivery Room Air Intake/Output Intake/Output: Intake & Output 06/30/22 07/01/22 07/02/22 07/03/22 23:59 23:59 23:59 23:59 Intake Total 2120 1230 1200 220 Output Total 1275 1350 0 400 Balance 845 -120 1200 -180 Meds/Results Medications: Active Medications Generic Name Dose Route Start Last Admin Trade Name Freq PRN Reason Stop Dose Admin Acetaminophen 1,000 mg 06/27/22 14:05 07/03/22 15:30 Acetaminophen 500 Mg Tablet PO Not Given Q6HR ALBER Al Hydrox/Mg Hydrox/Simethicone 30 ml 06/27/22 05:00 Mag Hydrox/Al Hydrox/Simeth 30 Ml Udc PO QID PRN Dyspepsia Alprazolam 0.5 mg 06/27/22 04:59 07/03/22 15:29 Alprazolam (*Crx) 0.5 Mg Tablet PO 0.5 mg TID PRN Administration anxiety Azelastine HCl 1 spray 06/27/22 21:00 07/02/22 20:00 Azelastine Hcl Nasal 0.1% 137 Mcg/Spr 30 Ml Btl NASAL 1 spray HS ALBER Administration Bisacodyl 5 mg 06/27/22 05:00 Bisacodyl 5 Mg Tablet Ec PO DAILY PRN Constipation Cyclobenzaprine HC
[2022-07-03] MEDS: AZELASTINE HCL NASAL 0.1% 137 MCG/SPR 30 ML BTL 1 SPRAY NASAL (21:07)
[2022-07-03 21:13] VITALS: BP 123/58; PULSE 79; RESP 22; TEMP 36.6; O2SAT 95
[2022-07-04 05:34] VITALS: BP 117/57; PULSE 86; RESP 18; TEMP 36.8; O2SAT 99
[2022-07-04 06:56] LABS: Hematocrit 29.7 % (37.0-47.0); Hemoglobin 9.6 g/dL (12.0-15.0); Mean Corpuscular HGB Conc 32.3 g/dl (32-36); Mean Corpuscular Hemoglobin 33.9 pg (26-34); Mean Corpuscular Volume 104.9 fl (80-100); Mean Platelet Volume 8.7 fl (7.4-10.4); Platelet Count Result 303 k/mm3 (150-375); Red Blood Count 2.83 M/mm3 (4.2-5.4); Red Cell Distribution Width 13.2 % (11.5-14.5); White Blood Count 4.9 K/mm3 (4.5-10.0)
[2022-07-04 06:59] LABS: Anion Gap 4 mmol/L (8-16); Blood Urea Nitrogen 16 mg/dL (7-17); Calcium 8.4 mg/dL (8.4-10.2); Carbon Dioxide 27 mmol/L (22-30); Chloride 100 mmol/L (98-107); Estimated CRCL calculation 60 ml/min; Estimated Glomerular Filt Rate > 60; Glucose 93 mg/dL (65-110); Potassium 3.3 mmol/L (3.4-5.0); Sodium 131 mmol/L (137-145)
[2022-07-04] MEDS: FAMOTIDINE 20 MG TABLET PO ×2 (09:59→20:27)
[2022-07-04] MEDS: SENNA/DOCUSATE SODIUM TABLET 2 TAB PO ×2 (09:59→19:04)
[2022-07-04] MEDS: FLUTICASONE PROPIONATE 0.05% NA SPR 16 GM BTL (*BKC) 1 SPRAY NASAL ×2 (10:00→19:04)
[2022-07-04] MEDS: HEPARIN SODIUM 5,000 UNITS/ML VIAL 5000 UNITS SUB-Q ×2 (10:00→20:27)
[2022-07-04] MEDS: CHOLECALCIFEROL 1,000 UNITS TABLET 3000 UNITS PO (10:00)
[2022-07-04] MEDS: polyethylene glycoL 3350 17 GM POWD.PACK PO (10:00)
[2022-07-04] MEDS: SODIUM CHLORIDE 1 GM TABLET PO ×2 (10:00→19:04)
--- NOTE | 2022-07-04 13:14 | PM.DS ---
DS: Discharge Diagnosis Discharge Diagnosis (1) Closed fracture of neck of left femur: Code(s): S72.002A - Fracture of unspecified part of neck of left femur, initial encounter for closed fracture Status: Acute (2) Hyponatremia: Code(s): E87.1 - Hypo-osmolality and hyponatremia Status: Acute Plan # left femoral neck fracture - likely underlying osteoporosis. patient was complaining of left hip pain during recent hospitalization, at that time imaging was negative for fracture. perhaps patient was developing this fracture and had an area that was prone to injury. she was treated with steroids and pain control - orthopedics Dr. Akins consulted, performed of hip arthroplasty on June 29 - pain control: Tylenol, [place], morphine patient is unable to ambulate by herself -consult PT OT patient benefit from rehab placement. plans to dc to rehab on Monday. they dont accept pt during the weekend # other chronic conditions - constipation: At home use lactulose p.r.n. - likely osteoporosis: Continue home vitamin-D supplement - allergies: Continue fluticasone, loratadine - anxiety: Continue home Xanax -hyponatremia. Replete w/ sodium chloride 1 g b.i.d. p.o. improving Diet: Resume with okay for orthopedic surgeon DVT prophylaxis: Will start postop per orthopedic recommendations Code status: Do not resuscitate Disposition: Pending clinical course likely surgery then rehab afterwards DS: Summary Time Spent with Patient Time attestation: Total time spent providing and/or coordinating discharge services: Exam Narrative: - GENERAL: pleasant older woman in no acute distress. Well-nourished. - EYES: EOMI. Anicteric. - HENT: Moist mucous membranes. - LUNGS: Clear to auscultation bilaterally, no wheezing, rhonchi, or rales. - CARDIOVASCULAR: Regular rate and rhythm. No murmur. No JVD. - ABDOMEN: Soft, non-tender and non-distended. No palpable masses. - EXTREMITIES: No edema. Peripheral pulses 2+. Non-tender. left hip is restricted with movement, some tender on any manipulation, surgical wound dry and clean - NEUROLOGIC: No focal neurological deficits. CN II-XII grossly intact. - PSYCHIATRIC: Awake, Alert and oriented x 3. intelligent, Appropriate mood and affect. - SKIN: No rashes or lesions. Warm. - LYMPH: No cervical lymphadenopathy. DS: Data Data Completed and Pending Labs on day of discharge: Labs from last 24 hours 07/04/22 07/04/22 06:20 06:20 WBC 4.9 RBC 2.83 L Hgb 9.6 L Hct 29.7 L MCV 104.9 H D MCH 33.9 MCHC 32.3 RDW 13.2 Plt Count 303 MPV 8.7 Sodium 131 L Potassium 3.3 L Chloride 100 Carbon Dioxide 27 Anion Gap 4 L BUN 16 Creatinine 0.60 L Estim Creat Clear Calc 60 Estimated GFR > 60 Glucose 93 Calcium 8.4 Discharge Plan Discharge Consulting providers: Cruz Akins Discharge Instructions: Ortho instructions: (DOS: 06/29/21) D/C to SNF/rehab Follow up in 4 weeks with xrays in the office. Please call for appointment. [facility] Wound Care: Hip: Remove Mepilex dressing at 7 days post op. Remove steristrips at 14 days post op. May shower. No soaking. PT: Partial weight bearing with a walker for 4 weeks. DVT prophylaxis: continue Lovenox for 30 days total Pain medication: Oxycodone Patient Instructions: Pain Management (DC) Discharge Medications: No Action cholecalciferol (vitamin D3) 75 mcg (3,000 unit) tablet 75 mcg PO DAILY fluticasone propionate 50 mcg/actuation spray,suspension 1 spray intranasal BID Qty: 30 3RF Rx Instructions: administer into each nostril oxycodone-acetaminophen [Percocet] 5-325 mg tablet 1 - 2 tablet PO Q4H MDD 8 tablets PRN (Reason: pain) alprazolam [Xanax] 0.5 mg tablet 0.5 mg PO TID PRN (Reason: anxiety) azelastine 137 mcg (0.1 %) aerosol,spray 1 spray intranasal DAILY lactulose 10 gram/15 mL solution
[2022-07-04] MEDS: oxyCODONE HCL (*CRX) 5 MG TAB IR 10 MG PO ×2 (13:38→19:07)
[2022-07-04] MEDS: ACETAMINOPHEN 500 MG TABLET 1000 MG PO ×2 (13:39→19:04)
[2022-07-04] MEDS: POTASSIUM CHLORIDE 20 MEQ TABLET 40 MEQ PO (13:44)
[2022-07-04 14:00] VITALS: BP 130/50; PULSE 85; RESP 16; TEMP 36.3; O2SAT 96
--- NOTE | 2022-07-04 14:28 | PM.IMPN ---
Progress Note: A&P Assessment and Plan (1) Closed fracture of neck of left femur: Code(s): S72.002A - Fracture of unspecified part of neck of left femur, initial encounter for closed fracture Status: Acute Assessment and Plan: orthopedics Dr. Akins consulted, performed of hip arthroplasty on June 29 pain controlled with oxycodone 10 mg every 4-6 hours as needed, she was on Percocet 5 mg every 4-6 hours at baseline prior to surgery patient is unable to ambulate by herself consult PT OT patient would benefit from rehab placement (2) Hyponatremia: Code(s): E87.1 - Hypo-osmolality and hyponatremia Status: Acute Assessment and Plan: hyponatremia. Replete w/sodium chloride 1 g b.i.d. p.o. improving, recheck in 1 week Plan constipation: At home use lactulose p.r.n. likely osteoporosis: Continue home vitamin-D supplement allergies: Continue fluticasone, loratadine anxiety: Continue home Xanax Diet: regular, tolerating DVT prophylaxis: lovenox until 30 days postop, end date Jul 29, 2022 Code status: Do not resuscitate Subjective Date/time seen: 07/04/22 14:28 Interval history: No overnight events noted. No chest pain or shortness of breath. No nausea, vomiting or diarrhea. No fevers or chills. pain controlled. Long discussion with family in the room, patient and family are refusing to be discharged [facility]. Discharge order canceled, care coordination notified. Review of Systems Review of Systems: 12 point review of systems was assessed and was negative except as noted in the HPI Exam Narrative: - GENERAL: pleasant older woman in no acute distress. Well-nourished. - EYES: EOMI. Anicteric. - HENT: Moist mucous membranes. - LUNGS: Clear to auscultation bilaterally, no wheezing, rhonchi, or rales. - CARDIOVASCULAR: Regular rate and rhythm. No murmur. No JVD. - ABDOMEN: Soft, non-tender and non-distended. No palpable masses. - EXTREMITIES: No edema. Peripheral pulses 2+. Non-tender. left hip is restricted with movement, some tender on any manipulation, surgical wound dry and clean - NEUROLOGIC: No focal neurological deficits. CN II-XII grossly intact. - PSYCHIATRIC: Awake, Alert and oriented x 3. intelligent, Appropriate mood and affect. - SKIN: No rashes or lesions. Warm. - LYMPH: No cervical lymphadenopathy. Objective Data Vital Signs Vital Signs: Vital Signs - 24 hr 07/03/22 21:13 07/03/22 20:00 07/04/22 05:34 Temperature 97.9 F 98.2 F Pulse Rate 79 86 Respiratory Rate 22 H 18 Blood Pressure 123/58 L 117/57 L Pulse Oximetry 95 99 Oxygen Delivery Room Air Intake/Output Intake/Output: Intake & Output 07/01/22 07/02/22 07/03/22 07/04/22 23:59 23:59 23:59 23:59 Intake Total 1230 1200 220 510 Output Total 1350 0 400 Balance -120 1200 -180 510 Meds/Results Medications: Active Medications Generic Name Dose Route Start Last Admin Trade Name Freq PRN Reason Stop Dose Admin Acetaminophen 1,000 mg 06/27/22 14:05 07/04/22 13:39 Acetaminophen 500 Mg Tablet PO 1,000 mg Q6HR ALBER Administration Al Hydrox/Mg Hydrox/Simethicone 30 ml 06/27/22 05:00 Mag Hydrox/Al Hydrox/Simeth 30 Ml Udc PO QID PRN Dyspepsia Alprazolam 0.5 mg 06/27/22 04:59 07/03/22 21:07 Alprazolam (*Crx) 0.5 Mg Tablet PO 0.5 mg TID PRN Administration anxiety Azelastine HCl 1 spray 06/27/22 21:00 07/03/22 21:07 Azelastine Hcl Nasal 0.1% 137 Mcg/Spr 30 Ml Btl NASAL 1 spray HS ALBER Administration Bisacodyl 5 mg 06/27/22 05:00 Bisacodyl 5 Mg Tablet Ec PO DAILY PRN Constipation Cyclobenzaprine HCl 10 mg 06/29/22 12:54 07/03/22 15:29 Cyclobenzaprine Hcl 10 Mg Tablet PO 10 mg Q8H PRN Administration Muscle Spasm Famotidine 20 mg 06/29/22 21:00 07/04/22 09:59 Famotidine 20 Mg Tablet PO 20 mg Q12HR ALBER Administration Fluticasone Propionate 1 spray 06/27/22 09:00
--- NOTE | 2022-07-04 14:34 | PM.DS ---
DS: Admitting Diagnosis Discharge Date 07/04/22 Admitting Diagnosis leg pain DS: Discharge Diagnosis Discharge Diagnosis (1) Closed fracture of neck of left femur: Code(s): S72.002A - Fracture of unspecified part of neck of left femur, initial encounter for closed fracture Status: Acute Assessment and Plan: orthopedics Dr. Akins consulted, performed of hip arthroplasty on June 29 pain controlled with oxycodone 10 mg every 4-6 hours as needed, she was on Percocet 5 mg every 4-6 hours at baseline prior to surgery patient is unable to ambulate by herself consult PT OT patient would benefit from rehab placement (2) Hyponatremia: Code(s): E87.1 - Hypo-osmolality and hyponatremia Status: Acute Assessment and Plan: hyponatremia. Replete w/sodium chloride 1 g b.i.d. p.o. improving, recheck in 1 week Plan constipation: At home use lactulose p.r.n. likely osteoporosis: Continue home vitamin-D supplement allergies: Continue fluticasone, loratadine anxiety: Continue home Xanax Diet: regular, tolerating DVT prophylaxis: lovenox until 30 days postop, end date Jul 29, 2022 Code status: Do not resuscitate DS: Summary Hospital Course Hospital Course: 87-year-old female with past medical history? of breast cancer, generalized anxiety disorder, GERD, essential hypertension, history of lymphoma who presents ED with left hip pain.? Of note patient was recently hospitalized from 06/16/2022- 06/20/22 with similar complaints.? At that time imaging was negative for fracture and patient was told she had pain likely secondary to osteoarthritis and was given prednisone and pain meds on discharge.? 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 which was thought to be unrelated. she work with PT and OT.? She did with home med now presents from home with worsening left hip pain for last 2 days.? She has been taking Percocet for pain control which appears not to be helping anymore. ?In the ED:? CT pelvis shows signs of left femoral neck fracture. orthopedics Dr. Akins was consulted.? patient to be admitted for acute left femoral neck fracture. patient was taken to the OR on June 29. She did well postoperatively. Pain control with oxycodone. No complications. She was discharged in stable condition to outpatient rehab facility. Time Spent with Patient Time attestation: Total time spent providing and/or coordinating discharge services: DS: Data Data Completed and Pending Labs on day of discharge: Labs from last 24 hours 07/04/22 07/04/22 06:20 06:20 WBC 4.9 RBC 2.83 L Hgb 9.6 L Hct 29.7 L MCV 104.9 H D MCH 33.9 MCHC 32.3 RDW 13.2 Plt Count 303 MPV 8.7 Sodium 131 L Potassium 3.3 L Chloride 100 Carbon Dioxide 27 Anion Gap 4 L BUN 16 Creatinine 0.60 L Estim Creat Clear Calc 60 Estimated GFR > 60 Glucose 93 Calcium 8.4 Discharge Plan Discharge Attending physician on discharge: Florecita Roberto Consulting providers: Cruz Akins Discharging Clinician: Florecita Roberto Patient Disposition: SNF Activity: other - see discharge instructions Diet: as tolerated Discharge Instructions: Ortho instructions: (DOS: 06/29/21) D/C to SNF/rehab Follow up in 4 weeks with xrays in the office. Please call for appointment. [facility] Wound Care: Hip: Remove Mepilex dressing at 7 days post op. Remove steristrips at 14 days post op. May shower. No soaking. PT: Partial weight bearing with a walker for 4 weeks. DVT prophylaxis: continue Lovenox for 30 days total Pain medication: Oxycodone Patient Instructions: Pain Management (DC) Stand Alone Forms: General Discharge Information Discharge Medications: New oxycodone 5 mg Tablet 5 mg PO Q4H PRN (Reason: Pain Rated 4-6) Qty: 14 0RF famotidine 20 mg Tablet 20 mg PO Q12HR 30 Days Qty: 60 0RF polyethylene g
--- NOTE | 2022-07-04 16:56 | PM.PNORT ---
Progress Note: A&P Assessment and Plan (1) Closed fracture of neck of left femur: Code(s): S72.002A - Fracture of unspecified part of neck of left femur, initial encounter for closed fracture Status: Acute Plan Status post left total hip arthroplasty. Complicated by need for abductor muscle repair. Initial early pain and poor mobility is improving. I answered her questions. She is able to move her leg more independently and with less pain. Okay to go to rehab when ready. Subjective Subjective Date/Time Seen: 07/04/22 16:56 Interval history: Pain control is much improved. Spirits are up. Exam Narrative: Wound healing nicely without drainage. No erythema or ecchymosis. No significant swelling. Thigh soft. Calf soft. No hematoma. Wiggles toes with good strength. Capillary refill brisk. No edema. Objective Data Vital Signs Vital Signs: Vital Signs - 24 hr 07/03/22 21:13 07/03/22 20:00 07/04/22 05:34 Temperature 36.6 C 36.8 C Pulse Rate 79 86 Respiratory Rate 22 H 18 Blood Pressure 123/58 L 117/57 L Pulse Oximetry 95 99 Oxygen Delivery Room Air 07/04/22 14:00 Temperature 36.3 C L Pulse Rate 85 Respiratory Rate 16 Blood Pressure 130/50 L Pulse Oximetry 96 Oxygen Delivery Intake/Output Intake/Output: Intake & Output 07/01/22 07/02/22 07/03/22 07/04/22 23:59 23:59 23:59 23:59 Intake Total 1230 1200 220 510 Output Total 1350 0 400 Balance -120 1200 -180 510 Meds/Results Medications: Active Medications Generic Name Dose Route Start Last Admin Trade Name Freq PRN Reason Stop Dose Admin Acetaminophen 1,000 mg 06/27/22 14:05 07/04/22 13:39 Acetaminophen 500 Mg Tablet PO 1,000 mg Q6HR ALBER Administration Al Hydrox/Mg Hydrox/Simethicone 30 ml 06/27/22 05:00 Mag Hydrox/Al Hydrox/Simeth 30 Ml Udc PO QID PRN Dyspepsia Alprazolam 0.5 mg 06/27/22 04:59 07/03/22 21:07 Alprazolam (*Crx) 0.5 Mg Tablet PO 0.5 mg TID PRN Administration anxiety Azelastine HCl 1 spray 06/27/22 21:00 07/03/22 21:07 Azelastine Hcl Nasal 0.1% 137 Mcg/Spr 30 Ml Btl NASAL 1 spray HS ALBER Administration Bisacodyl 5 mg 06/27/22 05:00 Bisacodyl 5 Mg Tablet Ec PO DAILY PRN Constipation Cyclobenzaprine HCl 10 mg 06/29/22 12:54 07/03/22 15:29 Cyclobenzaprine Hcl 10 Mg Tablet PO 10 mg Q8H PRN Administration Muscle Spasm Famotidine 20 mg 06/29/22 21:00 07/04/22 09:59 Famotidine 20 Mg Tablet PO 20 mg Q12HR ALBER Administration Fluticasone Propionate 1 spray 06/27/22 09:00 07/04/22 10:00 Fluticasone Propionate 0.05% Na Spr 16 Gm Btl (*Bkc) NASAL 1 spray BID ALBER Administration Heparin Sodium (Porcine) 5,000 units 06/27/22 09:00 07/04/22 10:00 Heparin Sodium 5,000 Units/Ml Vial SUB-Q 5,000 units Q12HR ALBER Administration Lactulose 10 gm 06/27/22 05:08 Lactulose 20 Gm/30 Ml Udc PO DAILY PRN constipation Loratadine/Pseudoephedrine Sulfate 1 tab 06/27/22 05:09 Loratadine/Pseudoephedrine (*Crx) 10/240 Mg Tablet Er 24 Hr PO DAILY PRN sinus symptoms Morphine Sulfate 2 mg 06/27/22 05:00 06/29/22 13:20 Morphine Sulfate (*Crx) 2 Mg/Ml Inj IV PUSH 2 mg Q4H PRN Administration Pain Rated 7-10 Naloxone HCl 0.1 mg 06/27/22 05:00 Naloxone Hcl 0.4 Mg/Ml Vial IV PUSH Q2M PRN Opiate Reversal Naloxone HCl 0.1 mg 06/29/22 12:54 Naloxone Hcl 0.4 Mg/Ml Vial IV PUSH Q2M PRN Opiate Reversal Ondansetron HCl 4 mg 06/27/22 05:00 Ondansetron Inj 4 Mg/2 Ml Vial IV PUSH Q6H PRN Nausea And Vomiting Ondansetron HCl 4 mg 06/28/22 13:11 Ondansetron Inj 4 Mg/2 Ml Vial IV PUSH ONCE PRN Nausea Oxycodone HCl 5 mg 06/27/22 13:52 07/01/22 17:04 Oxycodone Hcl (*Crx) 5 Mg Tab Ir PO 5 mg Q4H PRN Administration Pain Rated 4-6 Oxycodone HCl 10 mg 06/27/22 13:53 07/04/22 13:38 Oxycodone Hcl (*
[2022-07-04 17:04] LABS: EDCOVIDSCREEN Negative (Negative)
[2022-07-04] MEDS: ALPRAZolam (*CRX) 0.5 MG TABLET PO (19:07)
[2022-07-04] MEDS: AZELASTINE HCL NASAL 0.1% 137 MCG/SPR 30 ML BTL 1 SPRAY NASAL (20:27)
== END 2022-07-04 21:20 | DRG 522 ==
LOC: ANHED 22:53 → ANH3MEDSUR 06-27 03:10
PROVIDERS: Hospitalist; Orthopaedic Surgery; Physician Assistant Surgical; Admitting Provider Student in an Organized Health Care Education/Training Program; Emergency Provider Emergency Medicine; PCP Family Medicine; Visit Provider Student in an Organized Health Care Education/Training Program
PROC: 0SRB04A Replacement of Left Hip Joint with Ceramic on Polyethylene Synthetic Substitute, Uncemented, Open Approach (ICD-10-PCS; CPT 27130; principal; 2022-06-29 09:00)
DX: M80.852A Other osteoporosis with current pathological fracture, left femur, initial encounter for fracture (principal); E87.1 Hypo-osmolality and hyponatremia; G95.0 Syringomyelia and syringobulbia; M62.18 Other rupture of muscle (nontraumatic), other site; I10 Essential (primary) hypertension; F41.1 Generalized anxiety disorder; K21.9 Gastro-esophageal reflux disease without esophagitis; K59.00 Constipation, unspecified; M16.12 Unilateral primary osteoarthritis, left hip; Z98.41 Cataract extraction status, right eye; Z98.42 Cataract extraction status, left eye; Z90.710 Acquired absence of both cervix and uterus; Z96.651 Presence of right artificial knee joint; Z87.891 Personal history of nicotine dependence; Z79.891 Long term (current) use of opiate analgesic; Z79.899 Other long term (current) drug therapy; Z66 Do not resuscitate; Z20.822 Contact with and (suspected) exposure to COVID-19; Z85.3 Personal history of malignant neoplasm of breast; Z96.641 Presence of right artificial hip joint
CPT/HCPCS: 36415; 72192; 73502; 80048; 80053; 81003; 85025; 85027; 85055; 85610; 85730; 86850; 86900; 86901; 87426; 87636; 96361; 96365; 96375; 97110; 97161; 97165; 97530; 97535; 99285; A9270; C1713; C1776; C9803; G0378; J0131; J0171; J0690; J1100; J1644; J2270; J2405; J2704; J2710; J2795; J3010; J7030; J7120